=== PATIENT | female | born 1955 | race Caucasian/White ===

== ENCOUNTER → 2017-10-31 13:18 | Outpatient (CLI) | payer BC, SELFPAY ==
[2017-10-31 13:43] LABS: Basophils # 0.1 K/mm3 (0-0.2); Basophils % 0.8 % (0.1-2.0); Eosinophils # 0.3 K/mm3 (0.0-0.4); Eosinophils % 3.6 % (0.1-12.0); Hematocrit 42.8 % (37.0-47.0); Hemoglobin 13.3 g/dL (12.2-16.2); Lymphocytes # 2.3 K/mm3 (0.7-4.5); Lymphocytes % 26.3 K/mm3 (10-50); Mean Corpuscular HGB Conc 31.1 g/dL (31.8-35.4); Mean Corpuscular Hemoglobin 26.1 pg (27.0-31.2); Mean Corpuscular Volume 83.8 fl (81-99); Mean Platelet Volume 7.7 fl (7.4-10.4); Monocytes # 0.5 K/mm3 (0.1-1.0); Monocytes % 6.2 % (1.7-9.3); Neutrophils # 5.4 K/mm3 (1.8-7.8); Neutrophils % 63.1 % (37.0-80.0); Red Blood Count 5.11 M/mm3 (4.20-5.40); Red Cell Distribution Width 13.7 % (11.5-17.5); White Blood Count 8.6 K/mm3 (4.8-10.8)
[2017-10-31 13:55] LABS: Platelet Count 737 K/mm3 (142-424)
[2017-10-31 14:13] LABS: Alanine Aminotransferase 20 U/L (12-78); Albumin Level 4.1 gm/dL (3.4-5.0); Albumin/Globulin Ratio 1.3 (1.1-1.8); Alkaline Phosphatase 88 U/L (46-116); Anion Gap 12.6 mEq/L (5-15); Aspartate Amino Transferase 17 U/L (15-37); Bilirubin,Total 0.5 mg/dL (0.2-1.0); Blood Urea Nitrogen 12 mg/dL (7-18); Calcium 9.8 mg/dL (8.5-10.1); Carbon Dioxide 30 mmol/L (21.0-32.0); Chloride 108 mmol/L (98-107); Chol/HDL Ratio 3.6 (1-3.5); Cholesterol 222 mg/dL (140-200); Creatinine,Serum 0.89 mg/dL (0.55-1.02); Estimated Glomerular Filt Rate 64 ml/min (>60); GFR (African American) 77 ML/MIN (>60); Globulin 3.1 gm/dl (1.3-3.2); Glucose 93 mg/dL (74-106); HDL Cholesterol 62 mg/dL (29-89); LDL Cholesterol 140 mg/dL (0-130); Potassium 4.6 mmoL/L (3.5-5.1); Sodium 146 mmol/L (136-145); Total Protein,Serum 7.2 gm/dL (6.4-8.2); Triglycerides 101 mg/dL (30-200); VLDL Cholesterol 20 mg/dL (0-40)
[2017-11-01 10:13] LABS: Vitamin D 25 Hydroxy 57.5 ng/mL (30.0-100.0)
== END ==
PROVIDERS: Visit Provider Internal Medicine Adolescent Medicine
DX: E78.5 Hyperlipidemia, unspecified (principal); E55.9 Vitamin D deficiency, unspecified; K22.710 Barrett's esophagus with low grade dysplasia
CPT/HCPCS: 36415; 80053; 80061; 82652; 85025

== ENCOUNTER → 2017-11-05 10:00 | Outpatient (CLI) | payer BC, SELFPAY ==
--- NOTE | 2017-11-05 10:15 | XR_ITS ---
XR chest 2V HISTORY: Shortness of breath ITS.REASON: ASTHMA ORDERING PHYSICIAN: Kemar Shore MD PATIENT AGE: 62 years COMPARISON: PA and lateral chest 11/29/2016 FINDINGS: The lung armstrong are fairly well-expanded and appear clear of infiltrate. There Is a focal opacity left base medial basilar segment which was seen on the previous chest film and also on previous CT scan the chest 11/29/2016 but is slightly more prominent on today's study but likely represents postinflammatory scarring. There is mild generalized cardiomegaly however the vascularity is normal and is no pleural fluid. There is mild dextroscoliotic curvature of the upper lumbar spine. IMPRESSION: Probable post inflammatory scarring left base however since the opacity is slightly more prominent than previous studies consider follow-up CT scan chest for better evaluation.
== END ==
PROVIDERS: PCP Internal Medicine Adolescent Medicine; Visit Provider Internal Medicine Adolescent Medicine
DX: J45.909 Unspecified asthma, uncomplicated (principal)
CPT/HCPCS: 71046

== ENCOUNTER → 2018-05-29 10:02 | Outpatient (CLI) | payer MEDICARE, SELFPAY ==
[2018-05-29 10:33] LABS: Basophils # 0.1 K/mm3 (0-0.2); Basophils % 0.9 % (0.1-2.0); Eosinophils # 0.3 K/mm3 (0.0-0.4); Eosinophils % 3.7 % (0.1-12.0); Hematocrit 43.2 % (37.0-47.0); Hemoglobin 13.4 g/dL (12.2-16.2); Lymphocytes # 2.2 K/mm3 (0.7-4.5); Lymphocytes % 27.3 % (10-50); Mean Corpuscular HGB Conc 31.1 g/dL (31.8-35.4); Mean Corpuscular Volume 80.3 fl (81-99); Mean Platelet Volume 6.8 fl (7.4-10.4); Monocytes # 0.5 K/mm3 (0.1-1.0); Monocytes % 6.1 % (1.7-9.3); Neutrophils # 4.9 K/mm3 (1.8-7.8); Neutrophils % 61.9 % (37.0-80.0); Platelet Count 844 K/mm3 (142-424); Red Blood Count 5.37 M/mm3 (4.20-5.40); Red Cell Distribution Width 14.6 % (11.5-17.5); White Blood Count 7.9 K/mm3 (4.8-10.8)
[2018-05-29 11:18] LABS: Alanine Aminotransferase 24 U/L (12-78); Albumin Level 4.1 gm/dL (3.4-5.0); Albumin/Globulin Ratio 1.2 (1.1-1.8); Alkaline Phosphatase 90 U/L (46-116); Anion Gap 14.2 mEq/L (5-15); Aspartate Amino Transferase 19 U/L (15-37); Bilirubin,Total 0.5 mg/dL (0.2-1.0); Blood Urea Nitrogen 10 mg/dL (7-18); Calcium 9.4 mg/dL (8.5-10.1); Carbon Dioxide 27 mmol/L (21.0-32.0); Chloride 106 mmol/L (98-107); Chol/HDL Ratio 3.3 (1-3.5); Cholesterol 196 mg/dL (140-200); Creatinine,Serum 0.86 mg/dL (0.55-1.02); Estimated Glomerular Filt Rate 66 ml/min (>60); Ferritin 13 ng/mL (8-388); GFR (African American) 80 ML/MIN (>60); Globulin 3.3 gm/dl (1.3-3.2); Glucose 96 mg/dL (74-106); HDL Cholesterol 60 mg/dL (29-89); LDL Cholesterol 120 mg/dL (0-130); Potassium 4.2 mmoL/L (3.5-5.1); Sodium 143 mmol/L (136-145); Total Protein,Serum 7.4 gm/dL (6.4-8.2); Triglycerides 81 mg/dL (30-200); VLDL Cholesterol 16 mg/dL (0-40)
[2018-05-30 09:23] LABS: Vitamin D 25 Hydroxy 50.2 ng/mL (30.0-100.0)
== END ==
PROVIDERS: Visit Provider Internal Medicine Adolescent Medicine
DX: E55.9 Vitamin D deficiency, unspecified (principal); D50.9 Iron deficiency anemia, unspecified; E78.5 Hyperlipidemia, unspecified
CPT/HCPCS: 36415; 80053; 80061; 82652; 82728; 85025

== ENCOUNTER → 2018-06-03 09:11 | Outpatient (CLI) | payer MEDICARE, SELFPAY ==
--- NOTE | 2018-06-03 09:18 | XR_ITS ---
XR foot wt bearing LT 3V, XR foot wt bearing RT 3V Ordering Physician: Ro Charles DPM Patient Age: 63 years: Female HISTORY: ITS.REASON: pain left foot pain at Arch of left foot Right foot pain at Heel. TECHNIQUE: Left foot 3 view weightbearing Right foot 3 view weightbearing COMPARISON :No studies prior to today LEFT FOOT there is mild narrowing degenerative changes at MTP joint. Bones well mineralized. Metatarsals intact no stress fracture. Adequate plantar arch bilateral... Note very slight medial position of the proximal phalanx third toe relative to the head of the third metatarsal. Here at the left foot compared to the right... ====== RIGHT FOOT Regarding pain at the heel there is a 5 mm plantar calcaneal spur. No additional findings at the calcaneus. 11 mm heel pad thickness . Certainly no heel pad thickening. Adequate plantar arch The forefoot demonstrates a mild hallux valgus deformity and mild degenerative changes at first MTP joint. IMPRESSION: Left foot . No prominent findings. mild degenerative changes first MTP joint are noted Right foot. Mild hallux deformity more evident on right. 5 mm plantar calcaneal spur noted.
== END ==
PROVIDERS: PCP Internal Medicine Adolescent Medicine; Visit Provider Podiatrist
DX: M79.673 Pain in unspecified foot (principal)
CPT/HCPCS: 73630; 87102; 87206; 87220

== ENCOUNTER → 2018-06-03 16:28 | Outpatient (CLI) | payer MEDICARE, SELFPAY | PROVIDERS: Visit Provider Podiatrist | DX: M79.672 Pain in left foot (principal); M79.671 Pain in right foot; B35.1 Tinea unguium | CPT/HCPCS: 73630; 87102; 87206; 87220 ==

== ENCOUNTER → 2018-06-04 12:58 | Outpatient (POV) | payer MEDICARE, SELFPAY | PROVIDERS: Visit Provider Dermatology | DX: Z00.00 Encounter for general adult medical examination without abnormal findings (principal) ==

== ENCOUNTER → 2018-11-30 09:47 | Outpatient (CLI) | payer MEDICARE, SELFPAY ==
[2018-11-30 10:09] LABS: Basophils # 0.1 K/mm3 (0-0.2); Basophils % 0.9 % (0.1-2.0); Eosinophils # 0.4 K/mm3 (0.0-0.4); Eosinophils % 4.3 % (0.1-12.0); Hematocrit 40.5 % (37.0-47.0); Hemoglobin 12.3 g/dL (12.2-16.2); Lymphocytes # 2.1 K/mm3 (0.7-4.5); Lymphocytes % 23.3 % (10-50); Mean Corpuscular HGB Conc 30.3 g/dL (31.8-35.4); Mean Corpuscular Hemoglobin 22.8 pg (27.0-31.2); Mean Corpuscular Volume 75.2 fl (81-99); Mean Platelet Volume 7.5 fl (7.4-10.4); Monocytes # 0.5 K/mm3 (0.1-1.0); Monocytes % 5.9 % (1.7-9.3); Neutrophils # 5.9 K/mm3 (1.8-7.8); Neutrophils % 65.7 % (37.0-80.0); Red Blood Count 5.39 M/mm3 (4.20-5.40); Red Cell Distribution Width 15.3 % (11.5-17.5)
[2018-11-30 10:41] LABS: Alanine Aminotransferase 18 U/L (12-78); Albumin Level 3.9 gm/dL (3.4-5.0); Albumin/Globulin Ratio 1.4 (1.1-1.8); Alkaline Phosphatase 70 U/L (46-116); Anion Gap 13.2 mEq/L (5-15); Aspartate Amino Transferase 16 U/L (15-37); Bilirubin,Total 0.5 mg/dL (0.2-1.0); Blood Urea Nitrogen 10 mg/dL (7-18); Calcium 9.1 mg/dL (8.5-10.1); Carbon Dioxide 28 mmol/L (21.0-32.0); Chloride 107 mmol/L (98-107); Chol/HDL Ratio 3.1 (1-3.5); Cholesterol 177 mg/dL (140-200); Creatinine,Serum 0.84 mg/dL (0.55-1.02); Estimated Glomerular Filt Rate 68 ml/min (>60); GFR (African American) 82 ML/MIN (>60); Globulin 2.8 gm/dl (1.3-3.2); Glucose 100 mg/dL (74-106); HDL Cholesterol 57 mg/dL (29-89); LDL Cholesterol 107 mg/dL (0-130); Potassium 4.2 mmoL/L (3.5-5.1); Sodium 144 mmol/L (136-145); Total Protein,Serum 6.7 gm/dL (6.4-8.2); Triglycerides 65 mg/dL (30-200); VLDL Cholesterol 13 mg/dL (0-40)
[2018-11-30 11:26] LABS: Platelet Count 1087 K/mm3 (142-424)
== END ==
PROVIDERS: Visit Provider Internal Medicine Adolescent Medicine
DX: E78.5 Hyperlipidemia, unspecified (principal); D50.9 Iron deficiency anemia, unspecified
CPT/HCPCS: 36415; 80053; 80061; 85025

== ENCOUNTER → 2018-12-19 11:41 | Outpatient (CLI) | payer MEDICARE, SELFPAY ==
[2018-12-19 12:26] LABS: Basophils # 0.1 K/mm3 (0-0.2); Basophils % 0.9 % (0.1-2.0); Eosinophils # 0.3 K/mm3 (0.0-0.4); Eosinophils % 3.7 % (0.1-12.0); Hematocrit 40.2 % (37.0-47.0); Hemoglobin 12.2 g/dL (12.2-16.2); Lymphocytes # 2.1 K/mm3 (0.7-4.5); Lymphocytes % 24.3 % (10-50); Mean Corpuscular HGB Conc 30.4 g/dL (31.8-35.4); Mean Corpuscular Hemoglobin 23.2 pg (27.0-31.2); Mean Corpuscular Volume 76.2 fl (81-99); Monocytes # 0.5 K/mm3 (0.1-1.0); Monocytes % 5.7 % (1.7-9.3); Neutrophils # 5.6 K/mm3 (1.8-7.8); Neutrophils % 65.4 % (37.0-80.0); Red Blood Count 5.27 M/mm3 (4.20-5.40); Red Cell Distribution Width 14.9 % (11.5-17.5); White Blood Count 8.5 K/mm3 (4.8-10.8)
[2018-12-19 12:31] LABS: Platelet Count 1065 K/mm3 (142-424)
[2018-12-19 15:28] LABS: Alanine Aminotransferase 12 U/L (12-78); Albumin/Globulin Ratio 1.4 (1.1-1.8); Alkaline Phosphatase 70 U/L (46-116); Anion Gap 14.5 mEq/L (5-15); Aspartate Amino Transferase 14 U/L (15-37); Bilirubin,Total 0.6 mg/dL (0.2-1.0); Blood Urea Nitrogen 11 mg/dL (7-18); Calcium 9.6 mg/dL (8.5-10.1); Carbon Dioxide 27 mmol/L (21.0-32.0); Chloride 107 mmol/L (98-107); Creatinine,Serum 0.79 mg/dL (0.55-1.02); Estimated Glomerular Filt Rate 73 ml/min (>60); Ferritin 11 ng/mL (8-388); GFR (African American) 88 ML/MIN (>60); Globulin 2.9 gm/dl (1.3-3.2); Glucose 94 mg/dL (74-106); Potassium 4.5 mmoL/L (3.5-5.1); Sodium 144 mmol/L (136-145); Total Protein,Serum 6.9 gm/dL (6.4-8.2)
[2018-12-20 09:15] LABS: Iron 33 ug/dL (27-139); UIBC 359 ug/dL (118-369)
[2018-12-20 16:15] LABS: Hemoglobin (Hgb) Solubility Negative (Negative)
[2018-12-20 17:12] LABS: Iron Saturation 8 % (15-55)
== END ==
PROVIDERS: Visit Provider Internal Medicine Medical Oncology
DX: D69.6 Thrombocytopenia, unspecified (principal)
CPT/HCPCS: 36415; 80053; 81270; 82728; 83021; 83540; 83550; 85025; 85660

== ENCOUNTER → 2018-12-27 07:45 | Outpatient (CLI) | payer MEDICARE, SELFPAY ==
--- NOTE | 2018-12-27 07:51 | US_ITS ---
PROCEDURE: US ABDOMEN LIMITED CLINICAL INDICATION: THROMBOCYSTOSIS COMPARISON: ABDPELW/O CT ABD PELVIS W/O CONTRAST from 05/07/2013 FINDINGS: The study was limited to evaluation of the left upper quadrant. The spleen is upper limits normal in size and shows homogeneous echogenicity. It measures 11.6-12.1 cm in length. There has been slight overall increase in size of the spleen since previous CT scan abdomen pelvis 05/07/2013 the left kidney measures 11.0 x 4.9 by 5.1 cm and there is a cortical thickness of 1.04 cm. There is no hydronephrosis or other abnormality. IMPRESSION: Borderline splenic enlargement, grossly normal appearing left kidney Dictated by: Dr. Dwayne Galvan MD 12/27/2018 08:[address] Dwayne Galvan MD in [place] 12/27/2018 08:53
== END ==
PROVIDERS: PCP Internal Medicine Adolescent Medicine; Visit Provider Internal Medicine Medical Oncology
DX: D69.6 Thrombocytopenia, unspecified (principal)
CPT/HCPCS: 76705

== ENCOUNTER → 2019-01-22 13:29 | Outpatient (CLI) | payer MEDICARE, SELFPAY ==
[2019-01-22 14:29] LABS: Basophils # 0.1 K/mm3 (0-0.2); Basophils % 1.3 % (0.1-2.0); Eosinophils # 0.3 K/mm3 (0.0-0.4); Hematocrit 42.4 % (42.0-52.0); Hemoglobin 12.7 g/dL (14.1-18.0); Lymphocytes # 1.8 K/mm3 (0.7-4.5); Mean Corpuscular Hemoglobin 23.6 pg (27.0-31.2); Mean Corpuscular Volume 78.6 fl (81-94); Mean Platelet Volume 7.7 fl (7.4-10.4); Monocytes # 0.4 K/mm3 (0.1-1.0); Monocytes % 5.6 % (1.7-9.3); Neutrophils # 5.2 K/mm3 (1.8-7.8); Neutrophils % 66.1 % (37.0-80.0); Platelet Count 567 K/mm3 (142-424); Red Cell Distribution Width 15.8 % (11.5-17.5); White Blood Count 7.8 K/mm3 (4.8-10.8)
[2019-01-22 14:42] LABS: Alanine Aminotransferase 17 U/L (12-78); Albumin/Globulin Ratio 1.4 (1.1-1.8); Alkaline Phosphatase 79 U/L (46-116); Anion Gap 14.2 mEq/L (5-15); Aspartate Amino Transferase 14 U/L (15-37); Bilirubin,Total 0.6 mg/dL (0.2-1.0); Blood Urea Nitrogen 11 mg/dL (7-18); Calcium 9.2 mg/dL (8.5-10.1); Carbon Dioxide 27 mmol/L (21.0-32.0); Chloride 106 mmol/L (98-107); Creatinine,Serum 0.79 mg/dL (0.70-1.30); Estimated Glomerular Filt Rate 98 ml/min (>60); GFR (African American) 119 ML/MIN (>60); Globulin 2.9 gm/dl (1.3-3.2); Glucose 68 mg/dL (74-106); Potassium 4.2 mmoL/L (3.5-5.1); Sodium 143 mmol/L (136-145); Total Protein,Serum 6.9 gm/dL (6.4-8.2)
== END ==
PROVIDERS: Visit Provider Internal Medicine Medical Oncology
DX: D69.6 Thrombocytopenia, unspecified (principal)
CPT/HCPCS: 36415; 80053; 85025

== ENCOUNTER → 2019-02-06 10:58 | Outpatient (CLI) | payer MEDICARE, SELFPAY ==
[2019-02-06 11:46] LABS: Basophils # 0.1 K/mm3 (0-0.2); Basophils % 1.4 % (0.1-2.0); Eosinophils # 0.3 K/mm3 (0.0-0.4); Eosinophils % 3.4 % (0.1-12.0); Hematocrit 40.6 % (42.0-52.0); Hemoglobin 12.2 g/dL (14.1-18.0); Lymphocytes # 2.2 K/mm3 (0.7-4.5); Lymphocytes % 23.9 % (10-50); Mean Corpuscular HGB Conc 30.1 g/dL (31.8-35.4); Mean Corpuscular Hemoglobin 23.9 pg (27.0-31.2); Mean Corpuscular Volume 79.4 fl (81-94); Mean Platelet Volume 8.7 fl (7.4-10.4); Monocytes # 0.5 K/mm3 (0.1-1.0); Monocytes % 5.8 % (1.7-9.3); Neutrophils # 6.1 K/mm3 (1.8-7.8); Neutrophils % 65.5 % (37.0-80.0); Platelet Count 618 K/mm3 (142-424); Red Blood Count 5.11 M/mm3 (4.60-6.20); Red Cell Distribution Width 17.5 % (11.5-17.5); White Blood Count 9.3 K/mm3 (4.8-10.8)
== END ==
PROVIDERS: Visit Provider Internal Medicine Hematology & Oncology
DX: D69.6 Thrombocytopenia, unspecified (principal)
CPT/HCPCS: 36415; 85025

== ENCOUNTER → 2019-03-06 13:23 | Outpatient (CLI) | payer MEDICARE, SELFPAY ==
[2019-03-06 13:36] LABS: Basophils # 0.1 K/mm3 (0-0.2); Basophils % 1.2 % (0.1-2.0); Eosinophils # 0.3 K/mm3 (0.0-0.4); Hematocrit 40.3 % (42.0-52.0); Hemoglobin 12.6 g/dL (14.1-18.0); Lymphocytes # 1.6 K/mm3 (0.7-4.5); Lymphocytes % 21.7 % (10-50); Mean Corpuscular HGB Conc 31.2 g/dL (31.8-35.4); Mean Corpuscular Hemoglobin 24.8 pg (27.0-31.2); Mean Corpuscular Volume 79.4 fl (81-94); Mean Platelet Volume 8.6 fl (7.4-10.4); Monocytes # 0.3 K/mm3 (0.1-1.0); Monocytes % 4.4 % (1.7-9.3); Neutrophils % 68.7 % (37.0-80.0); Platelet Count 529 K/mm3 (142-424); Red Blood Count 5.07 M/mm3 (4.60-6.20); Red Cell Distribution Width 17.8 % (11.5-17.5); White Blood Count 7.2 K/mm3 (4.8-10.8)
== END ==
PROVIDERS: Visit Provider Internal Medicine Hematology & Oncology
DX: D64.9 Anemia, unspecified (principal)
CPT/HCPCS: 36415; 85025

== ENCOUNTER → 2019-04-09 10:43 | Outpatient (CLI) | payer MEDICARE, SELFPAY ==
[2019-04-09 11:12] LABS: Basophils # 0.1 K/mm3 (0-0.2); Basophils % 1.4 % (0.1-2.0); Eosinophils # 0.2 K/mm3 (0.0-0.4); Eosinophils % 2.9 % (0.1-12.0); Hematocrit 41.1 % (42.0-52.0); Hemoglobin 12.8 g/dL (14.1-18.0); Lymphocytes # 1.4 K/mm3 (0.7-4.5); Lymphocytes % 24.7 % (10-50); Mean Corpuscular Hemoglobin 25.4 pg (27.0-31.2); Mean Corpuscular Volume 81.9 fl (81-94); Mean Platelet Volume 8.3 fl (7.4-10.4); Monocytes # 0.3 K/mm3 (0.1-1.0); Neutrophils # 3.9 K/mm3 (1.8-7.8); Neutrophils % 66.1 % (37.0-80.0); Platelet Count 392 K/mm3 (142-424); Red Blood Count 5.02 M/mm3 (4.60-6.20); Red Cell Distribution Width 17.6 % (11.5-17.5); White Blood Count 5.9 K/mm3 (4.8-10.8)
[2019-04-09 12:18] LABS: Alanine Aminotransferase 11 U/L (12-78); Albumin Level 3.8 gm/dL (3.4-5.0); Albumin/Globulin Ratio 1.5 (1.1-1.8); Alkaline Phosphatase 69 U/L (46-116); Anion Gap 14.5 mEq/L (5-15); Aspartate Amino Transferase 16 U/L (15-37); Bilirubin,Total 0.7 mg/dL (0.2-1.0); Blood Urea Nitrogen 10 mg/dL (7-18); Calcium 8.7 mg/dL (8.5-10.1); Carbon Dioxide 28 mmol/L (21.0-32.0); Chloride 110 mmol/L (98-107); Creatinine,Serum 0.98 mg/dL (0.70-1.30); Estimated Glomerular Filt Rate 77 ml/min (>60); GFR (African American) 93 ML/MIN (>60); Globulin 2.5 gm/dl (1.3-3.2); Glucose 101 mg/dL (74-106); Potassium 4.5 mmoL/L (3.5-5.1); Sodium 148 mmol/L (136-145); Total Protein,Serum 6.3 gm/dL (6.4-8.2)
== END ==
PROVIDERS: Visit Provider Internal Medicine Adolescent Medicine
DX: D64.9 Anemia, unspecified (principal)
CPT/HCPCS: 36415; 80053; 85025

== ENCOUNTER → 2019-04-16 08:13 | Outpatient (CLI) | payer MEDICARE, SELFPAY ==
--- NOTE | 2019-04-16 08:17 | CT_ITS ---
PROCEDURE: CT ABDOMEN PELVIS W CON CLINICAL INDICATION: HEMATURIA Microscopic hematuria, history of flank pain COMPARISON: ABDPELW CT ABD PELVIS W/ CONTRAST from 04/26/2013 ABDPELW/O CT ABD PELVIS W/O CONTRAST from 05/07/2013 TECHNIQUE: IV Contrast: 75ML OPTIRAY 350 Oral Contrast none Axial images obtained with sagittal and coronal reformats. All CT scans at the facility use one or more dose reduction, viz: automated exposure control, ma/kV adjustment per patient size (including targeted exams where dose is matched to indication, i.e. head), or iterative reconstruction technique. FINDINGS: LOWER THORAX: There is a moderate-sized hiatal hernia with thickening of the distal esophagus and fluid in the distal esophagus. There is minimal thickening of the pericardium posteriorly. ABDOMEN & PELVIS: Prior cholecystectomy. The liver, spleen, and adrenal glands have an unremarkable appearance. There is diffuse fatty infiltration of the pancreas. There is a retro aortic left renal vein. No renal or ureteral calculi are evident. There is minimal ectasia of the right ureter which is nonspecific. No definite obstructing calculi are evident. No intestinal obstruction or free air. There is a mild amount of retained colonic feces. No evidence of appendicitis or diverticulitis. There are scattered diverticula noted with no evidence of diverticulitis. There are post hysterectomy changes. There is mild thoracolumbar curvature convex right with degenerative changes in the thoracic and lumbar spine. IMPRESSION: 1. Moderate-sized hiatal hernia with distension and fluid of the distal esophagus with mild esophageal wall thickening distally. This is incompletely imaged. Upper endoscopy or barium swallow may provide further evaluation. 2. No renal or ureteral calculi. There is some minimal ectasia of the right ureter which is of questionable significance. No definite ureteral calculus apparent 3. Other nonacute findings as described above Dictated by: Bert Andre MD 04/17/2019 06:18 Electronically signed by Bert Andre MD in [facility] 04/17/2019 06:18
== END ==
PROVIDERS: PCP Internal Medicine Adolescent Medicine; Visit Provider Internal Medicine Adolescent Medicine
DX: R31.29 Other microscopic hematuria (principal)
CPT/HCPCS: 74177; Q9967

== ENCOUNTER 2019-05-09 10:00 | Outpatient (RCR) | payer MEDICARE, SELFPAY ==
--- NOTE | 2019-04-21 11:38 | HMH.PTOPEV ---
PT Outpatient Evaluation Rehab PT Outpatient Evaluation Start: 04/21/19 11:18 Freq: Status: Active Protocol: Document 04/21/19 11:19 KE (Rec: 04/21/19 11:38 KE [id number]) Electronically Signed By Christiano Almanzar, PT 04/21/19 11:19 Outpatient Therapy Subjective History Subjective History Pt reports h/o chronic B foot/ heel pain for ~1 yr, however, pt reports R > L sided pain currently, and marked improvement in both since using new PF splint. Pt reports localized R mid foot/ arch pain with prolonged standing/walking on concrete. Chief Complaint Pain,Stiff Symptom Type Ache,Throb,Sharp,Dull Symptoms Relieved By Nothing,Ice,Brace/Support Symptoms Aggravated By Standing,Walking Prior Functional Limitations Standing,Walking Current Functional Limitations Sitting,Walking Symptom Description Constant but Variable Level of pain today (0-10) 2 Pain scale - at its best (0-10) 2 Pain scale - at its worst (0-10) 6 Ankle/Foot Eval Gait Observation General Gait Pattern Observation Antalgic Gait Palpation Tenderness right Ankle/Foot Palpation Findings Tenderness Ankle/Foot Palpation Overall Comment 3/4 plantar fascia left Ankle/Foot Palpation Findings Tenderness Ankle/Foot Palpation Overall Comment 0-1/4 plantar fascia ROM right Ankle/Foot Dorsiflexion w/Knee Extended 0-5 Active Range Motion (degrees) Ankle/Foot Plantar Flexion Active Range 0-40 of Motion (degrees) Ankle/Foot Eversion Active Range of 0-20 Motion (degrees) Ankle/Foot Inversion Active Range of 0-35 Motion (degrees) left Ankle/Foot Dorsiflexion w/Knee Extended 0-5 Active Range Motion (degrees) Ankle/Foot Plantar Flexion Active Range 0-40 of Motion (degrees) Ankle/Foot Eversion Active Range of 0-20 Motion (degrees) Ankle/Foot Inversion Active Range of 0-35 Motion (degrees) MMT bilateral Ankle Dorsiflexion Strength Grade 4 Good Ankle Plantarflexion Strength Grade 4 Good Foot Eversion Strength Grade 4- Good- Foot Inversion Strength Grade 4- Good- Outpatient Therapy Assessment Impairments Problems/Impairmments Palpation Tenderness,Impaired Range of Motion,Impaired Strength,Impaired Gait Pattern ,Impaired Walking,Impaired Standing,Subjective C/O Pain, Impaired Self Care/Self Management Prognosis Rehab
== END 2019-05-09 11:00 | disposition home or self-care (01) ==
LOC: PT 10:00
PROVIDERS: Visit Provider Podiatrist
DX: M72.2 Plantar fascial fibromatosis (principal); M76.821 Posterior tibial tendinitis, right leg; M76.822 Posterior tibial tendinitis, left leg
CPT/HCPCS: 97035; 97110; 97163

== ENCOUNTER → 2019-05-15 14:59 | Outpatient (CLI) | payer MEDICARE, SELFPAY | PROVIDERS: Visit Provider Urology | DX: R31.0 Gross hematuria (principal) | CPT/HCPCS: 87086 ==

== ENCOUNTER → 2019-06-04 11:40 | Outpatient (CLI) | payer MEDICARE, SELFPAY ==
[2019-06-04 12:13] LABS: Basophils # 0.1 K/mm3 (0-0.2); Basophils % 1.4 % (0.1-2.0); Eosinophils # 0.2 K/mm3 (0.0-0.4); Eosinophils % 3.6 % (0.1-12.0); Hematocrit 42.3 % (37.0-47.0); Hemoglobin 13.8 g/dL (12.2-16.2); Lymphocytes # 1.6 K/mm3 (0.7-4.5); Lymphocytes % 23.6 % (10-50); Mean Corpuscular HGB Conc 32.5 g/dL (31.8-35.4); Mean Corpuscular Hemoglobin 27.8 pg (27.0-31.2); Mean Corpuscular Volume 85.4 fl (81-99); Mean Platelet Volume 8.3 fl (7.4-10.4); Monocytes # 0.4 K/mm3 (0.1-1.0); Monocytes % 6.1 % (1.7-9.3); Neutrophils # 4.4 K/mm3 (1.8-7.8); Neutrophils % 65.3 % (37.0-80.0); Platelet Count 382 K/mm3 (142-424); Red Blood Count 4.95 M/mm3 (4.20-5.40); Red Cell Distribution Width 15.9 % (11.5-17.5); White Blood Count 6.7 K/mm3 (4.8-10.8)
[2019-06-04 15:18] LABS: Chloride 103 mmol/L (98-107); Potassium 4.7 mmoL/L (3.5-5.1); Sodium 141 mmol/L (136-145)
[2019-06-04 15:21] LABS: Alanine Aminotransferase 14 U/L (12-78); Albumin Level 4.3 g/dl (3.5-5.0); Albumin/Globulin Ratio 1.7 (1.1-1.8); Alkaline Phosphatase 64 U/L (38-126); Anion Gap 12.7 mEq/L (5-15); Aspartate Amino Transferase 29 U/L (14-36); Bilirubin,Total 0.5 mg/dl (0.2-1.3); Blood Urea Nitrogen 13 mg/dl (7-17); Carbon Dioxide 30 mmol/L (22.0-30.0); Estimated Glomerular Filt Rate 72 ml/min (>60); GFR (African American) 87 ML/MIN (>60); Globulin 2.6 g/dL (1.3-3.2); Total Protein,Serum 6.9 g/dl (6.3-8.2)
[2019-06-04 15:22] LABS: Calcium 9.8 mg/dl (8.4-10.2); Glucose 81 mg/dl (74-100)
== END ==
PROVIDERS: Visit Provider Internal Medicine Medical Oncology
DX: D69.3 Immune thrombocytopenic purpura (principal); D50.9 Iron deficiency anemia, unspecified
CPT/HCPCS: 36415; 80053; 85025

== ENCOUNTER → 2019-08-27 09:44 | Outpatient (CLI) | payer MEDICARE, SELFPAY ==
[2019-08-27 10:06] LABS: Basophils # 0.1 K/mm3 (0-0.2); Basophils % 1.6 % (0.1-2.0); Eosinophils # 0.3 K/mm3 (0.0-0.4); Eosinophils % 4.8 % (0.1-12.0); Hematocrit 38.2 % (37.0-47.0); Hemoglobin 12.2 g/dL (12.2-16.2); Lymphocytes # 1.6 K/mm3 (0.7-4.5); Lymphocytes % 27.4 % (10-50); Mean Corpuscular HGB Conc 31.8 g/dL (31.8-35.4); Mean Corpuscular Hemoglobin 26.8 pg (27.0-31.2); Mean Corpuscular Volume 84.1 fl (81-99); Monocytes # 0.3 K/mm3 (0.1-1.0); Monocytes % 5.2 % (1.7-9.3); Neutrophils # 3.6 K/mm3 (1.8-7.8); Platelet Count 359 K/mm3 (142-424); Red Blood Count 4.54 M/mm3 (4.20-5.40); Red Cell Distribution Width 14.4 % (11.5-17.5); White Blood Count 5.9 K/mm3 (4.8-10.8)
[2019-08-27 10:47] LABS: Alanine Aminotransferase 18 U/L (12-78); Albumin Level 4.1 g/dl (3.5-5.0); Albumin/Globulin Ratio 1.6 (1.1-1.8); Alkaline Phosphatase 59 U/L (38-126); Anion Gap 12.2 mEq/L (5-15); Aspartate Amino Transferase 27 U/L (14-36); Bilirubin,Total 0.4 mg/dl (0.2-1.3); Blood Urea Nitrogen 9 mg/dl (7-17); Calcium 9.7 mg/dl (8.4-10.2); Carbon Dioxide 29 mmol/L (22.0-30.0); Chloride 103 mmol/L (98-107); Estimated Glomerular Filt Rate 72 ml/min (>60); GFR (African American) 87 ML/MIN (>60); Globulin 2.6 g/dL (1.3-3.2); Glucose 133 mg/dl (74-100); Potassium 4.2 mmoL/L (3.5-5.1); Sodium 140 mmol/L (136-145); Total Protein,Serum 6.7 g/dl (6.3-8.2)
== END ==
PROVIDERS: Visit Provider Internal Medicine Medical Oncology
DX: D64.9 Anemia, unspecified (principal)
CPT/HCPCS: 36415; 80053; 85025

== ENCOUNTER → 2020-01-15 09:52 | Outpatient (CLI) | payer MEDICARE, SELFPAY ==
[2020-01-15 10:31] LABS: Basophils # 0.1 K/mm3 (0-0.2); Basophils % 1.8 % (0.1-2.0); Eosinophils # 0.3 K/mm3 (0.0-0.4); Eosinophils % 3.8 % (0.1-12.0); Hematocrit 41.4 % (37.0-47.0); Hemoglobin 13.3 g/dL (12.2-16.2); Lymphocytes % 28.9 % (10-50); Mean Corpuscular Hemoglobin 25.5 pg (27.0-31.2); Mean Corpuscular Volume 79.7 fl (81-99); Mean Platelet Volume 7.9 fl (7.4-10.4); Monocytes # 0.4 K/mm3 (0.1-1.0); Neutrophils # 4.1 K/mm3 (1.8-7.8); Neutrophils % 59.5 % (37.0-80.0); Platelet Count 542 K/mm3 (142-424); Red Blood Count 5.19 M/mm3 (4.20-5.40); Red Cell Distribution Width 14.4 % (11.5-17.5); White Blood Count 6.8 K/mm3 (4.8-10.8)
[2020-01-15 11:18] LABS: Chloride 106 mmol/L (98-107)
[2020-01-15 11:19] LABS: Potassium 4.1 mmoL/L (3.5-5.1); Sodium 141 mmol/L (136-145)
[2020-01-15 11:21] LABS: Alanine Aminotransferase 14 U/L (12-78); Alkaline Phosphatase 68 U/L (38-126); Aspartate Amino Transferase 28 U/L (14-36); Bilirubin,Total 0.7 mg/dl (0.2-1.3); Blood Urea Nitrogen 12 mg/dl (7-17); Estimated Glomerular Filt Rate 72 ml/min (>60); GFR (African American) 87 ML/MIN (>60)
[2020-01-15 11:22] LABS: Albumin Level 4.3 g/dl (3.5-5.0); Albumin/Globulin Ratio 1.6 (1.1-1.8); Anion Gap 13.1 mEq/L (5-15); Calcium 9.7 mg/dl (8.4-10.2); Carbon Dioxide 26 mmol/L (22.0-30.0); Globulin 2.7 g/dL (1.3-3.2); Glucose 84 mg/dl (74-100)
== END ==
PROVIDERS: Visit Provider Internal Medicine Medical Oncology
DX: D64.9 Anemia, unspecified (principal)
CPT/HCPCS: 36415; 80053; 85025

== ENCOUNTER → 2020-06-15 10:58 | Outpatient (CLI) | payer MEDICARE, SELFPAY ==
[2020-06-15 11:34] LABS: Basophils # 0.2 K/mm3 (0-0.2); Basophils % 2.1 % (0.1-2.0); Eosinophils # 0.4 K/mm3 (0.0-0.4); Eosinophils % 5.1 % (0.1-12.0); Hematocrit 40.9 % (37.0-47.0); Hemoglobin 12.5 g/dL (12.2-16.2); Lymphocytes # 2.1 K/mm3 (0.7-4.5); Lymphocytes % 27.8 % (10-50); Mean Corpuscular HGB Conc 30.4 g/dL (31.8-35.4); Mean Corpuscular Volume 78.8 fl (81-99); Mean Platelet Volume 8.1 fl (7.4-10.4); Monocytes # 0.4 K/mm3 (0.1-1.0); Monocytes % 5.2 % (1.7-9.3); Neutrophils # 4.6 K/mm3 (1.8-7.8); Neutrophils % 59.8 % (37.0-80.0); Platelet Count 537 K/mm3 (142-424); Red Blood Count 5.19 M/mm3 (4.20-5.40); Red Cell Distribution Width 15.9 % (11.5-17.5); White Blood Count 7.6 K/mm3 (4.8-10.8)
[2020-06-15 11:46] LABS: Chloride 109 mmol/L (98-107); Sodium 143 mmol/L (136-145)
[2020-06-15 11:47] LABS: Potassium 4.3 mmoL/L (3.5-5.1)
[2020-06-15 11:49] LABS: Alanine Aminotransferase 13 U/L (12-78); Alkaline Phosphatase 83 U/L (38-126); Anion Gap 13.3 mEq/L (5-15); Aspartate Amino Transferase 25 U/L (14-36); Bilirubin,Total 0.5 mg/dl (0.2-1.3); Blood Urea Nitrogen 11 mg/dl (7-17); Carbon Dioxide 25 mmol/L (22.0-30.0); Estimated Glomerular Filt Rate 83 ml/min (>60); GFR (African American) 101 ML/MIN (>60)
[2020-06-15 11:50] LABS: Albumin Level 4.3 g/dl (3.5-5.0); Albumin/Globulin Ratio 1.9 (1.1-1.8); Calcium 9.3 mg/dl (8.4-10.2); Globulin 2.3 g/dL (1.3-3.2); Glucose 91 mg/dl (74-100); Total Protein,Serum 6.6 g/dl (6.3-8.2)
== END ==
PROVIDERS: Visit Provider Internal Medicine Medical Oncology
DX: D47.3 Essential (hemorrhagic) thrombocythemia (principal)
CPT/HCPCS: 36415; 80053; 85025

== ENCOUNTER 2020-06-29 22:43 | Emergency (ER) | payer MEDICARE, SELFPAY ==
[2020-06-29 23:19] VITALS: BP 174/117; PULSE 95; RESP 22; TEMP 36.7; O2SAT 98; BMI 26.1
--- NOTE | 2020-06-29 23:29 | ECG_ITS ---
APPROVED REPORT Exam: Resting ECG HR:87 bpm ECG Measurements Heart Rate 87 AXES MA 190 P 41 QRSd 76 QRS -13 QT 344 T 26 QTc 413 Conclusion Normal sinus rhythm Isolated Q-wave in III. Poor R wave progression, previously noted Abnormal ECG Electronically signed by : Kemar Shore, 07/01/2020 13:57:12
--- NOTE | 2020-06-29 23:29 | XR_ITS ---
PROCEDURE: XR CHEST 2V CLINICAL HISTORY: MIDSTERNAL CP COMPARISON: CR CXR2 CHEST-AP VIEW ONLY from 05/08/2013 CR CXR CHEST(2 VIEWS-NOT PORTABLE) from 11/29/2016 CT CTAC CTA-CHEST from 11/29/2016 CR CXR2V XR chest 2V from 11/05/2017 FINDINGS: The cardiomediastinal silhouette and pulmonary vascularity are within normal limits. The lungs are clear without infiltrates, suspicious nodules, or pleural effusions. There are degenerative changes in the thoracic spine with mild thoracolumbar scoliosis convex right IMPRESSION: No acute findings. Dictated by: Bert Andre MD 06/30/2020 05:45 Bert Andre MD in [facility] 06/30/2020 05:45
--- NOTE | 2020-06-29 23:37 | HMH.EDGENADL ---
ED Disposition Clinical Impression: Esophagitis GERD (gastroesophageal reflux disease) Qualifiers: Esophagitis presence: with esophagitis Esophagitis bleeding: without hemorrhage Qualified Code(s): K21.00 - Gastro-esophageal reflux disease with esophagitis, without bleeding Disposition: Home, Self-Care Condition on Discharge: Good Instructions: DI for Atypical Chest Pain Additional Instructions: Continue Protonix. Contact your sports journalist in the morning for further treatment. Referrals: Kemar Shore MD [Primary Care Provider] - - Critical Care Critical Care Time: No Attestation: On 06/29/20, the high probability of a clinically significant, sudden or life threatening deterioration of the following system(s) required my full and direct attention, intervention and personal management. The time I documented below is in addition to time spent performing reported procedures but includes the following listed in this critical care notation. Medical Decision Making - Morales Inquiry Pt receiving controlled substance: No Vital Signs: 06/29/20 23:19 Temperature 98.1 F Temperature Source Oral Pulse Rate [Right Brachial] 95 H Respiratory Rate 22 Blood Pressure [Right Arm] 174/117 H Blood Pressure Mean [Right Arm] 136 Blood Pressure Source [Right Arm] Automatic Cuff Blood Pressure Position [Right Arm] Sitting 02 Sat by Pulse Oximetry 98 Oxygen Delivery Method Room Air - Lab Data Lab Results 06/29/20 23:10: WBC 7.7, RBC 5.43 H, Hgb 12.9, Hct 41.5, MCV 76.5 L, MCH 23.9 L, MCHC 31.2 L, RDW 15.8, Plt Count 541 H, MPV 8.3, Neut % (Auto) 55.7, Lymph % (Auto) 32.1, [place] % (Auto) 6.7, Eos % (Auto) 3.9, Baso % (Auto) 1.7, Neut # (Auto) 4.3, Lymph # (Auto) 2.5, [place] # (Auto) 0.5, Eos # (Auto) 0.3, Baso # (Auto) 0.1 06/29/20 23:10: Sodium 141, Potassium 4.0, Chloride 105, Carbon Dioxide 26, Anion Gap 14.0, BUN 14, Creatinine 0.70, Estimated Creat Clear 63, Estimated GFR 83, Est GFR ( Amer) 101, Glucose 123 H, Calcium 10.8 H, Troponin I < 0.01, Amylase 61, Lipase 15 L 06/30/20 01:20: Troponin I < 0.01 Result diagrams: 06/29/20 23:10 06/29/20 23:10 Orders (Tests/Meds): ED MEDICATIONS Generic Name Dose Route Start Last Admin Trade Name Freq PRN Reason Stop Dose Admin Sodium Chloride 8 ml 06/29/20 23:31 06/29/20 23:38 Sodium Chloride 0.9% 10ml Vial IV 07/29/20 23:30 8 ml NEEDED PRN Administration dilute pepcid Discontinued Medications Generic Name Dose Route Start Last Admin Trade Name Freq PRN Reason Stop Dose Admin Famotidine 20 mg 06/29/20 23:31 06/29/20 23:38 Famotidine 20mg/2ml Vial IV 06/29/20 23:32 20 mg ONCE ONE Administration Metoclopramide HCl 10 mg 06/29/20 23:31 06/29/20 23:38 Metoclopramide Hcl 10mg/2ml Vial IVP 06/29/20 23:32 10 mg ONCE ONE Administration ORDERS Category Date Time Status CT abdomen pelvis w con Stat Cat Scan 06/30/20 00:01 Ordered XR chest 2V Stat Exams 06/29/20 23:29 Taken Troponin I Q3H Lab 06/30/20 05:30 Ordered - Radiology Data #1 Image(s): Chest Image Reviewed: Yes I reviewed the patient's radiology image Preliminary Findings: Normal/NAD - CT Data CT Scan: Abdomen, Pelvis Time Received: 01:15 ([facility] fax) ED CT Reviewed: Yes: I have viewed the radiologist's interpretation Findings Narrative: Moderate hiatal hernia. Circumferential wall thickening of the visualized distal esophagus with intraluminal fluid and air-fluid level, which may be related to delayed clearance versus gastroesophageal reflux. Prominent gastric mucosa which may be related to incomplete distention and/or gastritis. Mild to moderate constipation. - ECG Data Tracing #1 EKG interpreted by Cristofer Conner MD: Rhythm: sinus Rate: 87 [place]: normal Ectopy: none Conduction: normal ST Segment Changes: none T Wave Changes: none Q Waves: none Poor R wave progression Baseline wander present, but I consider the E
[2020-06-29 23:43] LABS: Chloride 105 mmol/L (98-107); Sodium 141 mmol/L (136-145)
[2020-06-29 23:46] LABS: Amylase 61 U/L (30-110); Blood Urea Nitrogen 14 mg/dl (7-17); Calcium 10.8 mg/dl (8.4-10.2); Carbon Dioxide 26 mmol/L (22.0-30.0); Creatinine Clearance Estimated 63 mL/min (50-200); Estimated Glomerular Filt Rate 83 ml/min (>60); GFR (African American) 101 ML/MIN (>60); Glucose 123 mg/dl (74-100); Lipase 15 U/L (23-300)
[2020-06-29 23:48] LABS: Basophils # 0.1 K/mm3 (0-0.2); Basophils % 1.7 % (0.1-2.0); Eosinophils # 0.3 K/mm3 (0.0-0.4); Eosinophils % 3.9 % (0.1-12.0); Hematocrit 41.5 % (37.0-47.0); Hemoglobin 12.9 g/dL (12.2-16.2); Lymphocytes # 2.5 K/mm3 (0.7-4.5); Lymphocytes % 32.1 % (10-50); Mean Corpuscular HGB Conc 31.2 g/dL (31.8-35.4); Mean Corpuscular Hemoglobin 23.9 pg (27.0-31.2); Mean Corpuscular Volume 76.5 fl (81-99); Mean Platelet Volume 8.3 fl (7.4-10.4); Monocytes # 0.5 K/mm3 (0.1-1.0); Monocytes % 6.7 % (1.7-9.3); Neutrophils # 4.3 K/mm3 (1.8-7.8); Neutrophils % 55.7 % (37.0-80.0); Platelet Count 541 K/mm3 (142-424); Red Blood Count 5.43 M/mm3 (4.20-5.40); Red Cell Distribution Width 15.8 % (11.5-17.5); White Blood Count 7.7 K/mm3 (4.8-10.8)
[2020-06-30] VITALS: BP 156/89; PULSE 72; RESP 18; O2SAT 99
--- NOTE | 2020-06-30 00:01 | CT_ITS ---
PROCEDURE: CT ABDOMEN PELVIS W CON CLINICAL INDICATION: MIDEPIGASTRIC PAIN Mid epigastric pain COMPARISON: CT CT ABDOMEN PELVIS W CON from 04/16/2019 TECHNIQUE: IV Contrast: 75ML Isovue 370 Oral Contrast None Axial images obtained with sagittal and coronal reformats. All CT scans at the facility use one or more dose reduction, viz: automated exposure control, ma/kV adjustment per patient size (including targeted exams where dose is matched to indication, i.e. head), or iterative reconstruction technique. FINDINGS: LOWER THORAX: Medium hiatal hernia with thickening of the esophagus at the GE junction nonspecific. Small amount fluid is present in the distal esophagus. Mild cardiomegaly. Minimal thickening of the pericardium posteriorly ABDOMEN & PELVIS: Prior cholecystectomy. Liver, spleen, and adrenal glands have an unremarkable appearance. There is diffuse fatty infiltration the pancreas. Unremarkable appearing kidneys. There is given history of prior appendectomy. Moderate amount of retained colonic feces. Nonspecific small bowel gas pattern with a few scattered air-fluid levels within nondistended small bowel. There are few colonic diverticula but no evidence of diverticulitis. No intestinal obstruction or free air. Thoracolumbar scoliosis convex right with mild lumbar scoliosis convex left. Degenerative changes are present in the hips and spine. Mild pectus excavatum. IMPRESSION: 1. Medium-sized hiatal hernia with thickening of the distal esophagus with fluid in the distal esophagus which may be related to reflux or delayed clearance. 2. Constipation. 3. Colonic diverticulosis. No evidence of diverticulitis Dictated by: Bert Andre MD 06/30/2020 07:29 Bert Andre MD in [place] 06/30/2020 07:29
[2020-06-30 00:20] LABS: Troponin I < 0.01 ng/ml (0.00-0.034)
[2020-06-30 01:00] VITALS: BP 149/85; PULSE 73; RESP 18; O2SAT 98
--- NOTE | 2020-06-30 01:06 | PC.NURSE ---
CT RECEIVED VFROM [facility]
[2020-06-30 01:51] LABS: Troponin I < 0.01 ng/ml (0.00-0.034)
[2020-06-30 02:23] VITALS: BP 141/74; PULSE 68; RESP 16; TEMP 36.6; O2SAT 98
== END 2020-06-30 02:26 | disposition home or self-care (01) ==
PROVIDERS: Emergency Provider Emergency Medicine; PCP Internal Medicine Adolescent Medicine
DX: K21.00 Gastro-esophageal reflux disease with esophagitis, without bleeding (principal); K59.00 Constipation, unspecified; I10 Essential (primary) hypertension; E78.5 Hyperlipidemia, unspecified; Z79.899 Other long term (current) drug therapy
CPT/HCPCS: 71046; 74177; 80048; 82150; 83690; 84484; 85025; 93005; 96374; 96375; 99282; Q9967

== ENCOUNTER → 2020-12-23 11:01 | Outpatient (CLI) | payer MEDICARE, SELFPAY ==
[2020-12-23 11:16] LABS: Basophils # 0.1 K/mm3 (0-0.2); Eosinophils # 0.4 K/mm3 (0.0-0.4); Eosinophils % 6.1 % (0.1-12.0); Hematocrit 42.9 % (37.0-47.0); Hemoglobin 12.8 g/dL (12.2-16.2); Lymphocytes # 1.9 K/mm3 (0.7-4.5); Lymphocytes % 27.2 % (10-50); Mean Corpuscular HGB Conc 29.9 g/dL (31.8-35.4); Mean Corpuscular Hemoglobin 25.2 pg (27.0-31.2); Mean Corpuscular Volume 84.1 fl (81-99); Mean Platelet Volume 9.2 fl (7.4-10.4); Monocytes # 0.3 K/mm3 (0.1-1.0); Monocytes % 4.4 % (1.7-9.3); Neutrophils # 4.2 K/mm3 (1.8-7.8); Neutrophils % 60.3 % (37.0-80.0); Platelet Count 495 K/mm3 (142-424); Red Cell Distribution Width 18.5 % (11.5-17.5); White Blood Count 6.9 K/mm3 (4.8-10.8)
[2020-12-23 11:45] LABS: Chloride 108 mmol/L (98-107); Potassium 4.1 mmoL/L (3.5-5.1); Sodium 143 mmol/L (136-145)
[2020-12-23 11:47] LABS: Alanine Aminotransferase 11 U/L (12-78); Aspartate Amino Transferase 25 U/L (14-36); Blood Urea Nitrogen 9 mg/dl (7-17); Estimated Glomerular Filt Rate 83 ml/min (>60); GFR (African American) 101 ML/MIN (>60)
[2020-12-23 11:48] LABS: Albumin Level 3.8 g/dl (3.5-5.0); Albumin/Globulin Ratio 1.4 (1.1-1.8); Alkaline Phosphatase 84 U/L (38-126); Anion Gap 12.1 mEq/L (5-15); Bilirubin,Total 0.5 mg/dl (0.2-1.3); Calcium 9.3 mg/dl (8.4-10.2); Carbon Dioxide 27 mmol/L (22.0-30.0); Globulin 2.7 g/dL (1.3-3.2); Glucose 96 mg/dl (74-100); Total Protein,Serum 6.5 g/dl (6.3-8.2)
== END ==
PROVIDERS: Visit Provider Internal Medicine Medical Oncology
DX: D75.839 Thrombocytosis, unspecified (principal); I10 Essential (primary) hypertension; E78.5 Hyperlipidemia, unspecified
CPT/HCPCS: 36415; 80053; 85025

== ENCOUNTER → 2021-04-05 11:52 | Outpatient (CLI) | payer MEDICARE, SELFPAY | PROVIDERS: PCP Internal Medicine Adolescent Medicine; Visit Provider Surgery | DX: Z01.812 Encounter for preprocedural laboratory examination (principal); Z11.52 Encounter for screening for COVID-19; Z13.810 Encounter for screening for upper gastrointestinal disorder; Z87.19 Personal history of other diseases of the digestive system | CPT/HCPCS: C9803; U0003; U0005 ==

== ENCOUNTER → 2021-06-29 12:22 | Outpatient (CLI) | payer MEDICARE, SELFPAY ==
[2021-06-29 14:00] LABS: Basophils # 0.2 K/mm3 (0-0.2); Basophils % 2.4 % (0.1-2.0); Eosinophils # 0.3 K/mm3 (0.0-0.4); Hematocrit 40.3 % (37.0-47.0); Hemoglobin 12.6 g/dL (12.2-16.2); Lymphocytes # 1.6 K/mm3 (0.7-4.5); Lymphocytes % 23.3 % (10-50); Mean Corpuscular HGB Conc 31.2 g/dL (31.8-35.4); Mean Corpuscular Hemoglobin 24.9 pg (27.0-31.2); Mean Corpuscular Volume 79.7 fl (81-99); Mean Platelet Volume 8.7 fl (7.4-10.4); Monocytes # 0.4 K/mm3 (0.1-1.0); Neutrophils # 4.6 K/mm3 (1.8-7.8); Neutrophils % 65.4 % (37.0-80.0); Platelet Count 386 K/mm3 (142-424); Red Blood Count 5.06 M/mm3 (4.20-5.40); Red Cell Distribution Width 15.9 % (11.5-17.5)
[2021-06-29 14:24] LABS: Alanine Aminotransferase 13 U/L (12-78); Albumin Level 4.4 g/dl (3.5-5.0); Albumin/Globulin Ratio 1.8 (1.1-1.8); Alkaline Phosphatase 63 U/L (38-126); Anion Gap 12.5 mEq/L (5-15); Aspartate Amino Transferase 26 U/L (14-36); Bilirubin,Total 0.6 mg/dl (0.2-1.3); Blood Urea Nitrogen 14 mg/dl (7-17); Calcium 9.1 mg/dl (8.4-10.2); Carbon Dioxide 25 mmol/L (22.0-30.0); Chloride 109 mmol/L (98-107); Estimated Glomerular Filt Rate 71 ml/min (>60); GFR (African American) 86 ML/MIN (>60); Globulin 2.4 g/dL (1.3-3.2); Glucose 89 mg/dl (74-100); Potassium 4.5 mmoL/L (3.5-5.1); Sodium 142 mmol/L (136-145); Total Protein,Serum 6.8 g/dl (6.3-8.2)
== END ==
PROVIDERS: Visit Provider Internal Medicine Medical Oncology
DX: D75.839 Thrombocytosis, unspecified (principal)
CPT/HCPCS: 36415; 80053; 85025

== ENCOUNTER → 2022-01-02 14:28 | Outpatient (CLI) | payer MEDICARE, SELFPAY ==
[2022-01-02 15:17] LABS: Basophils # 0.2 K/mm3 (0-0.2); Basophils % 2.8 % (0.1-2.0); Eosinophils # 0.4 K/mm3 (0.0-0.4); Eosinophils % 5.1 % (0.1-12.0); Hematocrit 40.1 % (37.0-47.0); Hemoglobin 12.5 g/dL (12.2-16.2); Lymphocytes # 1.9 K/mm3 (0.7-4.5); Lymphocytes % 21.7 % (10-50); Mean Corpuscular HGB Conc 31.2 g/dL (31.8-35.4); Mean Corpuscular Hemoglobin 22.9 pg (27.0-31.2); Mean Corpuscular Volume 73.5 fl (81-99); Mean Platelet Volume 8.3 fl (7.4-10.4); Monocytes # 0.4 K/mm3 (0.1-1.0); Monocytes % 5.2 % (1.7-9.3); Neutrophils # 5.6 K/mm3 (1.8-7.8); Neutrophils % 65.1 % (37.0-80.0); Platelet Count 556 K/mm3 (142-424); Red Blood Count 5.45 M/mm3 (4.20-5.40); Red Cell Distribution Width 16.9 % (11.5-17.5); White Blood Count 8.6 K/mm3 (4.8-10.8)
[2022-01-02 15:42] LABS: Chloride 105 mmol/L (98-107); Potassium 4.7 mmoL/L (3.5-5.1); Sodium 144 mmol/L (136-145)
[2022-01-02 15:45] LABS: Alanine Aminotransferase 12 U/L (12-78); Albumin Level 4.6 g/dl (3.5-5.0); Albumin/Globulin Ratio 1.8 (1.1-1.8); Alkaline Phosphatase 80 U/L (38-126); Anion Gap 14.7 mEq/L (5-15); Aspartate Amino Transferase 31 U/L (14-36); Bilirubin,Total 0.7 mg/dl (0.2-1.3); Blood Urea Nitrogen 12 mg/dl (7-17); Carbon Dioxide 29 mmol/L (22.0-30.0); Estimated Glomerular Filt Rate 71 ml/min (>60); GFR (African American) 86 ML/MIN (>60); Globulin 2.5 g/dL (1.3-3.2); Total Protein,Serum 7.1 g/dl (6.3-8.2)
[2022-01-02 15:46] LABS: Calcium 9.4 mg/dl (8.4-10.2); Glucose 104 mg/dl (74-100)
== END ==
PROVIDERS: PCP Internal Medicine Adolescent Medicine; Visit Provider Internal Medicine Medical Oncology
DX: D50.8 Other iron deficiency anemias (principal); D69.6 Thrombocytopenia, unspecified
CPT/HCPCS: 36415; 80053; 85025

== ENCOUNTER → 2022-06-29 12:35 | Outpatient (CLI) | payer MEDICARE, SELFPAY ==
[2022-06-29 12:57] LABS: Basophils # 0.2 K/mm3 (0-0.2); Basophils % 1.7 % (0.1-2.0); Eosinophils # 0.8 K/mm3 (0.0-0.4); Eosinophils % 8.2 % (0.1-12.0); Hematocrit 40.1 % (37.0-47.0); Hemoglobin 12.4 g/dL (12.2-16.2); Lymphocytes # 2.2 K/mm3 (0.7-4.5); Mean Corpuscular Hemoglobin 22.1 pg (27.0-31.2); Mean Corpuscular Volume 71.6 fl (81-99); Mean Platelet Volume 8.3 fl (7.4-10.4); Monocytes # 0.5 K/mm3 (0.1-1.0); Monocytes % 4.9 % (1.7-9.3); Neutrophils # 6.3 K/mm3 (1.8-7.8); Neutrophils % 63.3 % (37.0-80.0); Platelet Count 547 K/mm3 (142-424); Red Cell Distribution Width 17.6 % (11.5-17.5); White Blood Count 9.9 K/mm3 (4.8-10.8)
[2022-06-29 14:37] LABS: Alanine Aminotransferase 13 U/L (12-78); Albumin Level 4.4 g/dl (3.5-5.0); Albumin/Globulin Ratio 1.7 (1.1-1.8); Alkaline Phosphatase 73 U/L (38-126); Anion Gap 8.6 mEq/L (5-15); Aspartate Amino Transferase 28 U/L (14-36); Bilirubin,Total 0.6 mg/dl (0.2-1.3); Blood Urea Nitrogen 13 mg/dl (7-17); Calcium 8.8 mg/dl (8.4-10.2); Carbon Dioxide 27 mmol/L (22.0-30.0); Chloride 106 mmol/L (98-107); Estimated Glomerular Filt Rate 71 ml/min (>60); GFR (African American) 86 ML/MIN (>60); Globulin 2.6 g/dL (1.3-3.2); Glucose 85 mg/dl (74-100); Potassium 4.6 mmoL/L (3.5-5.1); Sodium 137 mmol/L (136-145)
[2022-06-29 16:14] LABS: Iron 28 ug/dL (37-170)
[2022-06-29 16:23] LABS: Total Iron Binding Capacity 420 ug/dL (265-497)
[2022-06-29 16:50] LABS: Ferritin 6.25 ng/ml (11.1-264)
== END ==
PROVIDERS: PCP Internal Medicine Adolescent Medicine; Visit Provider Internal Medicine Medical Oncology
DX: D75.838 Other thrombocytosis (principal); D50.9 Iron deficiency anemia, unspecified
CPT/HCPCS: 36415; 80053; 82728; 83540; 83550; 85025

== ENCOUNTER → 2022-07-17 11:32 | Outpatient (CLI) | payer MEDICARE, SELFPAY ==
--- NOTE | 2022-07-17 11:37 | XR_ITS ---
FINAL REPORT CLINICAL HISTORY: RIGHT HIP PAIN, no injury FINDINGS: 2 views of the right hip were obtained. There is no acute fracture or dislocation. There are mild hypertrophic changes at the acetabular margin. There is mild narrowing of the right hip joint space. There are no soft tissue abnormalities. IMPRESSION: Mild osteoarthritis. Reviewed, Interpreted and Dictated by Donn Murguia MD Transcribed by Andrews Morley Authenticated and [facility]
== END ==
LOC: RAD 11:33
PROVIDERS: PCP Internal Medicine Adolescent Medicine; Visit Provider Internal Medicine Adolescent Medicine
DX: M25.551 Pain in right hip (principal)
CPT/HCPCS: 73502

== ENCOUNTER 2022-07-18 11:30 | Outpatient (CLI) | payer MEDICARE, SELFPAY ==
[2022-07-18 11:57] VITALS: BP 158/85; PULSE 84; RESP 18; O2SAT 97
[2022-07-18 12:42] VITALS: BP 152/87; PULSE 74; RESP 18; O2SAT 97
== END 2022-07-18 12:43 | disposition home or self-care (01) ==
LOC: INF 11:32
PROVIDERS: PCP Internal Medicine Adolescent Medicine; Visit Provider Internal Medicine Medical Oncology
DX: D47.3 Essential (hemorrhagic) thrombocythemia; D50.8 Other iron deficiency anemias
CPT/HCPCS: 96365; J1756

== ENCOUNTER 2022-07-25 09:46 | Outpatient (CLI) | payer MEDICARE, SELFPAY ==
[2022-07-25 10:02] VITALS: BP 155/92; PULSE 69; RESP 18; O2SAT 99
[2022-07-25 10:48] VITALS: BP 187/87; PULSE 69; RESP 18
== END 2022-07-25 10:48 | disposition home or self-care (01) ==
LOC: INF 09:47
PROVIDERS: PCP Internal Medicine Adolescent Medicine; Visit Provider Internal Medicine Medical Oncology
DX: D50.8 Other iron deficiency anemias; D47.3 Essential (hemorrhagic) thrombocythemia; D47.1 Chronic myeloproliferative disease
CPT/HCPCS: 96365; J1756

== ENCOUNTER 2022-07-31 13:56 | Outpatient (CLI) | payer MEDICARE, SELFPAY ==
[2022-07-31 14:16] VITALS: BP 155/84; PULSE 75; RESP 18; TEMP 36.7; O2SAT 98
[2022-07-31 14:55] VITALS: BP 148/79; PULSE 76; RESP 18; O2SAT 98
== END 2022-07-31 14:55 | disposition home or self-care (01) ==
LOC: INF 13:57
PROVIDERS: PCP Internal Medicine Adolescent Medicine; Visit Provider Internal Medicine Medical Oncology
DX: D47.3 Essential (hemorrhagic) thrombocythemia (principal)
CPT/HCPCS: 96365; J1756

== ENCOUNTER 2022-08-08 11:12 | Outpatient (CLI) | payer MEDICARE, SELFPAY ==
[2022-08-08 12:07] VITALS: BP 156/71; PULSE 48; RESP 18; TEMP 36.4; O2SAT 98
[2022-08-08 12:45] VITALS: BP 148/69; PULSE 51; RESP 18; O2SAT 98
== END 2022-08-08 12:52 | disposition home or self-care (01) ==
LOC: INF 11:13
PROVIDERS: PCP Internal Medicine Adolescent Medicine; Visit Provider Internal Medicine Medical Oncology
DX: D47.3 Essential (hemorrhagic) thrombocythemia (principal); D50.9 Iron deficiency anemia, unspecified
CPT/HCPCS: 96365; J1756

== ENCOUNTER 2022-08-16 10:33 | Outpatient (CLI) | payer MEDICARE, SELFPAY ==
[2022-08-16 11:00] VITALS: BP 137/85; PULSE 72; RESP 18; O2SAT 99
[2022-08-16 11:50] VITALS: BP 141/78; PULSE 74; RESP 18; O2SAT 99
== END 2022-08-16 11:50 | disposition home or self-care (01) ==
LOC: INF 10:34
PROVIDERS: PCP Internal Medicine Adolescent Medicine; Visit Provider Internal Medicine Medical Oncology
DX: D47.3 Essential (hemorrhagic) thrombocythemia (principal); D50.9 Iron deficiency anemia, unspecified
CPT/HCPCS: 96365; J1756

== ENCOUNTER 2022-09-20 11:00 | Outpatient (RCR) | payer MEDICARE, SELFPAY ==
--- NOTE | 2022-07-26 11:55 | HMH.PTOPEV ---
PT Outpatient Evaluation Rehab PT Outpatient Evaluation Start: 07/26/22 11:39 Freq: Status: Active Protocol: Document 07/26/22 11:39 SARIKA (Rec: 07/26/22 11:55 SARIKA [id number]) E-signed By El Dow, PT Outpatient Therapy Subjective History Subjective History Patient is a 67 year old female presenting to outpatient PT with reports of chronic R hip pain. Patient reports onset of pain started after a misstep on uneven ground. Most recent imaging indicates mild OA. Pain specific to lateral thigh that radiates to R anterior thigh. Comorbidities include hx of asthma, acid reflux, aggie, appy, hysterectomy and scoliosis. Chief Complaint Pain Symptom Type Sharp,Shooting Symptoms Relieved By Rest/Positioning Symptoms Aggravated By Standing,Physical Activity, Walking Prior Functional Limitations None Current Functional Limitations Housework,Standing,Walking Symptom Description Intermittent Level of pain today (0-10) 1 Pain scale - at its best (0-10) 0 Pain scale - at its worst (0-10) 8 Hip/Knee Eval Gait Observation General Gait Pattern Observation Antalgic Gait,Decrease Weight Bear (R) Assistive Device Assistive Devices None / NA Palpation Tenderness right Knee Palpation Overall Comment Piriformis, greater trochanter , TFL 3/4 Hip Palpation Findings Tenderness MMT Hip Flexion Strength Grade 4- Good- Hip Abduction Strength Grade 4 Good Hip Adduction Strength Grade 4 Good Hip Extension Strength Grade 4- Good- Hip External Rotation Strength Grade 4- Good- Hip Internal Rotation Strength Grade 4 Good Knee Extension Strength Grade 5 Normal Knee Flexion Strength Grade 5 Normal ROM Hip Flexion w/Knee Flexed Passive Range WNL of Motion (degrees) Hip Flexion w/Knee Extended Passive 46 Range of Motion (degrees) Hip Abduction Passive Range of Motion ( 38 degrees) Hip Extension Passive Range of Motion ( 6 degrees) Hip External Rotation Passive Range of WNL Motion (degrees) Hip Internal Rotation Passive Range of 7 Motion (degrees) Hip ROM Limitations Soft Tissue Tightness Knee ROM Reason Not Measured Within Functional Limits Special Tests
== END 2022-09-20 11:05 | disposition home or self-care (01) ==
LOC: PT 11:00
PROVIDERS: PCP Internal Medicine Adolescent Medicine; Visit Provider Nurse Practitioner Family
DX: M25.551 Pain in right hip (principal)
CPT/HCPCS: 97010; 97014; 97110; 97112; 97140; 97163; 97164; 97530; G0283

== ENCOUNTER → 2022-11-22 11:07 | Outpatient (CLI) | payer MEDICARE, SELFPAY ==
[2022-11-22 12:01] LABS: Basophils # 0.1 K/mm3 (0-0.2); Basophils % 1.2 % (0.1-2.0); Eosinophils # 0.5 K/mm3 (0.0-0.4); Eosinophils % 6.8 % (0.1-12.0); Hematocrit 41.5 % (37.0-47.0); Hemoglobin 13.4 g/dL (12.2-16.2); Lymphocytes # 1.5 K/mm3 (0.7-4.5); Mean Corpuscular HGB Conc 32.3 g/dL (31.8-35.4); Mean Corpuscular Hemoglobin 29.3 pg (27.0-31.2); Mean Corpuscular Volume 90.5 fl (81-99); Mean Platelet Volume 8.2 fl (7.4-10.4); Monocytes # 0.4 K/mm3 (0.1-1.0); Monocytes % 5.8 % (1.7-9.3); Neutrophils # 4.7 K/mm3 (1.8-7.8); Neutrophils % 65.1 % (37.0-80.0); Platelet Count 634 K/mm3 (142-424); Red Blood Count 4.59 M/mm3 (4.20-5.40); Red Cell Distribution Width 17.8 % (11.5-17.5); White Blood Count 7.3 K/mm3 (4.8-10.8)
[2022-11-22 12:44] LABS: Chloride 109 mmol/L (98-107); Sodium 143 mmol/L (136-145)
[2022-11-22 12:45] LABS: Potassium 4.3 mmoL/L (3.5-5.1)
[2022-11-22 12:47] LABS: Alanine Aminotransferase 13 U/L (12-78); Alkaline Phosphatase 76 U/L (38-126); Anion Gap 12.3 mEq/L (5-15); Aspartate Amino Transferase 27 U/L (14-36); Bilirubin,Total 0.6 mg/dl (0.2-1.3); Blood Urea Nitrogen 9 mg/dl (7-17); Calcium 9.3 mg/dl (8.4-10.2); Carbon Dioxide 26 mmol/L (22.0-30.0); Estimated Glomerular Filt Rate 83 ml/min (>60); GFR (African American) 100 ML/MIN (>60); Glucose 81 mg/dl (74-100); Iron 71 ug/dL (37-170)
[2022-11-22 12:48] LABS: Albumin Level 3.8 g/dl (3.5-5.0); Albumin/Globulin Ratio 1.5 (1.1-1.8); Globulin 2.6 g/dL (1.3-3.2); Total Protein,Serum 6.4 g/dl (6.3-8.2)
[2022-11-22 12:57] LABS: Total Iron Binding Capacity 286 ug/dL (265-497)
[2022-11-22 13:22] LABS: Ferritin 55.8 ng/ml (11.1-264)
== END ==
PROVIDERS: PCP Internal Medicine Adolescent Medicine; Visit Provider Internal Medicine Medical Oncology
DX: D50.9 Iron deficiency anemia, unspecified (principal); D75.838 Other thrombocytosis; D47.3 Essential (hemorrhagic) thrombocythemia
CPT/HCPCS: 36415; 80053; 82728; 83540; 83550; 85025

== ENCOUNTER → 2022-12-19 09:05 | Outpatient (CLI) | payer MEDICARE, SELFPAY ==
--- NOTE | 2022-12-19 09:10 | XR_ITS ---
FINAL REPORT CLINICAL HISTORY: Osteoporosis screening COMPARISON: none FINDINGS: Using L1-4, the bone mineral density of the spine is 1.106 g/cm2, corresponding to T-score of 0.5, within normal limits. Using the left hip, the bone mineral density of the femoral neck is 0.828 g/cm2, corresponding to a T-score of -0.9, within normal limits. Using the right hip, the bone mineral density of the femoral neck is 0.900 g/cm2, corresponding to a T-score of -0.3, within normal limits. FRAX not reported because all T-scores at or above -1.0. NOTE: T-score: Standard deviation compared with peak bone mass of young adult mean. *Following the recommendations of the International Society of Bone densitometry, classification of hip BMD is based on the lower of two T-scores; total hip or femoral neck. IMPRESSION: Normal bone mineral density of the lumbar spine and hips. Reviewed, Interpreted and Dictated by John Weinberg III, MD Transcribed by Sara Major Authenticated and . [facility]
== END ==
PROVIDERS: PCP Internal Medicine Adolescent Medicine; Visit Provider Obstetrics & Gynecology Gynecology
DX: Z13.820 Encounter for screening for osteoporosis (principal); M81.0 Age-related osteoporosis without current pathological fracture
CPT/HCPCS: 77080

== ENCOUNTER 2023-02-14 21:29 | Emergency (ER) | payer MEDICARE, SELFPAY ==
[2023-02-14 21:31] VITALS: BP 160/82; PULSE 97; RESP 18; TEMP 36.8; O2SAT 100; BMI 23.1
[2023-02-14 22:00] VITALS: BP 150/89; PULSE 102; O2SAT 97
[2023-02-14 22:19] LABS: Basophils # 0.1 K/mm3 (0-0.2); Basophils % 0.6 % (0.1-2.0); Eosinophils # 0.3 K/mm3 (0.0-0.4); Eosinophils % 3.4 % (0.1-12.0); Hematocrit 38.5 % (37.0-47.0); Hemoglobin 13.2 g/dL (12.2-16.2); Lymphocytes # 0.8 K/mm3 (0.7-4.5); Lymphocytes % 8.4 % (10-50); Mean Corpuscular HGB Conc 34.2 g/dL (31.8-35.4); Mean Corpuscular Hemoglobin 32.2 pg (27.0-31.2); Mean Corpuscular Volume 94.1 fl (81-99); Mean Platelet Volume 8.4 fl (7.4-10.4); Monocytes # 0.5 K/mm3 (0.1-1.0); Monocytes % 5.5 % (1.7-9.3); Platelet Count 823 K/mm3 (142-424); Red Cell Distribution Width 17.7 % (11.5-17.5); White Blood Count 9.7 K/mm3 (4.8-10.8)
[2023-02-14 22:21] LABS: Chloride 99 mmol/L (98-107); Potassium 3.9 mmoL/L (3.5-5.1); Sodium 131 mmol/L (136-145)
[2023-02-14 22:23] LABS: Blood Urea Nitrogen 10 mg/dl (7-17)
[2023-02-14 22:24] LABS: Alanine Aminotransferase 17 U/L (12-78); Albumin Level 4.3 g/dl (3.5-5.0); Albumin/Globulin Ratio 1.5 (1.1-1.8); Alkaline Phosphatase 118 U/L (38-126); Anion Gap 8.9 mEq/L (5-15); Aspartate Amino Transferase 46 U/L (14-36); Bilirubin,Total 0.7 mg/dl (0.2-1.3); Calcium 8.9 mg/dl (8.4-10.2); Carbon Dioxide 27 mmol/L (22.0-30.0); Creatinine Clearance Estimated 54 mL/min (50-200); Estimated Glomerular Filt Rate 83 ml/min (>60); GFR (African American) 100 ML/MIN (>60); Globulin 2.9 g/dL (1.3-3.2); Glucose 123 mg/dl (74-100); Lipase 13 U/L (23-300); Total Protein,Serum 7.2 g/dl (6.3-8.2)
[2023-02-14 22:30] VITALS: BP 160/83; PULSE 106; O2SAT 95
[2023-02-14 22:39] LABS: Influenza A, PCR Not Detected (NotDetected); Influenza B, PCR Not Detected (NotDetected)
--- NOTE | 2023-02-14 22:42 | HMH.EDGENADL ---
Discharge Plan Disposition Patient Disposition: Home, Self-Care Condition: Good Prescriptions Prescriptions: New ondansetron 4 mg tablet,disintegrating 4 mg PO Q8H PRN (Reason: nausea and vomiting) 4 Days Qty: 12 0RF No Action ProAir HFA 90 mcg/actuation HFA aerosol inhaler 2 puff INHALATION Q4-6H PRN (Reason: allergies) fluticasone propion-salmeterol 250-50 mcg/dose blister with device 1 inh inhalation BID pantoprazole 40 mg tablet,delayed release (DR/EC) 40 mg PO DAILY 90 Days montelukast 10 mg tablet 10 mg PO DAILY 90 Days hydroxyurea 500 mg capsule 500 mg PO DIRECTED Patient Comments: TAKE ONE CAPSULE BY MOUTH EVERY DAY fluticasone propionate [Flonase Allergy Relief] 50 mcg/actuation spray,suspension 1 spray INTRANASAL BID Rx Instructions: administer into each nostril albuterol 90 mcg/actuation aerosol inhaler 90 mcg/actuation aerosol 90 mcg INHALATION NEEDED PRN (Reason: Breathing Problems) levocetirizine 5 mg tablet 5 mg PO DAILY Referrals Follow up/Referrals: Kemar Shore MD [Primary Care Provider] - See instructions Activity Restrictions/Add. Instructions Additional Instructions/Restrictions: You were evaluated in the emergency department today. You tested positive for COVID-19. Please grain picker your prescription for Zofran and take as needed for nausea and vomiting. Hydrate at home. Take Tylenol and ibuprofen at home as needed for pain and fever. Follow-up with your primary care provider over the next week for reassessment. Return to the emergency department for new or worsening symptoms. Clinical Impressions Clinical Impression: COVID-19, Nausea & vomiting Instructions Patient Instructions: DI for Nausea -- Adult, DI for COVID-19 (Suspected or Confirmed ) Discharge ED Provider: Nolan Rust General Adult HPI <Nolan Rust MD - Last Filed: 02/14/23 23:03> General Chief complaint: Abdominal Pain Stated complaint: vomiting Time Seen by Provider: 02/14/23 21:34 Mode of Arrival: Wheelchair Source of Information: Patient Limitations: No Limitations Description of Symptoms (Recalled from ER Triage Doc. by RN): Pt presents with abdominal cramping and vomiting over the past month, since her right hip replacement which was on Jan 15. States she has no appetite, and everything she does eat comes right back up. Pt denies any fever or diarrhea. States she has lost a significant amount of weight since her surgery. Hip is warm to touch, no redness noted. History of Present Illness HPI narrative: Patient is a 67-year-old female with past medical history of right hip replacement who presents emergency department for evaluation of vomiting. Patient states that since her hip replacement she has had persistent vomiting, limited ability to tolerate p.o. Patient also has history of previous hysterectomy and has significant hot flashes. No sick contacts. Still stooling. Related Data Home Medications Medication Instructions Recorded Confirmed montelukast 10 mg tablet 10 mg PO DAILY allergies 90 days 06/03/18 11/23/22 pantoprazole 40 mg tablet,delayed 40 mg PO DAILY GERD 90 days 06/03/18 11/23/22 release albuterol sulfate 90 mcg/actuation 2 puff inhalation Q4-6H PRN 11/05/18 11/23/22 aerosol inhaler (ProAir HFA) allergies hydroxyurea 500 mg capsule 500 mg PO DIRECTED anemia 04/15/19 11/23/22 albuterol 90 mcg/actuation aerosol 90 mcg inhalation NEEDED PRN 04/17/19 11/23/22 inhaler Breathing Problems fluticasone propionate 50 1 spray intranasal BID allergies 04/17/19 11/23/22 mcg/actuation nasal spray,suspension (Flonase Allergy Relief) levocetirizine 5 mg tablet 5 mg PO DAILY allergies 07/07/21 11/23/22 fluticasone 250 mcg-salmeterol 50 1 inh inhalation BID Breathing 01/05/22 11/23/22 mcg/dose blistr powdr for problems inhalation Previous Rx's Medication Instructions Recorded ondansetron 4 mg dis
[2023-02-14 23:03] LABS: Coronavirus 19, PCR Detected (NotDetected)
[2023-02-14 23:09] VITALS: BP 160/81; PULSE 56; O2SAT 95
[2023-02-14 23:27] VITALS: BP 169/90; PULSE 99; RESP 18; O2SAT 97
[2023-02-14 23:30] VITALS: BP 161/89; PULSE 101; RESP 16; O2SAT 98
--- NOTE | 2023-02-14 23:34 | PC.NURSE ---
Pt able to ambulate, but not able to tolerate PO intake. MD notified.
--- NOTE | 2023-02-14 23:45 | PC.NURSE ---
Pt able to tolerate PO intake at this time. aware.
[2023-02-15 00:07] VITALS: BP 169/72; PULSE 85; RESP 16; TEMP 37.3; O2SAT 98
== END 2023-02-15 00:09 | disposition home or self-care (01) ==
PROVIDERS: Emergency Provider Emergency Medicine; PCP Internal Medicine Adolescent Medicine
DX: U07.1 COVID-19 (principal); E87.1 Hypo-osmolality and hyponatremia; R11.2 Nausea with vomiting, unspecified; R10.819 Abdominal tenderness, unspecified site; K21.9 Gastro-esophageal reflux disease without esophagitis; I10 Essential (primary) hypertension; E78.5 Hyperlipidemia, unspecified; J45.909 Unspecified asthma, uncomplicated; Z96.641 Presence of right artificial hip joint
CPT/HCPCS: 80053; 83690; 85025; 87636; 96361; 96374; 96375; 99284; J2405

== ENCOUNTER 2023-04-03 12:55 | Outpatient (CLI) | payer MEDICARE, SELFPAY ==
[2023-04-05 14:29] LABS: Alpha-1-Globulin, U 4.3 % (.); Alpha-2-Globulin, U 13.2 % (.); Beta Globulin, U 21.6 % (.); Gamma Globulin, U 14.9 % (.); M-Spike, % Not Observed % (Not Observed); Protein,Total,Urine 4.8 mg/dL (Not Estab.)
[2023-04-09 09:27] LABS: PDF: SCANNED IMAGE
== END 2023-04-03 23:59 ==
LOC: LAB 12:56
PROVIDERS: PCP Internal Medicine Adolescent Medicine; Visit Provider Orthopaedic Surgery
DX: D50.9 Iron deficiency anemia, unspecified (principal); D69.6 Thrombocytopenia, unspecified
CPT/HCPCS: 84156; 84166; 86335

== ENCOUNTER 2023-04-24 11:40 | Outpatient (CLI) | payer MEDICARE, SELFPAY ==
[2023-04-24 12:18] LABS: Basophils # 0.2 K/mm3 (0-0.2); Eosinophils # 0.6 K/mm3 (0.0-0.4); Eosinophils % 6.2 % (0.1-12.0); Hematocrit 44.9 % (37.0-47.0); Hemoglobin 14.2 g/dL (12.2-16.2); Lymphocytes % 22.4 % (10-50); Mean Corpuscular HGB Conc 31.5 g/dL (31.8-35.4); Mean Corpuscular Hemoglobin 27.1 pg (27.0-31.2); Mean Corpuscular Volume 85.8 fl (81-99); Mean Platelet Volume 8.4 fl (7.4-10.4); Monocytes # 0.5 K/mm3 (0.1-1.0); Monocytes % 5.2 % (1.7-9.3); Neutrophils # 5.8 K/mm3 (1.8-7.8); Neutrophils % 64.2 % (37.0-80.0); Platelet Count 549 K/mm3 (142-424); Red Blood Count 5.23 M/mm3 (4.20-5.40); Red Cell Distribution Width 17.2 % (11.5-17.5); White Blood Count 9.1 K/mm3 (4.8-10.8)
[2023-04-24 13:00] LABS: Chloride 108 mmol/L (98-107)
[2023-04-24 13:01] LABS: Potassium 4.6 mmoL/L (3.5-5.1); Sodium 140 mmol/L (136-145)
[2023-04-24 13:03] LABS: Alanine Aminotransferase 14 U/L (12-78); Alkaline Phosphatase 76 U/L (38-126); Aspartate Amino Transferase 29 U/L (14-36); Bilirubin,Total 0.6 mg/dl (0.2-1.3); Blood Urea Nitrogen 13 mg/dl (7-17); Estimated Glomerular Filt Rate 71 ml/min (>60); GFR (African American) 86 ML/MIN (>60)
[2023-04-24 13:04] LABS: Albumin Level 4.1 g/dl (3.5-5.0); Albumin/Globulin Ratio 1.6 (1.1-1.8); Anion Gap 8.6 mEq/L (5-15); Calcium 9.2 mg/dl (8.4-10.2); Carbon Dioxide 28 mmol/L (22.0-30.0); Globulin 2.5 g/dL (1.3-3.2); Glucose 83 mg/dl (74-100); Iron 34 ug/dL (37-170); Total Protein,Serum 6.6 g/dl (6.3-8.2)
[2023-04-24 13:15] LABS: Total Iron Binding Capacity 382 ug/dL (265-497)
[2023-04-24 13:40] LABS: Ferritin 9.57 ng/ml (11.1-264)
== END 2023-04-24 23:59 ==
LOC: LAB 11:42
PROVIDERS: PCP Internal Medicine Adolescent Medicine; Visit Provider Internal Medicine Medical Oncology
DX: D75.838 Other thrombocytosis; D50.8 Other iron deficiency anemias
CPT/HCPCS: 36415; 80053; 82728; 83540; 83550; 85025

== ENCOUNTER 2023-04-30 09:58 | Outpatient (CLI) | payer MEDICARE, SELFPAY ==
[2023-04-30 10:15] VITALS: BP 143/84; PULSE 71; RESP 17; TEMP 36.9; O2SAT 98
[2023-04-30] MEDS: SODIUM CHLORIDE 0.9% 10ML FLUSH SYRINGE 10 ML IV (10:18)
[2023-04-30] MEDS: IRON SUCROSE COMPLEX 200 MG in 0.9 % SODIUM CHLORIDE 100 ML 220 MG IV (10:20)
[2023-04-30] MEDS: SODIUM CHLORIDE 0.9% 50ML BAG 50 ML IV (10:20)
== END 2023-04-30 11:00 | disposition home or self-care (01) ==
LOC: INF 10:00
PROVIDERS: PCP Internal Medicine Adolescent Medicine; Visit Provider Internal Medicine Medical Oncology
DX: D75.838 Other thrombocytosis (principal)
CPT/HCPCS: 96365; J1756

== ENCOUNTER 2023-05-07 10:17 | Outpatient (CLI) | payer MEDICARE, SELFPAY ==
[2023-05-07 10:40] VITALS: BP 121/70; PULSE 60; RESP 18; O2SAT 96
[2023-05-07] MEDS: 0.9 % SODIUM CHLORIDE 50 ML 100 ML IV (10:40)
[2023-05-07] MEDS: IRON SUCROSE COMPLEX 200 MG in 0.9 % SODIUM CHLORIDE 100 ML 220 MG IV (10:40)
[2023-05-07 11:10] VITALS: BP 142/76; PULSE 63; RESP 18; O2SAT 96
== END 2023-05-07 11:15 | disposition home or self-care (01) ==
LOC: INF 10:18
PROVIDERS: PCP Internal Medicine Adolescent Medicine; Visit Provider Internal Medicine Medical Oncology
DX: D50.8 Other iron deficiency anemias (principal); D69.6 Thrombocytopenia, unspecified
CPT/HCPCS: 96365; J1756

== ENCOUNTER 2023-05-14 10:19 | Outpatient (CLI) | payer MEDICARE, SELFPAY ==
[2023-05-14] MEDS: SODIUM CHLORIDE 0.9% 10ML FLUSH SYRINGE 10 ML IV (10:31)
[2023-05-14] MEDS: SODIUM CHLORIDE 0.9% 50ML BAG 50 ML IV (10:31)
[2023-05-14] MEDS: IRON SUCROSE COMPLEX 200 MG in 0.9 % SODIUM CHLORIDE 100 ML 220 MG IV (10:31)
[2023-05-14 10:46] VITALS: BP 154/72; PULSE 71; RESP 18; TEMP 36.8; O2SAT 96
[2023-05-14 11:20] VITALS: BP 158/82; PULSE 58; RESP 18
== END 2023-05-14 11:34 | disposition home or self-care (01) ==
LOC: INF 10:20
PROVIDERS: PCP Internal Medicine Adolescent Medicine; Visit Provider Internal Medicine Medical Oncology
DX: D47.3 Essential (hemorrhagic) thrombocythemia (principal)
CPT/HCPCS: 96365; J1756

== ENCOUNTER 2023-07-20 11:40 | Outpatient (CLI) | payer MEDICARE, SELFPAY ==
[2023-07-20 12:06] LABS: Basophils # 0.2 K/mm3 (0-0.2); Basophils % 2.1 % (0.1-2.0); Eosinophils # 0.5 K/mm3 (0.0-0.4); Eosinophils % 6.7 % (0.1-12.0); Hematocrit 45.6 % (37.0-47.0); Hemoglobin 14.4 g/dL (12.2-16.2); Lymphocytes # 1.5 K/mm3 (0.7-4.5); Lymphocytes % 19.1 % (10-50); Mean Corpuscular HGB Conc 31.6 g/dL (31.8-35.4); Mean Corpuscular Volume 88.7 fl (81-99); Mean Platelet Volume 8.4 fl (7.4-10.4); Monocytes # 0.3 K/mm3 (0.1-1.0); Monocytes % 4.2 % (1.7-9.3); Neutrophils # 5.3 K/mm3 (1.8-7.8); Neutrophils % 67.9 % (37.0-80.0); Platelet Count 601 K/mm3 (142-424); Red Blood Count 5.15 M/mm3 (4.20-5.40); Red Cell Distribution Width 20.1 % (11.5-17.5); White Blood Count 7.9 K/mm3 (4.8-10.8)
[2023-07-20 12:52] LABS: Alanine Aminotransferase 13 U/L (12-78); Albumin Level 4.2 g/dl (3.5-5.0); Albumin/Globulin Ratio 1.8 (1.1-1.8); Alkaline Phosphatase 77 U/L (38-126); Anion Gap 9.7 mEq/L (5-15); Aspartate Amino Transferase 29 U/L (14-36); Bilirubin,Total 0.7 mg/dl (0.2-1.3); Blood Urea Nitrogen 15 mg/dl (7-17); Calcium 9.2 mg/dl (8.4-10.2); Carbon Dioxide 28 mmol/L (22.0-30.0); Chloride 109 mmol/L (98-107); Estimated Glomerular Filt Rate 71 ml/min (>60); GFR (African American) 86 ML/MIN (>60); Globulin 2.4 g/dL (1.3-3.2); Glucose 95 mg/dl (74-100); Potassium 4.7 mmoL/L (3.5-5.1); Sodium 142 mmol/L (136-145); Total Protein,Serum 6.6 g/dl (6.3-8.2)
[2023-07-20 13:19] LABS: Iron 81 ug/dL (37-170)
[2023-07-20 13:28] LABS: Total Iron Binding Capacity 305 ug/dL (265-497)
[2023-07-20 13:56] LABS: Ferritin 34.9 ng/ml (11.1-264)
== END 2023-07-20 23:59 | disposition home or self-care (01) ==
LOC: LAB 11:41
PROVIDERS: PCP Internal Medicine Adolescent Medicine; Visit Provider Internal Medicine Medical Oncology
DX: D50.8 Other iron deficiency anemias; D75.839 Thrombocytosis, unspecified; Z79.899 Other long term (current) drug therapy
CPT/HCPCS: 36415; 80053; 82728; 83540; 83550; 85025

== ENCOUNTER 2023-08-21 14:20 | Outpatient (CLI) | payer MEDICARE, SELFPAY ==
[2023-08-21 14:49] LABS: Basophils # 0.1 K/mm3 (0-0.2); Basophils % 1.2 % (0.1-2.0); Eosinophils # 0.5 K/mm3 (0.0-0.4); Eosinophils % 4.5 % (0.1-12.0); Hemoglobin 14.8 g/dL (12.2-16.2); Lymphocytes # 1.2 K/mm3 (0.7-4.5); Lymphocytes % 11.8 % (10-50); Mean Corpuscular HGB Conc 31.6 g/dL (31.8-35.4); Mean Corpuscular Volume 91.8 fl (81-99); Mean Platelet Volume 8.7 fl (7.4-10.4); Monocytes # 0.5 K/mm3 (0.1-1.0); Monocytes % 4.6 % (1.7-9.3); Neutrophils # 7.8 K/mm3 (1.8-7.8); Neutrophils % 77.8 % (37.0-80.0); Platelet Count 599 K/mm3 (142-424); Red Blood Count 5.12 M/mm3 (4.20-5.40); Red Cell Distribution Width 18.5 % (11.5-17.5)
[2023-08-21 15:13] LABS: Alanine Aminotransferase 15 U/L (12-78); Albumin Level 4.4 g/dl (3.5-5.0); Albumin/Globulin Ratio 1.6 (1.1-1.8); Alkaline Phosphatase 61 U/L (38-126); Aspartate Amino Transferase 29 U/L (14-36); Bilirubin,Total 0.6 mg/dl (0.2-1.3); Blood Urea Nitrogen 13 mg/dl (7-17); Calcium 9.7 mg/dl (8.4-10.2); Carbon Dioxide 26 mmol/L (22.0-30.0); Chloride 106 mmol/L (98-107); Estimated Glomerular Filt Rate 71 ml/min (>60); GFR (African American) 86 ML/MIN (>60); Globulin 2.7 g/dL (1.3-3.2); Glucose 83 mg/dl (74-100); Sodium 142 mmol/L (136-145); Total Protein,Serum 7.1 g/dl (6.3-8.2)
== END 2023-08-21 23:59 | disposition home or self-care (01) ==
LOC: LAB 14:22
PROVIDERS: PCP Internal Medicine Adolescent Medicine; Visit Provider Internal Medicine Medical Oncology
DX: D47.3 Essential (hemorrhagic) thrombocythemia (principal)
CPT/HCPCS: 36415; 80053; 85025

== ENCOUNTER 2023-09-14 10:00 | Outpatient (RCR) | payer MEDICARE, SELFPAY | END 2023-09-14 11:20 | disposition home or self-care (01) | LOC: OT 10:00 | PROVIDERS: Visit Provider Internal Medicine Adolescent Medicine | DX: M25.511 Pain in right shoulder (principal) | CPT/HCPCS: 97010; 97014; 97035; 97140; 97165; 97530; G0283 ==

== ENCOUNTER 2023-10-14 20:29 | Emergency (ER) | payer MEDICARE, SELFPAY ==
[2023-10-14 21:14] VITALS: BP 200/105; BP 204/91; PULSE 65; PULSE 72; RESP 16; TEMP 36.8; O2SAT 100; O2SAT 97; BMI 25.2
--- NOTE | 2023-10-14 21:15 | HMH.EDGENADL ---
Discharge Plan Disposition Patient Disposition: Home, Self-Care Condition: Good Prescriptions Prescriptions: New methocarbamol 500 mg tablet 1,000 mg PO Q6H PRN (Reason: pain) Qty: 30 0RF lidocaine 5 % adhesive patch,medicated 1 patch topical DAILY PRN (Reason: pain) Qty: 30 0RF Rx Instructions: leave on most painful area for up to 12 hrs No Action ProAir HFA 90 mcg/actuation HFA aerosol inhaler 2 puff INHALATION Q4-6H PRN (Reason: allergies) fluticasone propion-salmeterol 250-50 mcg/dose blister with device 1 inh inhalation BID pantoprazole 40 mg tablet,delayed release (DR/EC) 40 mg PO DAILY 90 Days montelukast 10 mg tablet 10 mg PO DAILY 90 Days hydroxyurea 500 mg capsule 500 mg PO DIRECTED Patient Comments: TAKE ONE CAPSULE BY MOUTH EVERY DAY fluticasone propionate [Flonase Allergy Relief] 50 mcg/actuation spray,suspension 1 spray INTRANASAL BID Rx Instructions: administer into each nostril albuterol 90 mcg/actuation aerosol 90 mcg INHALATION NEEDED PRN (Reason: Breathing Problems) Referrals Follow up/Referrals: Kemar Shore MD [Primary Care Provider] - See instructions Activity Restrictions/Add. Instructions Additional Instructions/Restrictions: Please follow-up with your primary care provider. Please return to the emergency department if you develop any new or worsening symptoms or become concerned for your health. Please take Tylenol as needed for pain. Please use lidocaine patches and Robaxin as needed. Clinical Impressions Clinical Impression: Fall Acute hip pain Qualifiers: Laterality: right Qualified Code(s): M25.551 - Pain in right hip Print Language Print Language: [place] Island[place] Discharge ED Provider: Loki Hill [facility] Adult HPI <PEGGY Abarca - Last Filed: 10/14/23 23:02> General Chief complaint: Fall Stated complaint: AO 10-14-23 fell and hurt right back area Time Seen by Provider: 10/14/23 21:15 History of Present Illness HPI narrative: Patient presents for evaluation of a fall. Patient had an accidental fall on her deck landing on her right side. She was unable to get up under her own power. Patient recently had a hip replacement surgery. Patient states that she also hurts in her back but denies loss of consciousness striking her head etc. She reports that intermittently that her leg is going numb but does not have loss of motor. She has no saddle anesthesia. There is no tingling noted. Related Data Home Medications ?Medication ?Instructions ?Recorded ?Confirmed montelukast 10 mg tablet 10 mg PO DAILY allergies 90 days 06/03/18 07/24/23 pantoprazole 40 mg tablet,delayed 40 mg PO DAILY GERD 90 days 06/03/18 07/24/23 release albuterol sulfate 90 mcg/actuation 2 puff inhalation Q4-6H PRN 11/05/18 07/24/23 aerosol inhaler (ProAir HFA) allergies hydroxyurea 500 mg capsule 500 mg PO DIRECTED anemia 04/15/19 07/24/23 albuterol 90 mcg/actuation aerosol 90 mcg inhalation NEEDED PRN 04/17/19 07/24/23 inhaler Breathing Problems fluticasone propionate 50 1 spray intranasal BID allergies 04/17/19 07/24/23 mcg/actuation nasal spray,suspension (Flonase Allergy Relief) fluticasone 250 mcg-salmeterol 50 1 inh inhalation BID Breathing 01/05/22 07/24/23 mcg/dose blistr powdr for problems inhalation Previous Rx's ?Medication ?Instructions ?Recorded lidocaine 5 % topical patch 1 patch topical DAILY PRN pain #30 10/14/23 ea methocarbamol 500 mg tablet 1,000 mg (2 x 500 mg) PO Q6H PRN 10/14/23 pain #30 tabs Allergies Allergy/AdvReac Type Severity Reaction Status Date / Time No Known Allergies Allergy Verified 07/24/23 10:36 [facility] <PEGGY Abarca - Last Filed: 10/14/23 23:02> [facility] Disclaimer: The information contained in this section may have been updated after the patient was seen, as this information can be updated by other users. Medical History Lung disease HTN (hypertension), benign Asthma Thrombocytopenia Hyperlipidemia GERD (gastroesophageal reflux disease) Surgical History History of right hip replacement December 2022 Hx of tonsillectomy Family History Other Diabetes Heart attack Social History Smoking Status: Unknown if ever smoked alcohol intake: never substance use type: denies use current occupational status: retired Travel in the last 8 weeks: None household members: spouse housing: house caffeine: No <PEGGY Abarca - Last Filed: 10/14/23 23:02> ROS Obtained: Yes Systems reviewed as appropriate & no additional complaints except as documented Physical Exam <PEGGY Abarca - Last Filed: 10/14/23 23:02> General General appearance: alert and in no apparent distress Head Head exam: atraumatic and normal inspection Eye Eye exam: Present normal appearance, PERRL and EOMI ENT ENT exam: Present normal exam and normal oropharynx Neck Neck exam: Present normal inspection, full ROM and trachea midline; Absent tenderness or lymphadenopathy Chest Chest inspection: Present normal inspection and symmetric chest wall rise; Absent tenderness Respiratory Respiratory exam: Present normal lung sounds bilaterally Cardiovascular Cardiovascular exam: Present regular rate and normal rhythm Abdominal Exam Abdominal exam: Present soft and normal bowel sounds; Absent tenderness, guarding or rebound Extremities Exam Extremities exam: Present normal inspection; Absent full ROM (Patient has diminished range of motion of the right lower extremity due to pain at the hip and the remainder extremities are intact also to exam with full range of motion) or tenderness Back Exam Back exam: Present normal inspection and tenderness (Patient has midline tenderness at the lower end of the thoracic spine but no palpable bony deformities no abrasions contusions or Asians ecchymosis noted); Absent full ROM Neurological Exam Neurological exam: Present alert, oriented X3 and CN II-XII intact Psychiatric Psychiatric exam: Present normal affect and normal mood Skin Skin exam: Present warm, dry and normal color Medical Decision Making <PEGGY Abarca - Last Filed: 10/14/23 23:02> Medical Records Medical records reviewed: Yes I reviewed the patient's medical records. [place] Inquiry Pt receiving controlled substance: No Vital Signs: 10/14/23 21:14 10/14/23 21:14 10/14/23 21:30 Temperature 98.2 F Temperature Source Oral Pulse Rate 65 62 Pulse Rate [Right Brachial] 72 Respiratory Rate 16 Blood Pressure 204/91 H 167/86 H Blood Pressure [Right Arm] 200/105 H Blood Pressure Mean [Right Arm] 136 Blood Pressure Source [Right Arm] Automatic Cuff Blood Pressure Position [Right Arm] Sitting 02 Sat by Pulse Oximetry 97 100 96 Oxygen Delivery Method Room Air Lab Data Lab results reviewed: Yes I reviewed the patient's lab results. Orders (Tests/Meds): ED MEDICATIONS Discontinued Medications Generic Name Dose Route Start Last Admin Trade Name Roselyn PRN Reason Stop Dose Admin Acetaminophen 1,000 mg 10/14/23 21:27 10/14/23 21:34 Acetaminophen 1,000mg/100ml Vial IV 10/14/23 21:28 1,000 mg ONCE ONE Administration Ketorolac Tromethamine 15 mg 10/14/23 21:27 10/14/23 21:34 Ketorolac 30mg/Ml Vial IV 10/14/23 21:28 15 mg ONCE ONE Administration Oxycodone HCl 5 mg 10/14/23 21:24 10/14/23 21:35 Oxycodone 5mg Immediate Release Tablet PO 10/14/23 21:25 5 mg ONCE ONE Administration ORDERS Category Date Time Status CT bony pelvis Stat Cat Scan 10/14/23 21:[address] lumbar spine wo con Stat Cat Scan 10/14/23 21:[address] thoracic spine wo con Stat Cat Scan 10/14/23 21:26 Completed Hip XR right minimum 2 views [XR hip RT 2-3V w/pelvis] Exams 10/14/23 21:18 Completed Stat Medical Decision Narrative: In summary patient is a 68-year-old female who presents to the emergency department for evaluation of interest from a fall. Patient has a KEISHA on the same affected side patient is hemodynamically stable upon arrival, afebrile. Physical exam is remarkable for tenderness about the right hip and in the thoracic spine without any palpable bony deformity contusion abrasions or ecchymosis noted. Patient is neurovascular intact distally in all 4 extremities.. Differential diagnosis includes contusion versus muscle strain versus fracture etc. Initial workup will be conducted with plain film and CT scan. Initial interventions include Tylenol Toradol oxycodone. Initial workup pending at the time of handoff to Dr. Hill at 2300 hrs. <Loki Hill MD - Last Filed: 10/14/23 23:47> Vital Signs: 10/14/23 21:14 10/14/23 21:14 10/14/23 21:30 Temperature 98.2 F Temperature Source Oral Pulse Rate 65 62 Pulse Rate [Right Brachial] 72 Respiratory Rate 16 Blood Pressure 204/91 H 167/86 H Blood Pressure [Right Arm] 200/105 H Blood Pressure Mean [Right Arm] 136 Blood Pressure Source [Right Arm] Automatic Cuff Blood Pressure Position [Right Arm] Sitting 02 Sat by Pulse Oximetry 97 100 96 Oxygen Delivery Method Room Air Orders (Tests/Meds): ED MEDICATIONS Discontinued Medications Generic Name Dose Route Start Last Admin Trade Name Roselyn PRN Reason Stop Dose Admin Acetaminophen 1,000 mg 10/14/23 21:27 10/14/23 21:34 Acetaminophen 1,000mg/100ml Vial IV 10/14/23 21:28 1,000 mg ONCE ONE Administration Ketorolac Tromethamine 15 mg 10/14/23 21:27 10/14/23 21:34 Ketorolac 30mg/Ml Vial IV 10/14/23 21:28 15 mg ONCE ONE Administration Oxycodone HCl 5 mg 10/14/23 21:24 10/14/23 21:35 Oxycodone 5mg Immediate Release Tablet PO 10/14/23 21:25 5 mg ONCE ONE Administration ORDERS Category Date Time Status CT bony pelvis Stat Cat Scan 10/14/23 21:[address] lumbar spine wo con Stat Cat Scan 10/14/23 21:[address] thoracic spine wo con Stat Cat Scan 10/14/23 21:26 Completed Hip XR right minimum 2 views [XR hip RT 2-3V w/pelvis] Exams 10/14/23 21:18 Completed Stat Medical Decision Narrative: In summary patient is a 68-year-old female who presents to the emergency department for evaluation of interest from a fall. Patient has a KEISHA on the same affected side patient is hemodynamically stable upon arrival, afebrile. Physical exam is remarkable for tenderness about the right hip and in the thoracic spine without any palpable bony deformity contusion abrasions or ecchymosis noted. Patient is neurovascular intact distally in all 4 extremities.. Differential diagnosis includes contusion versus muscle strain versus fracture etc. Initial workup will be conducted with plain film and CT scan. Initial interventions include Tylenol Toradol oxycodone. Initial workup pending at the time of handoff to Dr. Hill at 2300 hrs. Liz ALEXANDER: I assumed care of the patient at the time of handoff from the prior provider. On reassessment patient reports some improvement in her pain. CT imaging independently reviewed by me and shows no evidence of acute fracture of the thoracic or lumbar spine, no evidence of acute pelvic fracture. Hardware appears stable on radiographs as well. These findings were communicated with patient. I also talked with her about her hypertension and instructed her to follow-up with her PCP. Patient discharged stable condition with instructions regarding symptomatic care and prescription for Robaxin and lidocaine patches. I was consulted by the SHAYLA, and we discussed the complexity of the problems being addressed. I approved the treatment and management plan for this patient?s care in the Emergency Department, thus performing a substantive portion of the medical decision making. Loki Hill MD Critical Care <PEGGY Abarca - Last Filed: 10/14/23 23:02> Critical Care Time Critical Care Time: No
--- NOTE | 2023-10-14 21:18 | XR_ITS ---
PROCEDURE INFORMATION: Exam: XR Right Hip Exam date and time: 10/14/2023 9:45 PM Age: 68 years old Clinical indication: Injury or trauma; Other: Fall hip pain; Prior surgery; Surgery date: 1-6 months; Surgery type: Right jessica TECHNIQUE: Imaging protocol: Radiologic exam of the right hip. Views: 2 or 3 views hip with pelvis when performed. COMPARISON: 1. CR XR HIP RT 2-3V W/PELVIS 07/17/2022 11:[address] BONY PELVIS 10/14/2023 9:47 PM FINDINGS: Bones/joints: No fracture or dislocation. Status post right total hip arthroplasty. No evidence of hardware loosening. Hardware appears to be in good position. Soft tissues: Unremarkable. IMPRESSION: No acute findings.
--- NOTE | 2023-10-14 21:26 | CT_ITS ---
PROCEDURE INFORMATION: Exam: CT Pelvis Without Contrast; Skeletal Exam date and time: 10/14/2023 9:47 PM Age: 68 years old Clinical indication: Injury or trauma; Fall; Prior surgery; Surgery date: 6+ months; Surgery type: Right jessica; Additional info: Trauma, critical injury suspected TECHNIQUE: Imaging protocol: Computed tomography of the pelvis without contrast. Exam focused on the skeleton. Radiation optimization: All CT scans at this facility use at least one of these dose optimization techniques: automated exposure control; mA and/or kV adjustment per patient size (includes targeted exams where dose is matched to clinical indication); or iterative reconstruction. COMPARISON: CT ABDOMEN PELVIS W CON 06/30/2020 12:07 AM FINDINGS: Intestine: Distal colonic diverticulosis. Visualized bowel loops are not dilated. Vasculature: Mild iliac artery atherosclerotic disease. Reproductive: Status post hysterectomy. Bones/joints: No fracture or dislocation. Status post right total hip arthroplasty. Hardware is in good position without features of loosening. Mild degenerative change of the left hip and bilateral sacroiliac joints. Moderate/severe L4-L5 and L5-S1 degenerative change. Small bone islands in the right iliac wing are unchanged. Soft tissues: Unremarkable. IMPRESSION: No fracture or dislocation.
--- NOTE | 2023-10-14 21:26 | CT_ITS ---
PROCEDURE INFORMATION: Exam: CT Lumbar Spine Without Contrast Exam date and time: 10/14/2023 9:44 PM Age: 68 years old Clinical indication: Injury or trauma; Fall; Additional info: Trauma, critical injury suspected TECHNIQUE: Imaging protocol: Computed tomography of the lumbar spine without contrast. Radiation optimization: All CT scans at this facility use at least one of these dose optimization techniques: automated exposure control; mA and/or kV adjustment per patient size (includes targeted exams where dose is matched to clinical indication); or iterative reconstruction. COMPARISON: CT THORACIC SPINE WO CON 10/14/2023 9:34 PM FINDINGS: Bones/joints: No lumbar spine fracture or acute listhesis. Lumbar spine levoscoliosis. Moderate L4-L5 and L5-S1 degenerative disc disease and moderate/severe bilateral facet arthropathy. Mild degenerative disc disease from T12-L1 through L3-L4. Moderate/severe bilateral facet arthropathy at L2-L3 and L3-L4. Slight retrolisthesis of L4 over L5. Soft tissues: Unremarkable. IMPRESSION: No lumbar spine fracture or acute listhesis.
--- NOTE | 2023-10-14 21:26 | CT_ITS ---
PROCEDURE INFORMATION: Exam: CT Thoracic Spine Without Contrast Exam date and time: 10/14/2023 9:34 PM Age: 68 years old Clinical indication: Injury or trauma; Fall; Additional info: Trauma, critical injury suspected TECHNIQUE: Imaging protocol: Computed tomography of the thoracic spine without contrast. Radiation optimization: All CT scans at this facility use at least one of these dose optimization techniques: automated exposure control; mA and/or kV adjustment per patient size (includes targeted exams where dose is matched to clinical indication); or iterative reconstruction. COMPARISON: CT ABDOMEN PELVIS W CON 06/30/2020 12:07 AM FINDINGS: Bones/joints: No thoracic spine fracture or listhesis. Impression exaggerated kyphosis. Mild dextroscoliosis. Mild multilevel degenerative disc disease. Soft tissues: Unremarkable. Lungs: Calcified granuloma in the right lower lobe. Bilateral lower lobe and lingular atelectasis. Heart: Trace pericardial effusion. Coronary arteries: Mild coronary artery calcification. Gallbladder and biliary ducts: Status post cholecystectomy. Other findings: Moderate-sized hiatal hernia. IMPRESSION: No thoracic spine fracture or listhesis.
[2023-10-14 21:30] VITALS: BP 167/86; PULSE 62; O2SAT 96
[2023-10-14] MEDS: ACETAMINOPHEN 1,000MG/100ML VIAL 1000 MG IV (21:34)
[2023-10-14] MEDS: KETOROLAC 30MG/ML VIAL 15 MG IV (21:34)
[2023-10-14] MEDS: OXYCODONE 5MG IMMEDIATE RELEASE TABLET 5 MG PO (21:35)
--- NOTE | 2023-10-14 21:40 | PC.NURSE ---
Patient to radiology.
[2023-10-14 23:52] VITALS: BP 155/88; PULSE 72; RESP 18; TEMP 36.8; O2SAT 99
== END 2023-10-14 23:53 | disposition home or self-care (01) ==
PROVIDERS: Emergency Provider Emergency Medicine; PCP Internal Medicine Adolescent Medicine
DX: M25.551 Pain in right hip (principal); M54.6 Pain in thoracic spine; I10 Essential (primary) hypertension; Z96.641 Presence of right artificial hip joint; W19.XXXA Unspecified fall, initial encounter
CPT/HCPCS: 72128; 72131; 72192; 73502; 96374; 96375; 99285; J0131; J1885

== ENCOUNTER 2023-10-22 12:00 | Outpatient (CLI) | payer MEDICARE, SELFPAY ==
[2023-10-22 12:34] LABS: Basophils # 0.2 K/mm3 (0-0.2); Basophils % 2.3 % (0.1-2.0); Eosinophils # 0.5 K/mm3 (0.0-0.4); Eosinophils % 5.2 % (0.1-12.0); Hematocrit 52.2 % (37.0-47.0); Hemoglobin 16.1 g/dL (12.2-16.2); Lymphocytes # 1.3 K/mm3 (0.7-4.5); Lymphocytes % 14.5 % (10-50); Mean Corpuscular HGB Conc 30.8 g/dL (31.8-35.4); Mean Corpuscular Hemoglobin 28.9 pg (27.0-31.2); Mean Corpuscular Volume 93.6 fl (81-99); Mean Platelet Volume 8.8 fl (7.4-10.4); Monocytes # 0.4 K/mm3 (0.1-1.0); Monocytes % 4.1 % (1.7-9.3); Neutrophils # 6.5 K/mm3 (1.8-7.8); Neutrophils % 73.9 % (37.0-80.0); Platelet Count 421 K/mm3 (142-424); Red Blood Count 5.58 M/mm3 (4.20-5.40); Red Cell Distribution Width 16.6 % (11.5-17.5); White Blood Count 8.8 K/mm3 (4.8-10.8)
[2023-10-22 13:00] LABS: Alanine Aminotransferase 16 U/L (12-78); Albumin Level 4.3 g/dl (3.5-5.0); Albumin/Globulin Ratio 1.5 (1.1-1.8); Alkaline Phosphatase 68 U/L (38-126); Anion Gap 12.3 mEq/L (5-15); Aspartate Amino Transferase 30 U/L (14-36); Bilirubin,Total 0.7 mg/dl (0.2-1.3); Blood Urea Nitrogen 15 mg/dl (7-17); Calcium 9.6 mg/dl (8.4-10.2); Carbon Dioxide 28 mmol/L (22.0-30.0); Chloride 106 mmol/L (98-107); Chol/HDL Ratio 3.9 (1-3.5); Cholesterol 218 mg/dl (140-200); Estimated Glomerular Filt Rate 62 ml/min (>60); GFR (African American) 75 ML/MIN (>60); Globulin 2.8 g/dL (1.3-3.2); Glucose 97 mg/dl (74-100); HDL Cholesterol 56 mg/dl (40-60); Potassium 4.3 mmoL/L (3.5-5.1); Sodium 142 mmol/L (136-145); Total Protein,Serum 7.1 g/dl (6.3-8.2); Triglycerides 109 mg/dl (30-150); VLDL Cholesterol 22 mg/dL (0-40)
[2023-10-22 13:11] LABS: Direct LDL Cholesterol 122.95 mg/dL (100-129)
[2023-10-22 13:16] LABS: 25-OH Vitamin D, Total 55.8 ng/mL (30-100)
[2023-10-22 15:48] LABS: Hemoglobin A1C 5.3 % (4.0-6.0)
== END 2023-10-22 23:59 | disposition home or self-care (01) ==
LOC: LAB 12:04
PROVIDERS: Internal Medicine Medical Oncology; PCP Internal Medicine Adolescent Medicine; Visit Provider Internal Medicine Adolescent Medicine
DX: Z79.899 Other long term (current) drug therapy (principal); E78.5 Hyperlipidemia, unspecified; E55.9 Vitamin D deficiency, unspecified; Z00.00 Encounter for general adult medical examination without abnormal findings; D47.3 Essential (hemorrhagic) thrombocythemia; D50.9 Iron deficiency anemia, unspecified
CPT/HCPCS: 36415; 80053; 80061; 82306; 83036; 85025

== ENCOUNTER 2024-04-21 14:03 | Outpatient (CLI) | payer MEDICARE, SELFPAY ==
[2024-04-21 14:37] LABS: Basophils # 0.2 K/mm3 (0-0.2); Basophils % 1.9 % (0.1-2.0); Eosinophils # 0.7 K/mm3 (0.0-0.4); Eosinophils % 6.7 % (0.1-12.0); Hematocrit 48.3 % (37.0-47.0); Hemoglobin 14.7 g/dL (12.2-16.2); Lymphocytes # 1.3 K/mm3 (0.7-4.5); Lymphocytes % 12.3 % (10-50); Mean Corpuscular HGB Conc 30.4 g/dL (31.8-35.4); Mean Corpuscular Hemoglobin 24.4 pg (27.0-31.2); Mean Corpuscular Volume 80.1 fl (81-99); Mean Platelet Volume 10.4 fl (7.4-10.4); Monocytes # 0.4 K/mm3 (0.1-1.0); Monocytes % 4.2 % (1.7-9.3); Neutrophils # 7.7 K/mm3 (1.8-7.8); Neutrophils % 74.5 % (37.0-80.0); Platelet Count 427 K/mm3 (142-424); Red Blood Count 6.03 M/mm3 (4.20-5.40); Red Cell Distribution Width 17.6 % (11.5-17.5); White Blood Count 10.4 K/mm3 (4.8-10.8)
[2024-04-21 14:58] LABS: Alanine Aminotransferase 17 U/L (12-78); Albumin Level 4.3 g/dl (3.5-5.0); Alkaline Phosphatase 72 U/L (38-126); Anion Gap 15.6 mEq/L (5-15); Aspartate Amino Transferase 31 U/L (14-36); Bilirubin,Total 0.7 mg/dl (0.2-1.3); Blood Urea Nitrogen 15 mg/dl (7-17); Calcium 9.2 mg/dl (8.4-10.2); Carbon Dioxide 24 mmol/L (22.0-30.0); Chloride 109 mmol/L (98-107); Estimated Glomerular Filt Rate 55 ml/min (>60); GFR (African American) 66 ML/MIN (>60); Globulin 2.1 g/dL (1.3-3.2); Glucose 106 mg/dl (74-100); Potassium 4.6 mmoL/L (3.5-5.1); Sodium 144 mmol/L (136-145); Total Protein,Serum 6.4 g/dl (6.3-8.2)
== END 2024-04-21 23:59 | disposition home or self-care (01) ==
LOC: LAB 14:06
PROVIDERS: PCP Internal Medicine Adolescent Medicine; Visit Provider Internal Medicine Medical Oncology
DX: D47.3 Essential (hemorrhagic) thrombocythemia (principal)
CPT/HCPCS: 36415; 80053; 85025

== ENCOUNTER 2024-07-10 11:00 | Outpatient (CLI) | payer MEDICARE, SELFPAY ==
[2024-07-10 11:26] LABS: Basophils # 0.3 K/mm3 (0-0.2); Basophils % 2.4 % (0.1-2.0); Eosinophils # 0.8 Kmm3 (0.0-0.4); Eosinophils % 6.8 % (0.1-12.0); Hemoglobin 14.9 g/dL (12.2-16.2); Lymphocytes # 1.3 K/mm3 (0.7-4.5); Lymphocytes % 11.4 % (10-50); Mean Corpuscular HGB Conc 29.8 g/dL (31.8-35.4); Mean Corpuscular Hemoglobin 24.2 pg (27.0-31.2); Mean Corpuscular Volume 81.3 fl (81-99); Mean Platelet Volume 9.7 fl (7.4-10.4); Monocytes # 0.4 K/mm3 (0.1-1.0); Monocytes % 3.5 % (1.7-9.3); Neutrophils # 8.7 K/mm3 (1.8-7.8); Neutrophils % 75.4 % (37.0-80.0); Nucleated Red Blood Cells # 0 10^3/uL; Nucleated Red Blood Cells % 0 %; Platelet Count 344 K/mm3 (142-424); Red Blood Count 6.15 M/mm3 (4.20-5.40); Red Cell Distribution Width 17.5 % (11.5-17.5); Red Cell Distribution Width-SD 48.5 fL; White Blood Count 11.5 K/mm3 (4.8-10.8)
[2024-07-10 11:47] LABS: Alanine Aminotransferase 13 U/L (12-78); Albumin Level 4.2 g/dl (3.5-5.0); Albumin/Globulin Ratio 1.7 (1.1-1.8); Alkaline Phosphatase 71 U/L (38-126); Anion Gap 11.3 mEq/L (5-15); Aspartate Amino Transferase 24 U/L (14-36); Bilirubin,Total 0.7 mg/dl (0.2-1.3); Blood Urea Nitrogen 7 mg/dl (7-17); Calcium 9.1 mg/dl (8.4-10.2); Carbon Dioxide 28 mmol/L (22.0-30.0); Chloride 108 mmol/L (98-107); Estimated Glomerular Filt Rate 82 ml/min (>60); GFR (African American) 100 ML/MIN (>60); Globulin 2.5 g/dL (1.3-3.2); Glucose 95 mg/dl (74-100); Potassium 4.3 mmoL/L (3.5-5.1); Sodium 143 mmol/L (136-145); Total Protein,Serum 6.7 g/dl (6.3-8.2)
[2024-07-10 12:19] LABS: Thyroid Stimulating Hormone 1.16 uIU/mL (0.465-4.68)
[2024-07-10 12:37] LABS: Vitamin B12 272 pg/mL (239-931)
[2024-07-10 12:59] LABS: Folate 6.23 ng/mL
[2024-07-11 14:20] LABS: Free Kappa Lt Chains 23.6 mg/L (3.3-19.4); Free Lambda Lt Chains 13.8 mg/L (5.7-26.3)
[2024-07-11 17:11] LABS: Alpha-1-Globulin 0.3 g/dL (0.0-0.4); Alpha-2-Globulin 0.6 g/dL (0.4-1.0); Protein, Total 6.9 g/dL (6.0-8.5)
[2024-07-14 17:28] LABS: Immunoglobulin A, Qn 260 mg/dL (64-422); Immunoglobulin G, Qn 910 mg/dL (586-1602); Immunoglobulin M, Qn 53 mg/dL (26-217)
[2024-07-15 11:58] LABS: PDF SCANNED IMAGE
== END 2024-07-10 23:59 | disposition home or self-care (01) ==
PROVIDERS: PCP Internal Medicine Adolescent Medicine; Visit Provider Internal Medicine Medical Oncology
DX: D50.9 Iron deficiency anemia, unspecified (principal); D69.6 Thrombocytopenia, unspecified
CPT/HCPCS: 36415; 80053; 82607; 82746; 82784; 83521; 84155; 84165; 84443; 85025; 86334

== ENCOUNTER 2024-10-23 09:05 | Outpatient (CLI) | payer MEDICARE, SELFPAY ==
--- OUTSIDE RECORDS SUMMARY | 2024-09-26 14:01 | XMS_ITS | Encounter Summary ---
Author Organization [facility] Address [address] [place] [address] Care Team Providers Care Service Officer Name Role Phone Kemar Shore MD Primary Care Provider [phone] Reason for Referral * Imaging (Routine) - Closed Specialty Diagnoses / Procedures Referred By Fadi garvin Referred To Contact Gastroenterology Diagnoses History of Valdovinos's esophagus Gastroesophageal reflux disease, unspecified whether esophagitis present Procedures EGD Mitra Golden APRN [address] [address] Phone: tel: fax: Referral ID Status Reason Start Date Expiration Date V isits Requested Visits Authorized [id number] Closed Specialty Services Required 09/02/2024 03/04/2026 1 1 Reason for Visit * Imaging (Routine) - Closed Specialty Diagnoses / Procedures Referred By Fadi garvin Referred To Contact Gastroenterology Diagnoses History of Valdovinos's esophagus Gastroesophageal reflux disease, unspecified whether esophagitis present Procedures EGD Mitra Golden APRN [address] [facility] [address] [place] [address] Phone: tel: fax: Referral ID Status Reason Start Date Expiration Date V isits Requested Visits Authorized [id number] Closed Specialty Services Required 09/02/2024 03/04/2026 1 1 Encounter Details Date Type Department Care Team (Late st Contact Info) Description 09/26/2024 2:01 PM EDT - 09/26/2024 11:59 PM EDT Hospital Encounter [facility] Endoscopy [address] [place] [address] Niraj Rivera MD [address] [facility] [address] [place] [address] Ángel Longoria, DO [address] [place] [address] Olive Schroeder, HAND WOOD SANDER [address] [place] [address] Jose Hayes RN History of Valdovinos's esophagus; Gastroesophageal reflux disease, unspecified whether esophagitis present Discharge Disposition: Home or Self Care Social History Tobacco Use Types Packs/Day Years Used Date Smoking Tobacco: Never Smokeless Tobacco: Never Alcohol Use Standard Drinks/Week Comments No 0 (1 standard drink = 0.6 oz pur e alcohol) Comments No Sex and Gender Information Value Date Recorded Sex Assigned at Not on file Legal Sex Female 8:40 PM EDT Gender Identity Not on file Sexual Orientation Not on file documented as of this encounter Last Filed Vital Signs Vital Sign Reading Time Taken Comments Blood Pressure 169/78 09/26/2024 5:15 PM EDT Pulse 64 09/26/2024 5:15 PM EDT Temperature 37.1 C (98.8 F) 09/26/2024 4:50 PM EDT Respiratory Rate 19 09/26/2024 5:15 PM EDT Oxygen Saturation 97% 09/26/2024 5:15 PM EDT Inhaled Oxygen Concentration - - Weight 73.3 kg (161 lb 9.6 oz) 09/26/2024 3:00 P M EDT Height 167.6 cm (5' 6 ) 09/26/2024 3:00 PM EDT Body Mass Index 26.08 09/26/2024 3:00 PM EDT documented in this encounter Medications at Time of Discharge albuterol 108 (90 Base) MCG/ACT inhaler 12/29/2020 Alpha Lipoic Acid 200 MG capsule Take 100 mg by mouth daily. azelastine (Astelin) 0.1 % nasal spray Administer 1 spray into each nostril 2 times a day. Use in each nostril as directed cholecalciferol (Vitamin D3) 50 MCG (2000 UT) tablet Take 1 tablet by mouth. fluticasone (Flonase) 50 MCG/ACT nasal spray 06/22/2020 fluticasone-salme terol (Advair Diskus) 100-50 MCG/DOSE diskus inhaler 07/09/2014 gabapentin (Neurontin) 300 MG capsule Take 1 capsule by mouth 3 times a day. hydroxyurea (Hydrea) 500 MG capsule Take 1 capsule (500 mg total) by mouth daily. 01/03/2021 levocetirizine (Xyzal) 5 MG tablet 02/22/2021 montelukast (Singulair) 10 MG tablet 12/29/2020 naproxen sodium (Aleve) 220 MG tablet Take 1 tablet by mouth daily. pantoprazole (Protonix) 40 MG EC tabletIndications :History of Valdovinos's esophagus,Gastroe sophageal reflux disease, unspecified whether esophagitis present TAKE 1 TABLET BY MOUTH TWICE DAILY DO NOT CRUSH, CHEW, OR SPILT 180 tablet 3 09/02/2024 Vitamin E 450 MG (1000 UT) capsule Take by mouth. documented as of this encounter Miscellaneous Notes * H&P - Mateo Wolf, - 09/26/2024 3:10 PM EDT Subjective History Of Present Illness Ann Marie Potter is a 69 y.o. female who is currently followed in our clinic for Valdovinos's Esophagus now s/p lap HHR with Toupet Fundop[place] [address] Rivera. She is due for her 3 year surveillance EGD. She denies any new complaints. Medical/Surgical/Social/Family History I have reviewed and updated the patient history. Travel History Relevant International Travel History: Travel Screening Question Response Have you been in contact with someone who was sick? No / Unsure Do you have any of the following new or worsening symptoms? None of these Have you traveled internationally or domestically in the last month? No Travel History Travel since 08/27/24 No documented travel since 08/27/24 Relevant Domestic Travel History: none Immunizations Reviewed Allergies Patient has no known allergies. Medications Current Medications[1] Objective 14 point review of systems was obtained and is negative except for as above in HPI. Physical Exam: GEN: no apparent distress, female HENT: atraumatic, normocephalic EYES: no scleral icterus, no visible conjunctival hemorrhage RESP: no respiratory distress, symmetric chest rise CV: appears well perfused, normal rate ABD: soft, non-tender, non-distended, MSK/EXT: no apparent deformities, strength/tone normal NEURO: alert and oriented, PSYCH: appropriate affect, mood congruent, interactive Last Recorded Vitals Blood pressure (!) 169/71, pulse 72, temperature 36.3 ??C (97.4 ??F), temperature source Temporal, resp. rate 13, height 1.676 m (5' 6 ), weight 73.3 kg (161 lb 9.6 oz), SpO2 100%. Results Review {Vanishing Link Review Results :[id number] I have reviewed the latest lab and imaging results. Assessment & Plan History of Valdovinos's esophagus Gastroesophageal reflux disease, unspecified whether esophagitis present 69F with history of barretts esophagus s/p laparoscopic HH and toupet fundoplication. Here for surveillance EGD. Risks, benefits, and alternatives of the procedure were discussed with the patient andthe patient was agreeable to proceed with the procedure. Consent obtained. EGD today. Mateo Wolf, General Surgery, PGY-2 Pager: [phone] [1] Current Outpatient Medications Medication Sig Dispense Refill Alpha Lipoic Acid 200 MG capsule Take 100 mg by mouth daily. azelastine (Astelin) 0.1 % nasal spray Administer 1 spray into each nostril 2 times a day. Use in each nostril as directed cholecalciferol (Vitamin D3) 50 MCG (2000 UT) tablet Take 1 tablet by mouth. fluticasone (Flonase) 50 MCG/ACT nasal spray fluticasone-salmeterol (Advair Diskus) 100-50 MCG/DOSE diskus inhaler gabapentin (Neurontin) 300 MG capsule Take 1 capsule by mouth 3 times a day. hydroxyurea (Hydrea) 500 MG capsule Take 1 capsule (500 mg total) by mouth daily. levocetirizine (Xyzal) 5 MG tablet montelukast (Singulair) 10 MG tablet naproxen sodium (Aleve) 220 MG tablet Take 1 tablet by mouth daily. pantoprazole (Protonix) 40 MG EC tablet TAKE 1 TABLET BY MOUTH TWICE DAILY DO NOT CRUSH, CHEW, OR SPILT 180 tablet 3 Vitamin E 450 MG (1000 UT) capsule Take by mouth. albuterol 108 (90 Base) MCG/ACT inhaler Current Facility-Administered Medications Medication Dose Route Frequency Provider Last Rate Last Admin lactated Ringer's infusion 75 mL/hr Intravenous Once Ángel Longoria, DO lidocaine (Xylocaine) 1 % injection 0.5 mL 0.5 mL Injection Once PRN Ángel Longoria, DO sodium chloride 0.9 % flush 10 mL 10 mL Intravenous q12h Ángel Longoria DO And sodium chloride 0.9 % flush 10 mL 10 mL Intravenous PRN Ángel Longoria, DO Cosigned by Niraj Rivera MD at 09/26/2024 4:02 PM EDT Associated attestation - Niraj Rivera MD - 09/26/2024 4:02 PM EDT I saw and evaluated the patient with the resident/fellow. I discussed the case with the resident/fellow and agree with the findings and plan as documented. * Farrah Domínguez RN - 09/26/2024 2:50 PM EDT Images from the original note were not included. [id number] Endoscopy Unit: Caring for Yourself after an Esophogastroduodenoscopy (EGD) What precautions do I need to take after my procedure? You will get a medicine that makes you sleep during treatment. It may affect you for the next 24 hours. ?? Do not drive or go home alone. Someone must be with you until you get home. ?? For 24 hours, do not make legal decisions, drive, or use dangerous equipment. ?? You may continue taking your home medicines, unless your doctor tells you otherwise. When can I eat or drink? You may eat your normal diet, unless otherwise told by your doctor. Start with a small amount of bland foods and add other foods as tolerated. Spicy or greasy foods may cause nausea. How active can I be? You should move around as you are able. Do your normal activities if you feel you can. Sexual activity is fine, unless your doctor tells you otherwise. How do I find out my biopsy results? If you had a biopsy, it may take 7-10 days for results. These will be available in the patient portal, [employer]. Or you can call the doctor who ordered your procedure. When should I call the doctor? Call 911 right away or go to the nearest emergency department if you have any of these: ?? Difficulty breathing ?? Severe pain in the throat ?? Severe pain in the chest or belly ?? Vomiting that does not go away ?? Fever of 101??F or higher ?? Redness or tenderness of the IV site that lasts longer than 48 hours ?? Any other symptoms that concern you These may be related to a complication and need medical attention. If you do not tell your doctor, the problem may get worse. Our contact information: For the Endoscopy Provider, call and ask for the Endoscopy Fellow on-call. documented in this encounter Plan of Treatment Not on file documented as of this encounter Goals Goal Patient Goal Type Associated Problems Recent Progress Patient-Stated? Author [employer] freedom Goal Care Plan Autogenerated Problem No Aurora Carlos documented as of this encounter Procedures Procedure Name Priority Date/Time Associated Diagnosis Comments EGD Routine 09/26/2024 4:44 PM EDT History of Valdovinos's esophagus Gastroesophageal reflux disease, unspecified whether esophagitis present SURGICAL PATHOLOGY EXAM Routine 09/26/2024 4:25 PM EDT History of Valdovinos's esophagus Gastroesophageal reflux disease, unspecified whether esophagitis present documented in this encounter Results * EGD (09/26/2024 4:44 PM EDT) Anatomical Region Laterality Modality Endoscopy Narrative 09/26/2024 4:51 PM EDT Table formatting from the original result was not included. Impression: Prior fundoplication with recurrent hiatal hernia Barretts esophagus Circumferential biopsies performed Multiple gastric polyps - largest polyps removed Post Procedure Diagnosis None Recommendations Await pathology results Follow up with me in clinic Indication History of Valdovinos's esophagus, Gastroesophageal reflux disease, unspecified whether esophagitis present Medications See anesthesia record for anesthesia administered medications. Staff Staff Role Mateo Wolf DO Resident - Assisting Ángel Longoria DO Anesthesiologist Jose Hayes, DAVID Endo Nurse Brock Quispe Endo Property Insurance Inspector Niraj Rivera MD Proceduralist Olive Schroeder, GENE HAND WOOD SANDER Preprocedure A history and physical has been performed, and patient medication allergies have been reviewed. The patient's tolerance of previous anesthesia has been reviewed. The risks and benefits of the procedure and the sedation options and risks were discussed with the patient. All questions were answered and informed consent obtained. Details of the Procedure The patient underwent monitored anesthesia care, which was administered by an anesthesia professional. The patient's blood pressure, heart rate, level of consciousness, oxygen saturation and respirations were monitored throughout the procedure. The scope was introduced through the mouth and advanced to the second part of the duodenum. Retroflexion was performed in the cardia. The patient experienced no blood loss. The procedure was not difficult. The patient tolerated the procedure well. There were no apparent adverse events. Attestation I was present for the entire procedure Specimens ID Type Source Tests Collected by Time A : gatric polyps bx Tissue Stomach SURGICAL PATHOLOGY EXAM Niraj Rivera MD 09/26/2024 1625 B : 30cm Tissue Esophagus SURGICAL PATHOLOGY EXAM Niraj Rivera MD 09/26/2024 1634 C : 28cm Tissue Esophagus SURGICAL PATHOLOGY EXAM Niraj Rivera MD 09/26/2024 1636 D : 26cm Tissue Esophagus SURGICAL PATHOLOGY EXAM Niraj Rivera MD 09/26/2024 1639 Findings The upper third of the esophagus and middle third of the esophagus appeared normal. Valdovinos's esophagus observed with no associated lesion without using a distal attachment cap. The diaphragmatic impression was 30 cm from the incisors, Z-line was 26 cm from the incisors and the top of gastric folds was 30 cm from the incisors. The most proximal island was 26 cm from the incisors; performed 12 four-quadrant cold forceps biopsies every 2 cm for dysplasia screening Multiple sessile polyps measuring 5-9 mm in the stomach; performed cold snare removal The duodenum appeared normal. Previous anti-reflux procedure Herniation of both GE junction and stomach (type III hiatal hernia) without Arron lesions present Surgical material in the esophagus *Due to technical difficulties, unable to attach photos to report, will be available in media tab when images transfer. Mitra Golden APRN GI PROCEDURE ORDERABLES Final Result * Surgical Pathology Exam (09/26/2024 4:25 PM EDT) Case Report Surgical Pathology Case: [id number] Authorizing Provider: Niraj Rivera MD Collected: 09/26/2024 1625 Ordering Location: [facility] S Endoscopy Received: 09/29/2024 0607 Pathologist: Waylon Lomax MD Specimens: A) - Stomach, gatric polyps bx B) - Esophagus, 30cm C) - Esophagus, 28cm D) - Esophagus, 26cm 09/30/2024 11:33 AM EDT [facility] Final Diagnosis A. STOMACH, POLYPS, BIOPSY: - MULTIPLE FRAGMENTS OF FUNDIC GLAND POLYP B. ESOPHAGUS, 30CM, BIOPSY: - SQUAMOCOLUMNAR MUCOSA WITH INTESTINAL METAPLASIA (VALDOVINOS ESOPHAGUS) - NEGATIVE FOR DYSPLASIA C. ESOPHAGUS, 28CM, BIOPSY: - COLUMNAR MUCOSA WITH MIXED INFLAMMATION - NEGATIVE FOR INTESTINAL METAPLASIA OR DYSPLASIA D. ESOPHAGUS, 26CM, BIOPSY: - PEMA ESOPHAGITIS - SQUAMOCOLUMNAR MUCOSA WITH NO EVIDENCE OF INTESTINAL METAPLASIA OR DYSPLASIA 09/30/2024 11:33 AM EDT [facility] at 1133 EDT Clinical Information Valdovinos's Esophagus now s/p lap HHR with Toupet Fundoplication [place] [address] Rivera. She is due for her 3 year surveillance EGD. She denies any new complaints. Prior fundoplication with recurrent hiatal hernia Barretts esophagus Circumferential biopsies performed Multiple gastric polyps - largest polyps removed 09/30/2024 11:33 AM EDT [facility] Gross Description A. GATRIC POLYPS BX Received in formalin labeled gastric polyps biopsy , are multiple white-mackey soft tissue fragments that range from 0.1-0.7 cm in greatest dimension. Entirely submitted in cassettes A1 to A4. Cold Time: <1m Steffi B Pettey B. 30CM Received in formalin labeled 3 0 cm, Esophagus , are 3 white-mackey soft tissue fragments that range from 0.1-0.4 cm in greatest dimension. Entirely submitted in cassette B1. Cold Time: <1m Steffi B Pettey C. 28CM Received in formalin labeled 2 8 cm, esophagus , are 4 white-mackey soft tissue fragments that range from 0.1-0.3 cm in greatest dimension. Entirely submitted in cassette C1. Cold Time: <1m Steffi B Pettey D. 26CM Received in formalin labeled 2 6 cm, esophagus , are 4 white-mackey soft tissue fragments that range from 0.2-0.3 cm in greatest dimension. Entirely submitted in cassette D1. Cold Time: <1m Steffi B Pettey 09/30/2024 11:33 AM EDT [facility] Note: A resident was involved in the service. I attest I examined the relevant preparations for the specimens and confirmed the diagnosis or interpretation. 09/30/2024 11:33 AM EDT [facility] Tissue Stomach structure / Unknown 09/26/2024 4:25 PM EDT 09/29/2024 6:07 AM EDT Tissue specimen (specimen) Esophageal structure / Unknown 09/26/2024 4:34 PM EDT 09/29/2024 6:07 AM EDT Tissue specimen (specimen) Esophageal structure / Unknown 09/26/2024 4:36 PM EDT 09/29/2024 6:07 AM EDT Tissue specimen (specimen) Esophageal structure / Unknown 09/26/2024 4:39 PM EDT 09/29/2024 6:07 AM EDT us Niraj Rivera MD LAB PATHOLOGY ORDERABLES Final R esult [facility] [address] [place] [address] documented in this encounter Visit Diagnoses Diagnosis History of Valdovinos's esophagus Gastroesophageal reflux disease, unspecified whether esophagitis present documented in this encounter Additional Health Concerns Active Problems Noted Date Diagnosed Date Autogenerated Problem 09/02/2024 documented as of this encounter Care Teams Service Officer Relationship Specialty Start Date End Date Kemar Shore MD [address] [place], [place] [address] PCP - General 07/30/20 documented as of this encounter
--- OUTSIDE RECORDS SUMMARY | 2024-09-26 16:14 | XMS_ITS | Encounter Summary ---
Author Organization Healthcare Address [address] [place] [address] Care Team Providers Care Traffic Analyst Name Role Phone Kemar Shore MD Primary Care Provider Encounter Details Date Type Department Care Team ([facility] st Contact Info) Description 09/26/2024 4:14 PM EDT Anesthesia Event [facility] [address] [place] [id number] Ángel Longoria DO [address] [place] [address] Anesthesia Record Procedure Summary Procedure Name Responsible Anesthesiologist Anesthesia Start Time Anesthesia Stop Time EGD Ángel Longoria DO 09/26/24 1614 09/26 1648 Events Date Time Event Comment 09/26/2024 1535 1614 In Room 1614 An Start The patient was reevaluated immediately before sedation and remains eligible for anesthesia plan. 1614 An Start Data 1619 An Induction The patient was reevaluated immediately before moderate or deep sedation use and before anesthesia induction. 1619 Anesthesia Ready 1620 Proc Start 1643 Proc Fin 1644 Out of Room 1645 an stop data 1648 Handoff to Receiving I compl eted my handoff to the receiving clinician during which we: 1. Identified the patient 2. Identified the responsible provider 3. Reviewed the pertinent medical history 4. Discussed the surgical course 5. Reviewed intra-op anesthesia management and issues during anesthesia 6. Set expectations for post-procedure period 7. Allowed opportunity for questions and acknowledgement of understanding. 1648 An Stop Meds Name Total lidocaine PF (Xylocaine-MPF) 2% 80 mg propofol (Diprivan) injection 10 mg/mL 6 00 mg lactated Ringer's infusion 450 mL * Agents No agents on file. * Blood No blood administrations on file. Lines, Drains, and Airways Type Details Placement Removal Peripheral IV Placement Date: 09/16 04/12; Placement Time: 1516; Catheter Size: 22 G; Orientation: Anterior, Right; Location: Forearm; Site Prep: Alcohol; Technique: Anatomical landmarks; Insertion Attempts: 1; Patient Tolerance: Tolerated well; Removal Date: 09/26/24; Removal Time: 171809/26/241516 by Farrah Vargas RN 09/26/241718 by Toney Nowak RN documented in this encounter Social History Tobacco Use Types Packs/Day Years [...] on file documented as of this encounter Miscellaneous Notes * Anesthesia Postprocedure Evaluation - Olive Schroeder CRNA - 09/26/2024 4:52 PM EDT Patient: Ann Marie Potter Anesthesia Type: general Vitals Value Taken Time BP 85/47 09/26/24 16:52 Temp 98.5 09/26/24 16:52 Pulse 78 09/26/24 16:52 Resp 20 09/26/24 16:52 SpO2 96 09/26/24 16:52 Anesthesia Post Evaluation Patient location during evaluation: PACU Patient participation: complete - patient cannot participate Level of consciousness: sedated Pain management: adequate (pain score 0-3) Airway patency: natural airway Cardiovascular status: acceptable and hemodynamically stable Respiratory status: acceptable, nonlabored ventilation, spontaneous ventilation, unassisted and nasal cannula Hydration status: acceptable Nausea/Vomiting: No No notable events documented. * Anesthesia Preprocedure Evaluation - Ángel Longoria DO - 09/26/2024 12:52 PM EDT No anesthesia staff entered. Patient: Ann Marie Potter HPI Ann Marie Potter is a 69 y.o. female who presents for EGD. 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 Pt reports prior anesthetics without complications, did report delayed emergence with one. Denies any active cardiopulmonary symptoms, nausea or indigestion. NPO to solids >8 hours, clears >2 hours. Procedure Information Date/Time: 09/26/24 1510 Scheduled providers: Niraj Rivera MD; Ángel Longoria DO; Olive Schroeder CRNA; Jose Hayes RN Procedure: EGD Location: [facility] Relevant Problems GI (+) Gastroesophageal reflux disease with esophagitis Pulmonary (+) Mild asthma Other (+) Blood dyscrasia syndrome ALLERGIES Allergies[1] NPO STATUS Past Medical History[2] AIRWAY HISTORY Airway Detailed Review Displaying the 20 most recent records Date Difficult Airway Blade Size ETT Size C-L Class Final Type Intubation Method 04/08/21 No MEDICATIONS Outpatient Current Outpatient Medications Medication Instructions albuterol 108 (90 Base) MCG/ACT inhaler No dose, route, or frequency recorded. cholecalciferol (VITAMIN D-3) 2,000 Units, Oral fluticasone (Flonase) 50 MCG/ACT nasal spray No dose, route, or frequency recorded. fluticasone-salmeterol (Advair Diskus) 100-50 MCG/DOSE diskus inhaler No dose, route, or frequency recorded. hydroxyurea (HYDREA) 500 mg, Oral, Daily levocetirizine (Xyzal) 5 MG tablet No dose, route, or frequency recorded. montelukast (Singulair) 10 MG tablet No dose, route, or frequency recorded. pantoprazole (Protonix) 40 MG EC tablet TAKE 1 TABLET BY MOUTH TWICE DAILY DO NOT CRUSH, CHEW, OR SPILT VITAMIN A PO Take by mouth. Vitamin E 450 MG (1000 UT) capsule Oral Scheduled Current Scheduled Medications[3] PRNs Current PRN Medications[4] SURGICAL HX: Surgical History[5] SOCIAL HX: Social History[6] OBJECTIVE DATA LABS No results found for: WBC , HGB , HCT , MCV , PLT No results found for: CALCIUM , BUN , CREATININE , BCR , NA , K , CL , CO2 , AG , CA Type and Screen No results found for: ABO No results found for: HGBA1C No results found for: PGLU , GLUCOSE ABG No results found for: PHART , QBX8GMS , PO2ART , SO2ART , BEART , JBI9VOU , HCTART , SODIUMART , POTASSIUMART , POCTCL , POCGLU , IONCALART , LACTATE No results found for: PH , PCO2 , PO2 , I6TTLFKH , BASEEXC , HCTSYR , KSYR , CLSYR , GLUSYR , CAION , LACTATE ECHO No echocardiogram results found for the past 12 months PFTs No results found for: KBO4OYB , DKI5SAPK , ZJC1JZF , FVCPRED BP Readings from Last 5 Encounters: 04/08/21 159/90 03/02/21 177/85 Physical Exam Airway Mallampati: III Mouth opening: normal TM distance: >3 FB Neck ROM: full Cardiovascular Rhythm: regular Rate: normal Dental - normal exam Pulmonary Breath sounds clear to auscultation Neurological Skin Musculoskeletal Extremities Anesthesia Plan ASA 2 Plan was reviewed with: CLINICAL REVIEW NURSE Anesthesia technique(s) discussed with the patient/family: general Anesthesia plan agreed upon was: general Anesthetic plan and risks discussed with patient. Use of blood products discussed with patient who consented to blood products. 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 Barretts esophagus Personal history of other diseases of the digestive system History of hiatal hernia Personal history of other diseases of the musculoskeletal system and connective tissue Personal history of arthritis Personal history of other diseases of the respiratory system Personal history of asthma [3] [4] [5] Past Surgical History: Procedure Laterality Date DILATION AND CURETTAGE OF UTERUS N/A Dilation And Curettage from [facility] ESOPHAGOGASTRODUODENOSCOPY HERNIA REPAIR N/A Hernia Repair from [facility] OTHER SURGICAL HISTORY N/A Esophagoscopy With Biopsy from [facility] OTHER SURGICAL HISTORY N/A Exploratory Laparotomy from [facility] PARAESOPHAGEAL HERNIA REPAIR N/A Repair Of Paraesophageal Hiatus Hernia from [facility] TONSILLECTOMY N/A Tonsillectomy from [facility] TOTAL ABDOMINAL HYSTERECTOMY N/A Total Abdominal Hysterectomy from [facility] [6] Social History Tobacco Use Smoking status: Never Smokeless tobacco: Never Substance Use Topics Alcohol use: No Drug use: Never Comment: Drug use: No drug use documented in this encounter Plan of Treatment Not on file documented as of this encounter Goals Goal Patient Goal Type Associated Problems Recent Progress Patient-Stated? Author Autogenera freedom Goal Care Plan Autogenerated Problem No Aurora Carlos documented as of this encounter Visit Diagnoses Not on filedocumented in this encounter Administered Medications Inactive Administered Medications - up to 3 most recent administrations Medication Order MAR Action Action Date Dose Rate Site lactated Ringer's infusion 75 mL/hr, Intravenous, Once, 1 dose, On Sun09/26/24 at 1545, Routine New Bag 09/26/2024 4:14 PM EDT lidocaine PF (Xylocaine) 2 % injection Intravenous, As needed, Starting on Sun09/26/24 at 1619, Until Sun09/26/24 at 1651, Routine, Anesthesia Intraprocedure Given 09/26/2024 4:19 PM EDT 80 mg propofol (Diprivan) injection Intravenous, As needed, Starting on Sun09/26/24 at 1619, Until Sun09/26/24 at 1651, Routine, Anesthesia Intraprocedure Given 09/26/2024 4:41 PM EDT 50 mg Given 09/26/2024 4:37 PM EDT 50 mg Given 09/26/2024 4:34 PM EDT 100 mg documented in this encounter Additional Health Concerns Active Problems Noted Date Diagnosed Date Autogenerated Problem 09/02/2024 documented as of this encounter Care Teams Traffic Analyst Relationship Specialty Start Date End Date Kemar Shore MD [address] [place] [id number] PCP - General 07/30/20 documented as of this encounter
--- OUTSIDE RECORDS SUMMARY | 2024-10-23 09:10 | XMS_ITS | Clinical Summary ---
Author Organization Healthcare Address [address] [place] [address] Care Team Providers Care Boom Man Name Role Phone Kemar Shore MD Primary Care Provider Allergies No known active allergies Medications hydroxyurea (Hydrea) 500 MG capsule Take 1 capsule (500 mg total) by mouth daily. 1 Active montelukast (Singulair) 10 MG tablet 1 Active levocetirizine (Xyzal) 5 MG tablet 1 Active fluticasone-meredith meterol (Advair Diskus) 100-50 MCG/DOSE diskus inhaler 5 Active albuterol 108 (90 Base) MCG/ACT inhaler 1 Active fluticasone (Flonase) 50 MCG/ACT nasal spray 1 Active cholecalciferol (Vitamin D3) 50 MCG (2000 UT) tablet Take 1 tablet by mouth. Active Vitamin E 450 MG (1000 UT) capsule Take by mouth. Activ e pantoprazole (Protonix) 40 MG EC tabletIndicatio ns:History of Valdovinos's esophagus,Gastr oesophageal reflux disease, unspecified whether esophagitis present TAKE 1 TABLET BY MOUTH TWICE DAILY DO NOT CRUSH, CHEW, OR SPILT 180 tablet 3 5 Active azelastine (Astelin) 0.1 % nasal spray Administer 1 spray into each nostril 2 times a day. Use in each nostril as directed Active gabapentin (Neurontin) 300 MG capsule Take 1 capsule by mouth 3 times a day. Active Alpha Lipoic Acid 200 MG capsule Take 100 mg by mouth daily. Active naproxen sodium (Aleve) 220 MG tablet Take 1 tablet by mouth daily. Active VITAMIN A PO Take by mouth. 025 Discontinu ed(Per Patient Report) Active Problems Problem Noted Date Diagnosed Date Blood dyscrasia syndrome 04/08/2021 Gastroesophageal reflux disease with esophagitis 04/08/2021 Mild asthma 04/08/2021 Encounters Date Type Department Care Team Description 09/26/2024 4:14 PM EDT Anesthesia Event [facility] [address] [place] [address] Ángel Longoria DO 09/26/2024 2:01 PM EDT - 09/26/2024 11:59 PM EDT Hospital Encounter [facility] [address] [place] [phone] Niraj Rivera MD Cauthen, Benton R, DO Sparks, Starr N, CRNA Jovero, Bonnabille, RN History of Valdovinos's esophagus; Gastroesophageal reflux disease, unspecified whether esophagitis present Discharge Disposition: Home or Self Care 09/26/2024 Travel 09/19/2024 Travel 09/18/2024 Telephone [facility] General Surgery [address] [place] [address] Nisha Hunter, DAVID 09/02/2024 Refill [facility] General Surgery [address], [address] [place] [address] Nisha Hunter, RN History of Valdovinos's esophagus; Gastroesophageal reflux disease, unspecified whether esophagitis present 08/25/2024 Refill [facility] General Surgery [address], [address] [place] [address] Mitra Golden APRN History of Valdovinos's esophagus; Gastroesophageal reflux disease, unspecified whether esophagitis present from Last 3 Months Family History Medical History Relation Name Comments Diabetes Mother Relation Name Status Comments Mother Social History Tobacco Use Types Packs/Day Years Used Date Smoking Tobacco: Never Smokeless Tobacco: Never Alcohol Use Standard Drinks/Week Comments No 0 (1 standard drink = 0.6 oz pur e alcohol) Comments No Sex and Gender Information Value Date Recorded Sex Assigned at Not on file Legal Sex Female 8:40 PM EDT Gender Identity Not on file Sexual Orientation Not on file Last Filed Vital Signs Vital Sign Reading [...] Mass Index 26.08 09/26/2024 3:00 PM EDT Plan of Treatment Health Maintenance Due Date Last Done Comments [facility]-Bone Density Scan 1955 [facility]-Depression Screening 1953 [facility]-Hepatitis C Screening 1953 [facility]-Medicare Annual Wellness (AWV) 1953 [facility]-Infant/Child/Adol SDOH Screenings 1955 [id number] Vaccine (#1) 1958 [facility]-Obesity Intervention 1959 [facility]- SDOH Screenings 1971 [facility]-Adult SDOH Screenings 1971 [facility]-Zoster Vaccines (1 of 2) 1972 [facility]-DTaP,Tdap,and Td Vaccine s (1 - Tdap) 05/28/1996 05/27/1996 CT Colonography 1998 Colonoscopy 1998 [facility]-DNA 1998 FIT 1998 FOBT 1998 Sigmoidoscopy 1998 [facility]-Colorectal Cancer Screening 1998 [facility]-Breast Cancer Screening 2003 [facility]-RSV Vaccine: 60+ Years o r (1 - Risk 60-74 years 1-dose series) 2013 [facility]-Pneumococcal Vaccine: 50 + Years (2 of 2 - PCV) 01/10/2018 01/10/2017, 04/26/2006 [facility]-Influenza Vaccine (#1) 2024 HPV Vaccines Aged Out No longer eligi ble based on patient's age to complete this topic [facility]-HIB Vaccines Aged Out No longer e ligible based on patient's age to complete this topic [facility]-Hepatitis A Vaccines Aged Out No longer eligible based on patient's age to complete this topic [facility]-IPV Vaccines Aged Out No longer e ligible based on patient's age to complete this topic [facility]-Rotavirus Vaccines Aged Out No lo nger eligible based on patient's age to complete this topic Goals Goal Patient Goal Type Associated Problems Recent Progress Patient-Stated? Author Autogenera freedom Goal Care Plan Autogenerated Problem No Aurora Carlos Procedures Procedure Name Priority Date/Time Associated Diagnosis Comments EGD Routine 09/26/2024 4:44 PM EDT History of Valdovinos's esophagus Gastroesophageal reflux disease, unspecified whether esophagitis present SURGICAL PATHOLOGY EXAM Routine 09/26/2024 4:25 PM EDT History of Valdovinos's esophagus Gastroesophageal reflux disease, unspecified whether esophagitis present from Last 3 Months Results * EGD (09/26/2024 4:44 PM EDT) [...] - Assisting Ángel Longoria DO Anesthesiologist Jose Hayes RN Endo Nurse Brock Quispe Endo Automotive Teacher Niraj Rivera MD Proceduralist Olive Schroeder, GENE ELECTRIC MOTOR REPAIRER Preprocedure A history and physical has been [...] 30cm Tissue Esophagus SURGICAL PATHOLOGY EXAM Niraj Rviera MD 09/26/2024 1634 C : 28cm Tissue [...] PM EDT) Case Report Surgical Pathology Case: [id number] Authorizing Provider: Niraj Rivera MD Collected: 09/26/2024 1625 Ordering Location: [facility] Endoscopy Received: 09/29/2024 0607 Pathologist: Waylon Lomax MD Specimens: A) - Stomach, gatric polyps bx B) - Esophagus, 30cm C) - Esophagus, 28cm D) - Esophagus, 26cm 09/30/2024 11:33 AM EDT [facility] Final Diagnosis A. STOMACH, POLYPS, BIOPSY: [...] METAPLASIA OR DYSPLASIA 09/30/2024 11:33 AM EDT [facility] at 1133 EDT Clinical Information Valdovinos's Esophagus now s/p lap HHR with Toupet Fundoplication [place] [address] Rivera. She is due for her 3 year surveillance EGD. She denies any new complaints. Prior fundoplication with recurrent hiatal hernia Barretts esophagus Circumferential biopsies performed Multiple gastric polyps - largest polyps removed 09/30/2024 11:33 AM EDT [facility] Gross Description A. GATRIC POLYPS BX [...] Steffi B Pettey 09/30/2024 11:33 AM EDT [facility] Note: A resident was involved in the service. I attest I examined the relevant preparations for the specimens and confirmed the diagnosis or interpretation. 09/30/2024 11:33 AM EDT [facility] Tissue Stomach structure / Unknown 09/26/2024 4:25 PM EDT 09/29/2024 6:07 AM EDT Tissue specimen (specimen) Esophageal structure / Unknown 09/26/2024 4:34 PM EDT 09/29/2024 6:07 AM EDT Tissue specimen (specimen) Esophageal structure / Unknown 09/26/2024 4:36 PM EDT 09/29/2024 6:07 AM EDT Tissue specimen (specimen) Esophageal structure / Unknown 09/26/2024 4:39 PM EDT 09/29/2024 6:07 AM EDT Niraj Rivera MD LAB PATHOLOGY ORDERABLES Final R esult [facility] [address] [place] [address] from Last 3 Months Additional Health Concerns Active Problems Noted Date Diagnosed Date Autogenerated Problem 09/02/[address] [place] [address] MEDICARE Care Teams Boom Man Relationship Specialty Start Date End Date Kemar Shore MD [address] [place], [place] [id number] PCP - General 07/30/20
--- OUTSIDE RECORDS SUMMARY | 2024-10-23 09:10 | XMS_ITS | Encounter Summary ---
Author Organization Healthcare Address [address] [place] [address] Care Team Providers Care Traffic Signal Mechanic Name Role Phone Kemar Shore MD Primary Care Provider Encounter Details Date Type Department Care Team (Latest Contact Info) Description 09/26/2024 Travel Social History Tobacco Use Types Packs/Day Years [...] on file documented as of this encounter Plan of Treatment Not on file documented as of this encounter Goals Goal Patient Goal Type Associated Problems Recent Progress Patient-Stated? Author Autogene freedom Goal Care Plan Autogenerated Problem No Aurora Carlos documented as of this encounter Visit Diagnoses Not on filedocumented in this encounter Additional Health Concerns Active Problems Noted Date Diagnosed Date Autogenerated Problem 09/02/2024 documented as of this encounter Care Teams Traffic Signal Mechanic Relationship Specialty Start Date End Date Kemar Shore MD [address] [place] [id number] PCP - General 07/30/20 documented as of this encounter
--- OUTSIDE RECORDS SUMMARY | 2024-10-23 09:11 | XMS_ITS | Encounter Summary ---
Author Organization Healthcare Address [address] [place] [address] Care Team Providers Care Circulation Crew Leader Name Role Phone Kemar Shore MD Primary Care Provider [phone] Encounter Details Date Type Department Care Team (Late st Contact Info) Description 09/18/2024 Telephone [facility] General Surgery [address], [address] [place] [address] Nisha Hunter, RN [facility] Social History Tobacco Use Types Packs/Day Years Used Date Smoking Tobacco: Never Smokeless Tobacco: Never Alcohol Use Standard Drinks/Week Comments No 0 (1 standard drink = 0.6 oz pur e alcohol) Comments Unknown Sex and Gender Information Value Date Recorded Sex Assigned at Not on file Legal Sex Female 8:40 PM EDT Gender Identity Not on file Sexual Orientation Not on file documented as of this encounter Miscellaneous Notes * Telephone Encounter - Nisha Hunter, RN - 09/18/2024 1:48 PM EDT Called Ann Marie Potter to remind about EGD 09/26/24 and to review instructions. 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 No further questions. documented in this encounter Plan of Treatment Not on file documented as of this encounter Goals Goal Patient Goal Type Associated Problems Recent Progress Patient-Stated? Author Lashaun loja Goal Care Plan Autogenerated Problem No Aurora Carlos documented as of this encounter Visit Diagnoses Not on filedocumented in this encounter Additional Health Concerns Active Problems Noted Date Diagnosed Date Autogenerated Problem 09/02/2024 documented as of this encounter Care Teams Circulation Crew Leader Relationship Specialty Start Date End Date Kemar Shore MD [address] [place] [id number] PCP - General 07/30/20 documented as of this encounter
--- OUTSIDE RECORDS SUMMARY | 2024-10-23 09:11 | XMS_ITS | Encounter Summary ---
Author Organization Healthcare Address [address] [place] [address] Care Team Providers Care Electric Motorman Name Role Phone Kemar Shore MD Primary Care Provider [phone] Reason for Visit * Reason Onset Date Comments Med Refill 09/02/2024 Encounter Details Date Type Department Care Team (Late st Contact Info) Description 09/02/2024 Refill [facility] General Surgery [address] [place] [address] Nisha Hunter, RN [facility] History of Reilly's esophagus; Gastroesophageal reflux disease, unspecified whether esophagitis present Social History Tobacco Use Types Packs/Day Years [...] Telephone Encounter - Nisha Hunter, RN - 09/02/2024 8:39 AM EDT Pt to be scheduled for EGD next month. Requests for refill of Protonix 40mg po BID. documented in this encounter Plan of Treatment Not on file documented as of this encounter Goals Goal Patient Goal Type Associated Problems Recent Progress Patient-Stated? Author Automiguel freedom Goal Care Plan Autogenerated Problem No Carlos, Aurora D documented as of this encounter Visit Diagnoses Diagnosis History of Reilly's esophagus Gastroesophageal reflux disease, unspecified whether esophagitis present documented in this encounter Additional Health Concerns Active Problems Noted Date Diagnosed Date Autogenerated Problem 09/02/2024 documented as of this encounter Care Teams Electric Motorman Relationship Specialty Start Date End Date Kemar Shore MD [address] [place] [id number] PCP - General 07/30/20 documented as of this encounter
--- OUTSIDE RECORDS SUMMARY | 2024-10-23 09:11 | XMS_ITS | Encounter Summary ---
Author Organization [facility] Address [address] [place] [address] Care Team Providers Care Surfacer Name Role Phone Kemar Shore MD Primary Care Provider [phone] Reason for Referral * Imaging (Routine) - Closed Specialty Diagnoses / Procedures Referred By Fadi gavrin Referred To Contact Gastroenterology Diagnoses History of Reilly's esophagus Gastroesophageal reflux disease, unspecified whether esophagitis present Procedures EGD Mitra Golden APRN [id number] [place] [address] Phone: tel: fax: Referral ID Status Reason Start Date Expiration Date V isits Requested Visits Authorized [id number] Closed Specialty Services Required 09/02/2024 03/04/2026 1 1 Reason for Visit * Reason Comments Med Refill Encounter Details Date Type Department Care Team (Late st Contact Info) Description 08/25/2024 Refill [facility] [address] [place] [address] Mitra Golden APRN [address] [facility] [address] [place] [address] History of Reilly's esophagus; Gastroesophageal reflux disease, [...] Miscellaneous Notes * Telephone Encounter - Nisha Hunter RN - 09/02/2024 8:25 AM EDT Called pt to discuss planning for upcoming EGD for Reilly's esophagus surveillance, most recent EGD was March 2021. Dr. Rivera advised to review pt medications prior to scheduling. Pt said she takesAleve and Vitamin E, which she is aware to hold for several days prior to EGD. Will arrange for herto get EGD late September and send refill for Protonix. documented in this encounter Plan of Treatment Not on file documented as of this encounter Results * EGD (09/26/2024 4:44 [...] with me in clinic Indication History of Reilly's esophagus, Gastroesophageal reflux disease, unspecified whether esophagitis present Medications See anesthesia record for anesthesia administered medications. Staff Staff Role Mateo Wolf DO Resident - Assisting Ángel Longoria DO Anesthesiologist Jose Hayes RN Endo Nurse Brock Quispe Endo Disability Insurance Claim Examiner Niraj Rivera MD Proceduralist Olive Schroeder, [employer] NURSE Preprocedure A history and physical has been [...] middle third of the esophagus appeared normal. Reilly's esophagus observed with no associated lesion without [...] Golden APRN GI PROCEDURE ORDERABLES Final Result documented in this encounter Visit Diagnoses Diagnosis History of Reilly's esophagus Gastroesophageal reflux disease, unspecified whether esophagitis present History of Reilly's esophagus Gastroesophageal reflux disease, unspecified whether esophagitis present documented in this encounter Care Teams Surfacer Relationship Specialty Start Date End Date Kemar Shore MD [address] [place] [id number] PCP - General 07/30/20 documented as of this encounter
--- OUTSIDE RECORDS SUMMARY | 2024-10-23 09:11 | XMS_ITS | Encounter Summary ---
Author Organization [facility] Address [address] [place] [address] Care Team Providers Care Machine Maintenance Technician Name Role Phone Kemar Shore MD Primary Care Provider [phone] Reason for Visit * Reason Comments Med Refill Encounter Details Date Type Department Care Team (Late st Contact Info) Description 05/01/2024 Refill [facility] [address], [address] [place] [address] Niraj Rivera MD [address] [phone] History of Reilly's esophagus; Gastroesophageal reflux disease, [...] Telephone Encounter - Nisha Hunter RN - 05/01/2024 10:24 AM EST duplicate documented in this encounter Plan of Treatment Not on file documented as of this encounter Visit Diagnoses Diagnosis History of Reilly's esophagus Gastroesophageal reflux disease, unspecified whether esophagitis present documented in this encounter Care Teams Machine Maintenance Technician Relationship Specialty Start Date End Date Kemar Shore MD [address] [place] [id number] PCP - General 07/30/20 documented as of this encounter
--- OUTSIDE RECORDS SUMMARY | 2024-10-23 09:11 | XMS_ITS | Encounter Summary ---
Author Organization [facility] Address [address] [place] [address] Care Team Providers Care Rn Travel Name Role Phone Kemar Shore MD Primary Care Provider [phone] Encounter Details Date Type Department Care Team (Latest Contact Info) Description 09/19/2024 Travel Social History Tobacco Use Types Packs/Day [...] documented as of this encounter Care Teams Rn Travel Relationship Specialty Start Date End Date Kemar Shore MD [address] [place] [id number] PCP - General 07/30/20 documented as of this encounter
[2024-10-23 09:24] LABS: Hematocrit 43.9 % (37.0-47.0); Hemoglobin 12.8 g/dL (12.2-16.2); Immature Granulocytes % 0.6 %; Mean Corpuscular HGB Conc 29.2 g/dL (31.8-35.4); Mean Corpuscular Hemoglobin 22.8 pg (27.0-31.2); Mean Corpuscular Volume 78.1 fl (81-99); Nucleated Red Blood Cells % 0.2 %; Platelet Count 323 K/mm3 (142-424); Red Blood Count 5.62 M/mm3 (4.20-5.40); Red Cell Distribution Width-SD 48.0 fL; White Blood Count 12.9 K/mm3 (4.8-10.8)
[2024-10-23 10:09] LABS: Albumin Level 4.0 g/dl (3.5-5.0); Chloride 103 mmol/L (98-107); Potassium 3.7 mmoL/L (3.5-5.1); Sodium 135 mmol/L (136-145)
[2024-10-23 10:12] LABS: Alanine Aminotransferase 15 U/L (12-78); Albumin/Globulin Ratio 1.8 (1.1-1.8); Alkaline Phosphatase 79 U/L (38-126); Anion Gap 12.7 mEq/L (5-15); Aspartate Amino Transferase 27 U/L (14-36); Bilirubin,Total 0.8 mg/dl (0.2-1.3); Blood Urea Nitrogen 12 mg/dl (7-17); Carbon Dioxide 23 mmol/L (22.0-30.0); Creatinine,Serum 0.80 mg/dl (0.52-1.04); Estimated Glomerular Filt Rate 71 ml/min (>60); GFR (African American) 86 ML/MIN (>60); Globulin 2.2 g/dL (1.3-3.2); Total Protein,Serum 6.2 g/dl (6.3-8.2)
[2024-10-23 10:13] LABS: Calcium 9.0 mg/dl (8.4-10.2); Glucose 168 mg/dl (74-100)
== END 2024-10-23 23:59 | disposition home or self-care (01) ==
LOC: LAB 09:06
PROVIDERS: PCP Internal Medicine Adolescent Medicine; Visit Provider Internal Medicine Medical Oncology
DX: D47.3 Essential (hemorrhagic) thrombocythemia (principal)
CPT/HCPCS: 36415; 80053; 85025

== ENCOUNTER 2025-01-02 08:14 | Day surgery (SDC) | payer MEDICARE, SELFPAY ==
[2025-01-01 12:02] VITALS: BMI 25.8
[2025-01-02 08:31] VITALS: BP 153/84; PULSE 73; RESP 18; TEMP 36.6; O2SAT 100
--- NOTE | 2025-01-02 08:42 | P.HP_ITS ---
HPI HPI HPI: Patient presents for screening colonoscopy. She had a colonoscopy without Schulstad on 03/09/2005 which was normal. Colonoscopy with Dr. Benny Delgadillo on 03/20/2012 normal. She has had numerous upper endoscopies. Her insurance company ordered a fit test which was positive. Therefore scheduled for colonoscopy. [facility] Disclaimer: The information contained in this section may have been updated after the patient was seen, as this information can be updated by other users. Medical History Lung disease HTN (hypertension), benign Asthma Thrombocytopenia Hyperlipidemia GERD (gastroesophageal reflux disease) Surgical History History of right hip replacement December 2022 Hx of tonsillectomy Family History Other Diabetes Heart attack Social History Smoking Status: Unknown if ever smoked alcohol intake: never substance use type: denies use current occupational status: retired Travel in the last 8 weeks?: None household members: spouse housing: house caffeine: Yes Have you lived/traveled outside US in past 30 days?: No Contact w/someone who lives/traveled outside US past 30 days?: No Exposure to someone with infectious disease in past 14 days?: No Do you have a fever (greater than 100.4 F or 38 C)?: No Have you tested positive for COVID-19?: No Exposed to someone with COVID-19 in past 14 days?: No Do you have a sore throat?: No Do you have a cough?: No Do you have any weakness?: No Do you have any diarrhea?: No Are you experiencing any unusual bleeding?: No Do you have any muscle aches/pain?: No Do you have any abdominal pain?: No Are you experiencing loss of taste or smell?: No Other Medical History Have you received the Flu Vaccine for this season: Yes Have you received the Pneumonia Vaccine: Yes Meds Home Medications and Allergies Home Medications ?Medication ?Instructions ?Recorded ?Confirmed ?Type montelukast 10 mg tablet 10 mg PO DAILY allergies 90 days 06/03/18 01/02/25 History pantoprazole 40 mg tablet,delayed 40 mg PO DAILY GERD 90 days 06/03/18 01/02/25 History release albuterol sulfate 90 mcg/actuation 2 puff inhalation Q 4-6H PRN 11/05/18 01/02/25 History aerosol inhaler (ProAir HFA) allergies albuterol 90 mcg/actuation aerosol 90 mcg inhalation A S NEEDED PRN 04/17/19 01/01/25 History inhaler Breathing Problems fluticasone propionate 50 1 spray intranasal BID aller gies 04/17/19 01/02/25 History mcg/actuation nasal spray,suspension (Flonase Allergy Relief) hydroxyurea 500 mg capsule See Rx Instructions .Route 04/24/24 01/02/25 Rx .COMPLEX #90 caps levocetirizine 5 mg tablet 5 mg PO DAILY 10/23/2412/17 History sodium,potassium,mag sulfates 17.5 See Rx Instructions PO .COMPLEX 12/17/24 01/02/25 Rx gram-3.13 gram-1.6 gram oral soln #354 mL (Suprep Bowel Prep Kit) New Prescriptions to Start Prescriptions: Allergies Allergy/AdvReac Type Severity Reaction Status Date / Time No Known Allergies Allergy Verified 01/01/25 12:03 Exam Data for Last 24 hours Vital signs and Labs for Last 24 Hours: Temp Pulse Resp BP Pulse Ox O2 Del Method 97.9 F 73 18 153/84 H 100 Room Air 01/02/25 08:31 01/02/25 08:31 01/02/25 08:31 01/02/25 08:31 01/02/25 08:31 01/02/25 08:31 I & O for Last 24 hours: Intake & Output 12/30/24 12/31/24 01/01/25 01/02/25 11:59 11:59 11:59 11:59 Weight 160 lb Constitutional Constitutional: no acute distress *Routine HEENT Exam Head: Present normocephalic Eye: Present EOMI and PERRL ENT: Present mucous membranes moist *Routine Neck Exam Neck: Present supple; Absent lymphadenopathy *Routine Respiratory Exam Respiratory: Present CTA bilaterally *Routine Cardiovascular Exam Cardiovascular: Present RRR *Routine Abdominal Exam Abdominal: Present soft and normoactive bowel sounds; Absent tenderness *Routine Rectal Exam Rectal:: deferred *Routine Genitalia Exam Genitalia:: deferred *Routine Extremities Exam Extremities: Absent cyanosis, clubbing or edema *Routine Skin Exam Skin: Present warm; Absent rash *Routine Neurological Exam Neurological: Present alert and oriented X3 Assessment and Plan *Assessment and plan (1) Positive FIT (fecal immunochemical test): Status: Acute Category: Medical Code(s): R19.5 - Other fecal abnormalities Plan Colonoscopy.
[2025-01-02 09:31] VITALS: BP 86/49; PULSE 73; RESP 14; TEMP 36.1; O2SAT 95
--- NOTE | 2025-01-02 09:31 | P.PCN_ITS ---
Procedure: Date: 01/02/25 Patient Date of :: 1955 Procedure Performed:: Total colonoscopy to ileocecal valve with polypectomy using biopsy forceps and colon biopsy Indications:: Patient presents for screening colonoscopy. She had a colonoscopy without Schulstad on 03/09/2005 which was normal. Colonoscopy with Dr. Benny Delgadillo on 03/20/2012 normal. She has had numerous upper endoscopies. Her insurance company ordered a fit test which was positive. Therefore scheduled for colonoscopy . Performing Provider:: John Sandoval MD . Referring Provider:: Kemar Shore MD . Sedation:: MAC sedation . Procedure:: Patient history was obtained and appropriate physical examination was performed. Patient's medications and allergies were reviewed. Informed consent was obtained after explaining the benefits, alternatives, and risks of the procedure including, but not limited to, bleeding, perforation, missed lesions, and adverse reaction to anesthesia medications. Patient was transported to endoscopy procedure room. Patient was connected to monitoring devices. Throughout the procedure the patient's blood pressure, pulse, and oxygen saturations were monitored continuously. Patient identifi cation and planned procedure were verified by the staff. Patient was positioned in lateral decubitus position. Digital anorectal exam was performed. Variable stiffness Olympus colonoscope was inserted and advanced under direct visualization to the cecum. Adequacy of the colonic preparation was noted. The colonoscope was then slowly withdrawn while carefully examining the color, texture, anatomy, and integrity of the mucosoa circumferentially. Within the rectum retroflexion was performed. Colonoscope was then withdrawn. Impression: Within the cecum there was a tiny polyp possible minuscule adenomatous polyp removed with cold biopsy forceps. In the ascending colon near the hepatic flexure there were several patchy areas of erythema with some focal mucosal necrosis possibly consistent with resolving colitis. Several biopsies were obtained. The sigmoid colon there was some sigmoid diverticulosis. . Findings:: Minuscule cecal polyp Patchy focal colitis near hepatic flexure Sigmoid diverticulosis . Recommendations:: Repeat colonoscopy pending pathology . Complications:: None immediately apparent Estimated blood obtained (mL): 2 Colonoscopy Component Colonoscopy Component Was a colonoscopy performed during today's procedure?: Yes Recommended follow up colonoscopy of at least 10 years?: No If no, follow up colonoscopy recommended in ___ years?: See above Reason for not recommending >/= 10 yr follow-up interval?: See above
[2025-01-02 09:41] VITALS: BP 86/52; PULSE 66; RESP 14; O2SAT 98
[2025-01-02 09:51] VITALS: BP 104/59; PULSE 65; RESP 16; O2SAT 97
[2025-01-02 10:01] VITALS: BP 126/67; PULSE 65; RESP 16; O2SAT 96
== END 2025-01-02 10:02 | disposition home or self-care (01) ==
PROVIDERS: PCP Internal Medicine Adolescent Medicine; Visit Provider Surgery
PROC: 0DJD8ZZ Inspection of Lower Intestinal Tract, Via Natural or Artificial Opening Endoscopic (ICD-10-PCS; principal; 2025-01-02 09:30)
DX: Z12.11 Encounter for screening for malignant neoplasm of colon (principal); D12.0 Benign neoplasm of cecum; K57.30 Diverticulosis of large intestine without perforation or abscess without bleeding; K52.9 Noninfective gastroenteritis and colitis, unspecified; R19.5 Other fecal abnormalities; J45.909 Unspecified asthma, uncomplicated; K21.9 Gastro-esophageal reflux disease without esophagitis; Z79.51 Long term (current) use of inhaled steroids; Z79.899 Other long term (current) drug therapy
CPT/HCPCS: 45380; 88305; J2003; J2704

== ENCOUNTER 2025-02-06 17:28 | Emergency (ER) | payer MEDICARE, SELFPAY ==
[2025-02-06 17:35] VITALS: BP 187/90; PULSE 83; PULSE 86; RESP 16; TEMP 36.9; O2SAT 97; BMI 25.8
--- OUTSIDE RECORDS SUMMARY | 2025-02-06 17:35 | XMS_ITS | Continuity of Care Document ---
Author Organization [facility] Address [address] [place] [address] Care Team Providers Care Field Director Name Role Phone ELIAS NEELY Referring Provider MARLENY RASCON Primary Care Provider Assessment Encounter Date Assessment Date Assessment LastModified by Organization Details LastModified Time 01/22/2025 01/22/2025 Follow up yearly for a FSE or sooner if any new or changing lesion [email or web address] Not available 01/22/2025 11:33:26 Plan of Treatment Reminders Order Date Submit Date Provider Last Modified By Organization Details Last Modified Time Details Appointments None record ed. Lab None record ed. Referral None record ed. Procedures None record ed. Surgeries None record ed. Imaging None record ed. Medication Orders None record ed. Patient TargetsNo targets recorded. Patient Instructions Encounter Date Encounter Id Patient Instructions Last Modified By Organization Details Last Modified Time 01/22/2025 [id number] Education: We discussed the potential diagnostic options, options for further evaluation and treatments, and the risks and benefits of each. [email or web address] Not available 01/22/2025 11:34:41 Reason for Referral None Reported. Problems Name Problem SNOMED Code Status Onset Date Resolution Date Notes Provider Name and Address Organization Details Recorded Time Neuropathy [id number] Active 025 ALEAH POOL MD [address] [place], [address], [facility] 10:07:55 Problem Notes None recorded. Procedures Surgical History Date Name Laterality Status Provider Name and Address Organization Details Recorded Time 01/23/20 25 Destruction BN Lesions completed KAROLINA MORENO, DARIA [address] [place], [address], [facility] 01/22/2025 13:27:29 hysterectomy completed Stephanie Maher [facility] 03/28/2024 13:28:41 Cholecystectomy completed Stephanie Maher [facility] 03/28/2024 13:33:39 Imaging Results None recorded. Procedure Notes None recorded. Medical Equipment None Reported. Allergies No known drug allergies Medications Name Sig Start Date Stop Date Status Note LastModified by Organization Details LastModified Time amoxicill in 500 mg capsule TAKE 1 CAPSULE BY MOUTH TWICE DAILY FOR 10 DAYS 01/22 completed Not Available Not Available Not Available methocarb dannie 500 mg tablet TAKE 2 TABLETS BY MOUTH EVERY 6 HOURS NEEDED FOR PAIN 01/22 completed Not Available Not Available Not Available hydroxyur ea 500 mg capsule TAKE ONE CAPSULE BY MOUTH EVERY DAY active Not Available Not Available No t Available fluticaso ne 250 mcg-salme terol 50 mcg/dose blistr powdr for inhalatio n INHALE 1 DOSE BY MOUTH TWICE DAILY active Not Available Not Available No t Available Prevacid 30 mg capsule,d elayed release Daily active Frequenc y: daily;Me dication Descript ion: lansopra zole; Dosage:1 ; Route:or al; refills: 5; Quantity :30 enteric coated capsule Not Available Not Available Not Available pantopraz ole 40 mg tablet,de layed release TAKE 1 TABLET BY MOUTH TWICE DAILY . DO NOT CRUSH OR CHEW OR SPLIT active Not Available Not Available No t Available lidocaine 5 % topical patch APPLY ONE PATCH TOPICALL Y TO CLEAN, DRY SKIN. LEAVE ON FOR UP TO 12 HOURS ON MOST PAINFUL AREA THEN REMOVE. MUST WAIT AT LEAST 12 HOURS BEFORE APPLYING PATCH(ES ) AGAIN. 01/22 completed Not Available Not Available Not Available gabapenti n 300 mg capsule TAKE 1 CAPSULE BY MOUTH THREE TIMES DAILY 01/22 completed Not Available Not Available Not Available monteluka st 10 mg tablet TAKE 1 TABLET BY MOUTH ONCE DAILY AT NIGHT FOR ALLERGIE S AND FOR ASTHMA active Not Available Not Available No t Available gabapenti n 100 mg capsule TAKE 1 CAPSULE BY MOUTH EVERY DAY AT BEDTIME 01/22 completed Not Available Not Available Not Available azelastin e 137 mcg (0.1 %) nasal spray USE 1 TO 2 SPRAY(S) IN EACH NOSTRIL TWICE DAILY NEEDED active Not Available Not Available No t Available albuterol sulfate HFA 90 mcg/actua tion aerosol inhaler INHALE 2 PUFFS BY MOUTH EVERY 4 HOURS NEEDED FOR COUGH OR SHORTNES S OF BREATH OR WHEEZING active Not Available Not Available No t Available fluticaso ne propionat e 50 mcg/actua tion nasal spray,jesús pension USE 1 SPRAY(S) IN EACH NOSTRIL TWICE DAILY active Not Available Not Available No t Available amoxicill in 875 mg-potass ium clavulana te 125 mg tablet TAKE 1 TABLET BY MOUTH EVERY 12 HOURS FOR 10 DAYS 01/22 completed Not Available Not Available Not Available Multivita mins Daily active Frequenc y: daily;Me dication Descript ion: multivit gupta; Dosage:1 ; Route:or al; refills: 3 Not Available Not Available Not Available Advair HFA 115 mcg-21 mcg/actua tion aerosol inhaler active Medicati on Descript ion: fluticas one-salm eterol; Route:in halation ; refills: 0 Not Available Not Available Not Available levocetir izine 5 mg tablet TAKE 1 TABLET BY MOUTH ONCE DAILY IN THE EVENING active Not Available Not Available No t Available Xiaflex 0.9 mg solution for injection 01/22 completed Not Available Not Available Not Available sodium,po tassium,m ag sulfates 17.5 gram-3.13 gram-1.6 gram oral soln DILUTE, DRINK FULL AMOUNT EARLY EVENING BEFORE AND NEXT MORNING AT LEAST 2 HRS BEFORE PROCEDUR E. FOLLOW WITH 960ML OF WATER BY MOUTH active Not Available Not Available No t Available Vitals None Recorded Social History None recorded. Functional Status None recorded. Mental Status None recorded. Family History Relationship Description Onset Age of this Age Resolved Age Notes LastModified by Organization Details LastModified Time Unspecified Relation Diabetes mellitus [email or web address] Not available 03/28 13:27:42 Unspecified Relation Epilepsy [email or web address] Not available 03/28 13:28:16 Medical History Condition Response Asthma Y Gynecological HistoryNo gynecological history recorded. Obstetrics History GPAL:G 0 P 0 0 0 0 Immunizations Vaccine Type Date Status Note Provider Nam e and Address Organization Details Recorded Time Td (adult), 2 Lf tetanus toxoid, preservative free, adsorbed 7 completed Not Available [facility] 01/22/2025 10:43:41 pneumococcal polysaccharide PPV23 7 completed Not Available [facility] 01/22/2025 10:43:41 pneumococcal polysaccharide PPV23 7 completed Not Available [facility] 01/22/2025 10:43:41 Past Encounters Encounter ID Performer Location Encounter Start Date Encounter Closed Date Diagnosis/Indication Diagnosis SNOMED-CT Code Diagnosis ICD10 Code Diagnosis IMO Codes Diagnosis Note [id number] KAROLINAJUAN MORENO APRN [facility] [address] [place] [address] 01/22/2025 10:42:19 01/22/2025 12:32:38 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 Sun protective clothing and daily UV protection with over the counter broad-spec trum SPF 30+ on exposed areas recommende d, as well as, regular self-skin exams. Patient was encouraged to return to the clinic with any new, changing, or symptomati c lesions. 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 sent lifelong - no changes per patientmea surement in chart for monitoring Follow up annual for FSE Dermatofibroma 429107873 D23.9 [id number] Benign appearance ; reassuranc e and education provided Health Concerns Section Related Observation LastModified by Organization Detai ls LastModified Time None Recorded Concern Status LastModified by Organization Details LastModified Time None Recorded Payers Encounter Date Sequence Insurance Name Policy Number Policy Jean Covered Member ID Jean Member ID Guarantor Name 01/22/2025 1 [employer] (MEDICARE REPLACEMENT/A DVANTAGE - PPO) Ann Marie Mercedez Potter [id number] Ann Marie Potter Notes Date Note Type Note Provider Name and Address Organization Details Recorded Time 01/22/2025 text/html ROS as noted in the HPI New patient Patient presents today for a couple of lesions Patient states she has a couple of lesions on her L shoulder that has been present years it does itch. Patient has a lesion on her R lower abdomen it has been present for several years no symptoms. Patient has a lesion on her L lateral thigh it has been present for several years it does itch. Denies any other new, changing, or bleeding lesions, or other rashes, feels well, and has no family history of melanoma. KAROLINA MORENO, CARE PROVIDER [address] [place], [address], [facility] 01/22/2025 13:32:22 OBGyn Episode No OBEpisode recorded.
--- OUTSIDE RECORDS SUMMARY | 2025-02-06 17:35 | XMS_ITS | Clinical Summary ---
Author Organization [facility] , [facility] Address [address] [place] [address] Phone Care Team Providers Care Estimating Engineer Name Role Phone ABIODUN ALEXANDER, MARLENY Unavailable [phone] Aicha ALEXANDER, Toney Deluca Unavailable [phone] Reason for Visit and Chief Complaint The Chief Complaint is: R THUMB PAIN Problems Includes: Problems addressed during this encounter and other active Problems All Visits Onset Date Resolved Date Provider Condition S tatus Soft Tissue Pain Foot Bilateral 02/06/2024 Tony Frey DPM Active Last Documented On 4 1:26PM ; [facility] Soft Tissue Pain Hand Base o f Thumb Bilateral 08/20/2023 Toney Holcomb MD Active Last Documented On 4 10:17AM ; [facility] Joint Pain Hip Right 07/26/2022 Curry Yeung Active Last Documented On 3 3:05PM ; [facility] Soft Tissue Pain Hand Unilaterally Right 01/17/2017 Toney Holcomb MD Active Last Documented On 7 1:20PM ; [facility] Plan of Treatment Patient screened for future fall risk: documentation of any fall with injury in past year. - Last Documented On 07/30/2024 4:28PM ; [facility] Fall Risk Assessment: This patient has been identified as a fall risk. Balance/gait along with postural blood pressure, vision and home fall hazards have been assessed. Medications have been reviewed, and recommendations made with regard to contributing factors for future falls. Plan of care: Consideration of vitamin D supplementation along with balance and strength training with consideration for formal physical therapy has been discussed with the patient. - Last Documented On 07/30/2024 4:28PM ; [facility], [facility] Follow up as needed - Last Documented On 07/30/2024 4:28PM ; [facility], [facility] Instructions to patient Lose weight Last Documented On 5 10:22AM ; [facility], [facility] Assessments Includes: Assessments from this encounter Findings - Overweight - Last Documented On 07/30/2024 4:28PM ; [facility], [facility] Instructions Includes: Instructions from this encounter Instructions to patient Lose weight Last Documented On 5 10:22AM ; [facility], [facility] Medical Equipment - Implanted Devices Includes: Current Devices No Medical Equipment Recorded Medications Includes: Medications discussed during this encounter and other current Medications Current Medications (continue as prescribed) Gabapentin 100 MG Oral Capsule 02/12/2024 Provider: Tony Frey DPNisha Diagnosis: 1 every bedtime Last Documented On 4 2:43PM By Dr. Frey ; [facility], [facility] Aleve 220 MG Oral Capsule 02/06/2024 Provider: Diagnosis: Last Documented On 4 1:27PM By Gabbie Brandon ; [facility], [facility] Advair Diskus 250-50 MCG/ACT Inhalation Aerosol Powder Breath Activated 02/06/2024 Provider: Diagnosis: Last Documented On 4 1:28PM By Gabbie Brandon ; [facility], [facility] Protonix 20 MG Oral Tablet Delayed Release 02/06/2024 Provider: Diagnosis: Last Documented On 4 1:32PM By Gabbie Brandon ; [facility], [facility] Xyzal Allergy 24HR 5 MG Oral Tablet 02/06/2024 Provi degn: Diagnosis: Last Documented On 4 1:32PM By Gabbie Brandon ; [facility], [facility] Methocarbamol 500 MG Oral Tablet 08/29/2023 Provider : MARLENY RASCON MD Diagnosis: Last Documented On 4 10:15AM By Lele Cardoza ; [facility], [facility] Xiaflex 0.9 MG Injection Solution Reconstituted 2023 Provider: Diagnosis: Last Documented On 4 10:15AM By Lele Cardoza ; [facility], [facility] Pantoprazole Sodium 40 MG Oral Tablet Delayed Release 05/18/2023 Provider: Diagnosis: Last Documented On 4 10:09AM By Concha Pretty ; [facility], [facility] Past Medications on file HYDROcodone-Acetaminophen 7. 5-325 MG Oral Tablet 05/20/2024 - 05/25/2024 Provider: Toney Holcomb MD Diagnosis: 1 q 6 hours prn pain Last Documented On 5 9:19AM By Dr. Holcomb ; [facility] Montelukast Sodium 10 MG Oral Tablet 02/06/2024 - 04/19 Provider: Diagnosis: Last Documented On 4 1:27PM By Gabbie Brandon ; [facility] Hydroxyurea 500 MG Oral Capsule 02/06/2024 - Provider: Diagnosis: Last Documented On 4 1:27PM By Gabbie Brandon ; [facility] Fluticasone Propionate 50 MC G/ACT Nasal Suspension 02/06/2024 - 05/06/2024 Provider: Diagnosis: Last Documented On 4 1:27PM By Gabbie Brandon ; [facility] Aspirin Adult Low Strength 8 1 MG Oral Tablet Delayed Release 01/12/2023 - 02/26/2023 Provider: Kvng Deras MD Diagnosis: twice a day Last Documented On 3 10:58AM By Kvng Deras ; [facility] Medications Administered Includes: Administered Medications from this encounter No Administered Medications Recorded Vital Signs Includes: Vital Signs from this encounter Vital Name 07/30/2024 10:22A Height (in) 66 Weight (lb) 160 Body Mass Index 25.8 Body Surface Area 1.8 Note: bh Last Documented: On 07/30/2024 10:22A M ; [facility] Results Includes: Results discussed during this encounter No Results Recorded For Specified Dates History of Present Illness Includes: History of Present Illness from this encounter ZANE Millan is a 69 year old female. - Allergy list reviewed - Problem list reviewed - Medication list reviewed - Review of medications documented Social History Description Last Updated Tobacco non-user 01/30/2023 Last Documented On 5 10:22AM ; [facility], [facility] No recent change in diet 01/30/2023 Last Documented On 5 10:22AM ; [facility], [facility] Not a current smoker. 01/30/2023 Last Documented On 5 10:22AM ; [facility], [facility] No tobacco use 01/17/2017 Last Documented On 5 10:22AM ; [facility], [facility] Smoking status : Never smoker 01/17/2017 Last Documented On 5 10:22AM ; [facility] Caffeine use 01/17/2017 Last Documented On 5 10:22AM ; [facility], [facility] Exercising regularly 01/17/2017 Last Documented On 5 10:22AM ; [facility], [facility] No recent change in diet 01/17/2017 Last Documented On 5 10:22AM ; [facility], [facility] Not a current smoker 01/17/2017 Last Documented On 5 10:22AM ; [facility], [facility] Not using alcohol 01/17/2017 Last Documented On 5 10:22AM ; [facility], [facility] Not using drugs 01/17/2017 Last Documented On 5 10:22AM ; [facility], [facility] Procedures and Surgical History Surgical History Last Updated History of total hip replacement 024 Last Documented On 5 10:22AM ; [facility], [facility] History of History of Gallbladder 2023 Last Documented On 5 10:22AM ; [facility], [facility] History of appendectomy 01/17/2017 Last Documented On 5 10:22AM ; [facility], [facility] History of hernia repair 01/17/2017 Last Documented On 5 10:22AM ; [facility], [facility] History of hysterectomy 01/17/2017 Last Documented On 5 10:22AM ; [facility], [facility] Medical History Includes: Medical History addressed during this encounter Description Last Updated Finger removal of cyst, Vari cose vein lasered, Blocked abdominal sx ~ ~anmeia ~acid reflux ~high platelets and mutated Orestes gene 02/06/2024 Last Documented On 5 10:22AM ; [facility], [facility] History of Anemia 02/06/2024 Last Documented On 5 10:22AM ; [facility], [facility] History of arthritis 02/06/2024 Last Documented On 5 10:22AM ; [facility], [facility] History of asthma 02/06/2024 Last Documented On 5 10:22AM ; [facility], [facility] History of Heartburn / Acid Reflux 02/05 Last Documented On 5 10:22AM ; [facility], [facility] History of History of Blood Transfusion 02/06/2024 Last Documented On 5 10:22AM ; [facility], [facility] A recent immunization for pneumococcal p neumonia 01/10/2017 01/17/2017 Last Documented On 5 10:22AM ; [facility], [facility] Arthritic joint problems 01/17/2017 Last Documented On 5 10:22AM ; [facility], [facility] Gallbladder disease 01/17/2017 Last Documented On 5 10:22AM ; [facility], [facility] Family History Includes: Family History addressed during this encounter Description Last Updated Diabetes mellitus 02/06/2024 Last Documented On 5 10:22AM ; [facility], [facility] Sororal history of diabetes mellitus 03/2016 Last Documented On 5 10:22AM ; [facility], [facility] Maternal history of diabetes mellitus Last Documented On 5 10:22AM ; [facility], [facility] Review of Systems Includes: Review of Systems from this encounter Systemic: Not feeling tired, no recent weight loss, and no recent weight gain. Head: No headache and no sinus pain. Eyes: No vision problems, no Cataracts, no Glasses/Contacts, and no Glaucoma. Otolaryngeal: No hearing loss and no tinnitus. Cardiovascular: No chest pain or discomfort, no palpitations, no Hypertension, and no High Cholesterol. Pulmonary: Daytime asthma symptoms and chronic cough. No wheezing. Gastrointestinal: No heartburn and no abdominal pain. No Indigestion, no Peptic Ulcer, no GI Stomach Bleed, no Ulcers, and no Acid Reflux. Endocrine: No hot flashes. Muscle weakness. No Diabetes, no Hypothyroid, and no Hyperthyroid. Hematologic: No easy bleeding, no tendency for easy bruising, and no Anemia. Musculoskeletal: Arthritis and lower back pain. No soft tissue swelling and no localized joint pain. Neurological: No dizziness, no convulsions, and no numbness. Psychological: No anxiety, no emotional lability, no depression, and no insomnia. Not crying for no reason. Skin: No dry skin. No Ulcers, no Scars, and no rash. Allergic and Immunologic: No complaint of seasonal allergic reaction. Mental Status Includes: Mental Status from this encounter Description No anxiety Functional Status Includes: Functional Status from this encounter No Functional Status Recorded Physical Exam Includes: Physical Exam from this encounter Allergies Includes: Active Allergies No Known Allergies Encounters Encounter Provider Location Date Check-In Time Check-Out Time Diagnosis Post Op Toney Holcomb MD [facility] 5 10:22AM 10:45AM Overweight Insurance Includes: Active Insurance Policies Plan Name Member ID Group # Subscriber Relationship Effect rene Dates 1 - [employer] [id number] Ann Marie Millan Self 03/19/19 24 - Unknown Clinical Notes Includes: Clinical Notes from this encounter * Progress note Date Encounter Last Documented by 07/30/2024 Post Op Last documented on 07/30/2024; 4:28 PM, Toney Holcomb MD; [facility], [facility] Active Problems & Conditions - Joint Pain in the Right Hip - Pain At Base of Both Thumbs - Pain in Both Feet - Pain in the Right Hand Only Chief Complaint The Chief Complaint is: R THUMB PAIN. Referred Here Referred by PCP. History of Present Illness Ann Marie Millan is a 69 year old female. - Allergy list reviewed - Problem list reviewed - Medication list reviewed - Review of medications documented Current Medication - Advair Diskus 250-50 MCG/ACT Inhalation Aerosol Powder Breath Activated 0 days, 0 refills - Aleve 220 MG Oral Capsule take as directed 0 days, 0 refills - Gabapentin 100 MG Oral Capsule 1 every bedtime, 30 days, 0 refills - Methocarbamol 500 MG Oral Tablet 5 days, 0 refills - Pantoprazole Sodium 40 MG Oral Tablet Delayed Release 90 days, 0 refills - Protonix 20 MG Oral Tablet Delayed Release take as directed 0 days, 0 refills - Xiaflex 0.9 MG Injection Solution Reconstituted 28 days, 0 refills - Xyzal Allergy 24HR 5 MG Oral Tablet take as directed 0 days, 0 refills Past Medical/Surgical History Reported: Medical: Gallbladder disease and joint problems arthritic. Immunization History: Recent immunization for pneumococcal pneumonia 01/10/2017. Diagnoses: Asthma Anemia History of Blood Transfusion Heartburn / Acid Reflux. Arthritis Finger removal of cyst, Varicose vein lasered, Blocked abdominal sx anmeia acid reflux high platelets and mutated Orestes gene. Surgical: - Appendectomy - Hernia repair - Hysterectomy - History of Gallbladder - Total hip replacement Social History Not a current smoker. Current diet: No recent change in diet. No recent change in diet. Behavioral: Tobacco non-user. Not a current smoker. Caffeine: Caffeine use. Tobacco use: No tobacco use and smoking status: Never smoker. Alcohol: Not using alcohol. Drug Use: Not using drugs. Habits: Exercising regularly. Allergies - No Known Allergies Family History - Diabetes mellitus Maternal: Diabetes mellitus Sororal: Diabetes mellitus Review Of Systems Systemic: Not feeling tired, no recent weight loss, and no recent weight gain. Head: No headache and no sinus pain. Eyes: No vision problems, no Cataracts, no Glasses/Contacts, and no Glaucoma. Otolaryngeal: No hearing loss and no tinnitus. Cardiovascular: No chest pain or discomfort, no palpitations, no Hypertension, and no High Cholesterol. Pulmonary: Daytime asthma symptoms and chronic cough. No wheezing. Gastrointestinal: No heartburn and no abdominal pain. No Indigestion, no Peptic Ulcer, no GI Stomach Bleed, no Ulcers, and no Acid Reflux. Endocrine: No hot flashes. Muscle weakness. No Diabetes, no Hypothyroid, and no Hyperthyroid. Hematologic: No easy bleeding, no tendency for easy bruising, and no Anemia. Musculoskeletal: Arthritis and lower back pain. No soft tissue swelling and no localized joint pain. Neurological: No dizziness, no convulsions, and no numbness. Psychological: No anxiety, no emotional lability, no depression, and no insomnia. Not crying for no reason. Skin: No dry skin. No Ulcers, no Scars, and no rash. Allergic and Immunologic: No complaint of seasonal allergic reaction. Physical Findings - Vitals taken 07/30/2024 10:22 am bh Height 66 in 59 - 78 Weight 160 lbs 95 - 175 Body Mass Index 25.8 kg/m2 Body Surface Area 1.8 m2 Patient has excellent range of motion of the scars are well healed. Assessment - Overweight Counseling/Education Tobacco non-user. use of tobacco assessment performed. - Lose weight Plan Patient screened for future fall risk: documentation of any fall with injury in past year. Fall Risk Assessment: This patient has been identified as a fall risk. Balance/gait along with postural blood pressure, vision and home fall hazards have been assessed. Medications have been reviewed, and recommendations made with regard to contributing factors for future falls. Plan of care: Consideration of vitamin D supplementation along with balance and strength training with consideration for formal physical therapy has been discussed with the patient. Follow up as needed Care Team - MARLENY RASCON MD - [employer] [employer] [facility] [employer] - Assess BMI satisfied 07/30/2024. - Assess Tobacco Use satisfied 07/30/2024. Notes This dictation was done with voice recognition software and may contain errors and omissions.
--- OUTSIDE RECORDS SUMMARY | 2025-02-06 17:36 | XMS_ITS | Data Portability ---
Author Organization [facility] Address [address] [place] [address] Care Team Providers Care Manager Action Name Role Phone ELIAS NEELY Referring Provider MARLENY RASCON Primary Care Provider [phone] Assessment Encounter Date Assessment Date Assessment LastModified by Organization Details LastModified Time 03/28/2024 03/28/2024 ASSESSMENT: Ms. Potter is a very pleasant 69-year-old female who presents to the office for evaluation of sharp, electric, spasming pain to her toes that is present only when she lays down to go to sleep and has been present for over a year. Her is with her and is a patient of Dr. Childress and he recommended that she present for evaluation. She reports working with a Dr. Neely at [facility] where she was told she had a nerve problem and that was what she shared with Dr. Childress when they were here last for her 's appointment. She reports when she goes to lay down at night, all of her toes are very sensitive to her, even the sheet on her feet is painful. She reports an electrified sensation into her toes and that at times she will have spasms more into her left foot. She also feels like she has thickening of the pads of both of her feet. This pain does not keep her awake all night and is not present at all if she is up moving around. She does not report any significant back pain or any radiating pain down her legs though she did previously have sciatica when she was , 42 years ago. He did start her on gabapentin 100 mg once a day that she did complete for a month, but reports she ran out of that medication a few weeks ago and did not appreciate any change with being on it or off of it. She does report she follows with hematology for essential thrombocythemia and is managed on medication, hydroxyurea, and she is currently not having issues with elevated platelets. She has no history of diabetes or alcoholism. She denies any bowel or bladder control issues. IMAGING: No new imaging available for review. She did have an EMG completed at [facility] on 02/12/2024. 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 No electrophysiologic evidence of lumbar sacral nerve root pathology was reported. Nurse practitioner visit PLAN: Will review this case with Dr. Childress next week and contact her with his recommendation I spoke with Ms. Potter and her at length that her EMG seems consistent with neuropathy, not radiculopathy, and I therefore would not want to put her through any unnecessary testing or workup of her lumbar spine. We did discuss she may need to be on a higher dose of gabapentin than 100 mg a day even if she does only take that at night. Her was not sure she would not need to have a repeat EMG/NCS as his was completed by Dr. Diez in the past. I will review her EMG results with Dr. Childress next week and we will contact her after speaking with him to determine what he would recommend moving forward. They both verbalized understanding of these instructions and are agreeable to this plan. They have no further questions or concerns at this time. They are satisfied with this plan of care. [email or web address] Not available 03/28/2024 14:34:40 06/30/2024 06/30/2024 ASSESSMENT: Ms. Potter is a 69-year-old female who returns to the office after last being seen March 28, 2024 with continued pain into her toes and feet that is worse when she is lying down. She is accompanied by her who is a patient of Dr. Childress's. She is still taking the gabapentin 600 mg at night as well as the alpha lipoic acid 600 mg in the morning. She does report that her symptoms are not as bad as they were but they are still there and frequently interrupting her sleep which is still when the symptoms are more significant. She is isolating these pains into her toes and her feet bilaterally. She is still managed on hydroxyurea for her essential thrombocytopenia by Dr. Patel. She denies any bowel or bladder control issues. IMAGING: No new imaging available for review Nurse practitioner visit PLAN: Lumbar MRI without contrast Will call our office after the MRI is complete Ms. Potter is going to move forward with a lumbar MRI without contrast to evaluate for any neural impingement that could be causing the symptoms into her feet. We did discuss that the medication she takes for essential thrombocytopenia, hydroxyurea, could unfortunately be causing some of the neuropathy symptoms she is experiencing into her feet. She is encouraged to talk with Dr. Patel the next time she has an appointment with him about these symptoms. She is going to increase her alpha lipoic acid to 1200 mg a day. We will move forward with a lumbar MRI without contrast to evaluate for any neural impingement that could be adding to the symptoms. She will contact our office after her MRI is complete for Dr. Childress to review these results to determine if she would be a candidate for injections or surgical interventions. She verbalized understanding of these instructions and is agreeable to this plan. She has no further questions or concerns at this time. She is satisfied with this plan of care. [email or web address] Not available 06/30/2024 15:22:38 01/22/2025 01/22/2025 Follow up yearly for a FSE or sooner if any new or changing lesion [email or web address] Not available 01/22/2025 11:33:26 Plan of Treatment [...] Modified By Organization Details Last Modified Time 06/30/2024 [id number] CATEGORY DESCRIPTION MINUTES Prepare to see the patient (e.g. review of tests) 5 Obtain/review separately obtained history 5 Perform medically appropriate exam/evaluation 5 Order medications, tests, or procedures 5 [employer]er/educate the patient/family/car egiver 5 Refer/communicate w/other healthcare professionals Document clinical information into health record 5 Non-billable independent interp of results Non-billable care coordination TOTAL TIME 30 72322 (15-29) 97009 (30-44) 25470 (45-59) 05336 (60-74) 00275 30505 (10-19) 60087 (20-29) 62463 (30-39) 03568 (40-54) [email or web address] Not available 06/30/2024 11:14:12 01/22/2025 [id number] Education: We discussed the potential diagnostic options, options for further evaluation and treatments, and the risks and benefits of each. [email or web address] Not available 01/22/2025 11:34:41 Reason for Referral None Reported. Results Created Date Observation Date Name Description Value Unit Range Abnormal Flag Note LastModifiedBy Organization Detail LastModifiedTime 04/07/1904/07/2024 nerve condu ction study /EMG (PROC ) No observ ation record ed. BARCODE Not Available 2024 10:34:54 07/08/1907/07/2024 MRI, lumba r spine , w/o contr ast [place] [facility] [address] [place] [address] Kimberlycherri t Name: ANN MARIE Harrischerri garvin : [birth year] Paticherri t Orderi ng Provid er: GABBY Garvin EXAM DATE: 2024 EXAM: MR LUMBAR W/O CONTRA ST HISTOR Y: 69-yea r-old female with chroni c low back pain. COMPAR JASIEL: None. FINDIN GS: There is dextro curvat ure of the thorac olumba r juncti on, and levocu rvatur e from L2 throug h L5. There is no focal sublux ation. There is no fractu re. There is mild anteri or margin al osteop hytic spurri ng. No pathol ogic lesion is identi fied in the lumbar spine. There are type II Modic change s at L5-S1 and L3-L4. The conus medull earnestine is normal in appear ance at the L1-L2 level. T10-T1 1 and T11-T1 2: There are minima l disc bulges . T12-L1 : This interv ertebr al disc is normal in appear ance. L1-L2: There is mild facet arthro aden. There is no centra l canal stenos is. There is no neural forami nal stenos is. L2-L3: There is a small protru zana adjace nt to the left neural forame n and mild facet arthro aden. There is no centra l canal stenos is. There is minima l left neural forami nal stenos is. L3-L4: There is mild facet arthro aden and a minima l disc bulge. There is no centra l canal stenos is. There is no neural forami nal stenos is. L4-L5: There is a small disc protru zana adjace nt to the right neural forame n and mild facet arthro aden. There is no centra l canal stenos is. There is mild right neural forami nal stenos is. L5-S1: There is a broad- based disc protru zana extend ing into the left neural forame n and mild facet arthro aden. There is no centra l canal stenos is. There is modera te/sev ere left and mild right neural forami nal stenos is. There is mild to modera te atroph y of the parasp inous muscul ature. IMPRES ZANA: 1. There is modera te/sev ere left neural forami nal narrow ing at L5-S1, and mild right neural forami nal narrow ing at L4-L5 and L5-S1. Interp reted By: Jean davis MD Electr onical ly Signed By: Jean davis MD on 025 3:55 PM [email or web address] [facility] [address], [address], 07/22/2024 09:29:36 Result Notes Documentation Provider Name and Address Organization Details Recorded Time Mri, Lumbar Spine, W/o Contrast : [address] [address] Patient Name: ANN MARIE POTTER Patient : 1955 Patient Ordering Provider: GABBY WASHINGTON EXAM DATE: 07/07/2024 EXAM: MR LUMBAR W/O CONTRAST HISTORY: 69-year-old female with chronic low back pain. COMPARISON: None. FINDINGS: There is dextrocurvature of the thoracolumbar junction, and levocurvature from L2 through L5. There is no focal subluxation. There is no fracture. There is mild anterior marginal osteophytic spurring. No pathologic lesion is identified in the lumbar spine. There are type II Modic changes at L5-S1 and L3-L4. The conus medullaris is normal in appearance at the L1-L2 level. T10-T11 and T11-T12: There are minimal disc bulges. T12-L1: This intervertebral disc is normal in appearance. L1-L2: There is mild facet arthropathy. There is no central canal stenosis. There is no neural foraminal stenosis. L2-L3: There is a small protrusion adjacent to the left neural foramen and mild facet arthropathy. There is no central canal stenosis. There is minimal left neural foraminal stenosis. L3-L4: There is mild facet arthropathy and a minimal disc bulge. There is no central canal stenosis. There is no neural foraminal stenosis. L4-L5: There is a small disc protrusion adjacent to the right neural foramen and mild facet arthropathy. There is no central canal stenosis. There is mild right neural foraminal stenosis. L5-S1: There is a broad-based disc protrusion extending into the left neural foramen and mild facet arthropathy. There is no central canal stenosis. There is moderate/severe left and mild right neural foraminal stenosis. There is mild to moderate atrophy of the paraspinous musculature. IMPRESSION: 1. There is moderate/severe left neural foraminal narrowing at L5-S1, and mild right neural foraminal narrowing at L4-L5 and L5-S1. Interpreted By: Baljinder Roach MD Y WASHINGTON, DARIA [address] [place], [address], [facility] 07/22/2024 09:29:36 Problems Name Problem SNOMED Code Status Onset Date Resolution Date Notes Provider Name and Address Organization Details Recorded Time Neuropathy 918710880 Active 025 ALEAH CHILDRESS MD [address] [place], [address], [facility] 10:07:55 Problem Notes None recorded. Procedures Surgical History Date Name Laterality Status Provider Name and Address Organization Details Recorded Time 01/23/20 25 Destruction BN Lesions completed KAROLINA MORENO, FIELD ORGANIZER [address] [place], [address], [facility] 01/22/2025 13:27:29 hysterectomy completed Stephanie Flanaganholz [facility] 03/28/2024 13:28:41 Cholecystectomy completed [facility] 03/28/2024 13:33:39 Imaging Results None [...] Available Not Available No t Available Vitals Date Recorded Body height Body mass index (BMI) Body weight Provider Name and Address Organization Details Last Updated DateTime 03/28/2024 167.64 cm 25.8 kg/m2 10568.78 g [facility] [place][note 2] 03/28/2024 14:07:36 Social History None recorded. Functional Status None [...] preservative free, adsorbed 7 completed Not Available [facility] 01/22/2025 10:43:41 pneumococcal polysaccharide PPV23 7 completed Not Available [facility] 01/22/2025 10:43:41 pneumococcal polysaccharide PPV23 7 completed Not Available [facility] 01/22/2025 10:43:41 Past Encounters Encounter ID Performer Location Encounter Start Date Encounter Closed Date Diagnosis/Indication Diagnosis SNOMED-CT Code Diagnosis ICD10 Code Diagnosis IMO Codes Diagnosis Note [id number] GABBY WASHINGTON APRN [facility] [address] [place] [address] 03/28/2024 12:47:51 03/29/2024 04:34:10 Neuropathy 782480430 G62.9 [id number] GABBY WASHINGTON APRN [facility] [address] [place] [address] 06/30/2024 10:15:49 07/01/2024 04:59:57 Paresthesia of foot 686201460 R20.2 Lumbar radiculopathy 128 175885 M54.16 [id number] KAROLINA MORENO APRN [facility] [address] [place] [address] 01/22/2025 10:42:19 01/22/2025 12:32:38 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 - no changes per patientmea surement in chart for monitoring Follow up annual for FSE Dermatofibroma 260590033 D23.9 54772 Benign appearance ; reassuranc e and education provided Health Concerns Section Related Observation LastModified by Organization Detai ls LastModified Time None Recorded Concern Status LastModified by Organization Details LastModified Time None Recorded Advance Directives Directive None Recorded Payers Insurance Date Sequence Insurance Name Policy Number Policy Jean Covered Member ID Jean Member ID Guarantor Name 02/04/2025 1 [employer] (MEDICARE REPLACEMENT/A DVANTAGE - PPO) Ann Marie Potter [id number] Ann Marie Potter Notes Date Note Type Note Provider Name and Address Organization Details Recorded Time 03/28/2024 text/html Ms. Potter is a 69-year-old female who presents to the office for evaluation of sharp, electric, spasming pain to her toes that is present only when she lays down to go to sleep and has been present for over a year. GABBY WASHINGTON APRN [address] [place], [address], [facility] 03/28/2024 14:35:16 06/30/2024 text/html ROS as noted in the HPI Ms. Potter is a 69-year-old female who returns to the office after last being seen March 28, 2024 with continued pain into her toes and feet that is worse when she is lying down. GABBY WASHINGTON APRN [address] [place], [address], [facility] 06/30/2024 15:22:48 01/22/2025 text/html ROS as noted in the [...] and has no family history of melanoma. KAORLINA MORENO, FIELD ORGANIZER [address] [place], [address], [facility] 01/22/2025 13:32:22 OBGyn Episode No OBEpisode recorded.
--- OUTSIDE RECORDS SUMMARY | 2025-02-06 17:36 | XMS_ITS | Clinical Summary ---
Author Organization [facility] Address [address] [place] [address] Phone Care Team Providers Care Asw Specialist Name Role Phone ABIODUN ALEXANDER, MARLENY Unavailable [phone] Toney Holcomb MD Unavailable [phone] Reason for Visit and Chief Complaint BRACE FITTING Problems Includes: Problems addressed during this encounter and other active Problems All Visits Onset Date Resolved Date Provider Condition S tatus Soft Tissue Pain Foot Bilateral 02/06/2024 Tony Frey DPM Active Last Documented On 4 1:26PM ; [facility] Soft Tissue Pain Hand Base o f Thumb Bilateral 08/20/2023 Toney Holcomb MD Active Last Documented On 4 10:17AM ; [facility] Joint Pain Hip Right 07/26/2022 Curry Yeung Active Last Documented On 3 3:05PM ; [facility] Soft Tissue Pain Hand Unilaterally Right 01/17/2017 Toney Holcomb MD Active Last Documented On 7 1:20PM ; [facility] Plan of Treatment No Plan of Treatment Recorded Assessments Includes: Assessments from this encounter No Assessments Recorded Medical Equipment - Implanted Devices Includes: Current Devices No Medical Equipment Recorded Medications Includes: Medications discussed during this encounter and other current Medications Current Medications (continue as prescribed) Gabapentin 100 MG Oral Capsule 02/12/2024 Provider: Tony Frey DPM Diagnosis: 1 every bedtime Last Documented On 4 2:43PM By Dr. Frey ; [facility] Aleve 220 MG Oral Capsule 02/06/2024 Provider: Diagnosis: Last Documented On 4 1:27PM By Gabbie Brandon ; [facility] Advair Diskus 250-50 MCG/ACT Inhalation Aerosol Powder Breath Activated 02/06/2024 Provider: Diagnosis: Last Documented On 4 1:28PM By Gabbie Brandon ; [facility] Protonix 20 MG Oral Tablet Delayed Release 02/06/2024 Provider: Diagnosis: Last Documented On 4 1:32PM By Gabbie Brandon ; [facility] Xyzal Allergy 24HR 5 MG Oral Tablet 02/06/2024 Provi deng: Diagnosis: Last Documented On 4 1:32PM By Gabbie Brandon ; [facility] Methocarbamol 500 MG Oral Tablet 08/29/2023 Provider : MARLENY RASCON MD Diagnosis: Last Documented On 4 10:15AM By Lele Cardoza ; [facility] Xiaflex 0.9 MG Injection Solution Reconstituted 2023 Provider: Diagnosis: Last Documented On 4 10:15AM By Lele Cardoza ; [facility] Pantoprazole Sodium 40 MG Oral Tablet Delayed Release 05/18/2023 Provider: Diagnosis: Last Documented On 4 10:09AM By Concha Pretty ; [facility] Medications Administered Includes: Administered Medications from this encounter No Administered Medications Recorded Results Includes: Results discussed during this encounter No Results Recorded For Specified Dates History of Present Illness Includes: History of Present Illness from this encounter No History of Present Illness Recorded Social History No Social History Recorded - Smoking Status Unknown Procedures and Surgical History Includes: Procedures from this encounter Procedures Code Diagnosis Performing Provider Service Location Service Date TKO Boxer Fracture Brace (LEFT) [id number] Unil primary osteoarth of first carpometacarp joint, l hand Toney Holcomb MD [facility] 07/09/2024 Last Documented On 5 9:51AM ; [facility] Medical History Includes: Medical History addressed during this encounter No Medical History Recorded Family History Includes: Family History addressed during this encounter No Family History Recorded Review of Systems Includes: Review of Systems from this encounter No Review of Systems Recorded Mental Status Includes: Mental Status from this encounter No Mental Status Recorded Functional Status Includes: Functional Status from this encounter No Functional Status Recorded Physical Exam Includes: Physical Exam from this encounter No Physical Exam Recorded Allergies Includes: Active Allergies No Known Allergies Encounters Encounter Provider Location Date Check-In Time Check-Out Time Diagnosis BRACE FITTING Toney Holcomb MD [facility] 07/09/2024 10:54AM 11:59PM Insurance Includes: Active Insurance Policies Plan Name Member ID Group # Subscriber Relationship Effect rene Dates 1 - [employer] [id number] Ann Marie Millan Self 03/19/19 24 - Unknown Clinical Notes Includes: Clinical Notes from this encounter No Clinical Notes Recorded
--- OUTSIDE RECORDS SUMMARY | 2025-02-06 17:36 | XMS_ITS | Clinical Summary ---
Author Organization [facility] , [facility] Address [address] [place] [address] Phone Care Team Providers Care Brew House Supervisor Name Role Phone ABIODUN ALEXANDER, MARLENY Unavailable [phone] Aicha ALEXANDER, Toney Deluca Unavailable [phone] Reason for Visit and Chief Complaint Post Op Problems Includes: Problems addressed during this encounter and other active Problems All Visits Onset Date Resolved Date Provider Condition S tatus Soft Tissue Pain Foot Bilateral 02/06/2024 Tony Frey DPM Active Last Documented On 4 1:26PM ; [facility], [facility] Soft Tissue Pain Hand Base o f Thumb Bilateral 08/20/2023 Toney Holcomb MD Active Last Documented On 4 10:17AM ; [facility], [facility] Joint Pain Hip Right 07/26/2022 Curry Yeung Active Last Documented On 3 3:05PM ; [facility], [facility] Soft Tissue Pain Hand Unilaterally Right 01/17/2017 Toney Holcomb MD Active Last Documented On 7 1:20PM ; [facility], [facility] Plan of Treatment - Patient screened for future fall risk: documentation of any fall with injury in past year - Last Documented On 06/05/2024 10:12AM ; [facility], [facility] Sutures removed. Thumb spica cast applied. Follow up in 2 weeks - Last Documented On 06/05/2024 10:12AM ; [facility], [facility] Fall Risk Assessment: This patient has [...] with the patient. - Last Documented On 06/05/2024 10:12AM ; [facility] Assessments Includes: Assessments from this encounter No Assessments Recorded Medical Equipment - Implanted Devices Includes: Current Devices No Medical Equipment Recorded Medications Includes: Medications discussed during this encounter and other current Medications Current Medications (continue as prescribed) Gabapentin 100 MG Oral Capsule 02/12/2024 Provider: Tony Frey DPM Diagnosis: 1 every bedtime Last Documented On 4 2:43PM By Dr. Frey ; [facility], [facility] Aleve 220 MG Oral Capsule 02/06/2024 Provider: Diagnosis: Last Documented On 4 1:27PM By Gabbie Brandon ; [facility] Advair Diskus 250-50 MCG/ACT Inhalation Aerosol Powder Breath Activated 02/06/2024 Provider: Diagnosis: Last Documented On 4 1:28PM By Gabbie Brandon ; [facility], [facility] Protonix 20 MG Oral Tablet Delayed Release 02/06/2024 Provider: Diagnosis: Last Documented On 4 1:32PM By Gabbie Brandon ; [facility] Xyzal Allergy 24HR 5 MG Oral Tablet 02/06/2024 Provi deng: Diagnosis: Last Documented On 4 1:32PM By Gabbie Brandon ; [facility] Methocarbamol 500 MG Oral Tablet 08/29/2023 Provider : MARLENY RASCON MD Diagnosis: Last Documented On 4 10:15AM By Lele Cardoza ; [facility] Xiaflex 0.9 MG Injection Solution Reconstituted 2023 Provider: Diagnosis: Last Documented On 4 10:15AM By Lele Cardoza ; [facility] Pantoprazole Sodium 40 MG Oral Tablet Delayed Release 05/18/2023 Provider: Diagnosis: Last Documented On 4 10:09AM By Concha Pretty ; [facility] Past Medications on file HYDROcodone-Acetaminophen 7. 5-325 MG Oral Tablet 05/20/2024 - 05/25/2024 Provider: Toney Holcomb MD Diagnosis: 1 q 6 hours prn pain Last Documented On 5 9:19AM By Dr. Holcomb ; [facility], [facility] Montelukast Sodium 10 MG Oral Tablet 02/06/2024 - 04/19 Provider: Diagnosis: Last Documented On 4 1:27PM By Gabbie Brandon ; [facility], [facility] Hydroxyurea 500 MG Oral Capsule 02/06/2024 - Provider: Diagnosis: Last Documented On 4 1:27PM By Gabbie Brandon ; [facility], [facility] Fluticasone Propionate 50 MC G/ACT Nasal Suspension 02/06/2024 - 05/06/2024 Provider: Diagnosis: Last Documented On 4 1:27PM By Gabbie Brandon ; [facility], [facility] Aspirin Adult Low Strength 8 1 MG Oral Tablet Delayed Release 01/12/2023 - 02/26/2023 Provider: Kvng Deras MD Diagnosis: twice a day Last Documented On 3 10:58AM By Kvng Deras ; [facility], [facility] Medications Administered Includes: Administered Medications from this encounter No Administered Medications Recorded Results Includes: Results discussed during this encounter No Results Recorded For Specified Dates History of Present Illness Includes: History of Present Illness from this encounter HPI Ann Marie Millan is a 69 year old female. - Allergy list reviewed - Problem list reviewed - Medication list reviewed - - Review of medications documented Social History Description Last Updated No recent change in diet 01/30/2023 Last Documented On 5 11:20AM ; [facility], [facility] Not a current smoker. 01/30/2023 Last Documented On 5 11:20AM ; [facility], [facility] Smoking status : Never smoker 01/17/2017 Last Documented On 5 11:20AM ; [facility], [facility] Caffeine use 01/17/2017 Last Documented On 5 11:20AM ; [facility], [facility] Exercising regularly 01/17/2017 Last Documented On 5 11:20AM ; [facility], [facility] Not using alcohol 01/17/2017 Last Documented On 5 11:20AM ; [facility] Not using drugs 01/17/2017 Last Documented On 5 11:20AM ; [facility] Procedures and Surgical History Includes: Procedures from this encounter Procedures Code Diagnosis Performing Provider Service Location Service Date APPLICATION OF FOREARM CAST (Related Proc Same Dr, RIGHT) 35236 Unil primary osteoarth of first carpometacarp joint, r hand Toney Holcomb MD [facility] 06/04/2024 Last Documented On 5 1:24PM ; [facility] CAST SUPPLIES SHORT ARM ADULT 11 YEARS + Q4010 Unil primary osteoarth of first carpometacarp joint, r hand Toney Holcomb MD [facility] 06/04/2024 Last Documented On 5 1:24PM ; [facility] X-RAY EXAM OF FINGER(S) 2-3 VIEWS (RIGHT) 79705 Unil primary osteoarth of first carpometacarp joint, r hand Toney Holcomb MD [facility] 06/04/2024 Last Documented On 5 1:24PM ; [facility] body mass index not documented system reason [id number] Last Documented On 5 11:29AM ; [facility] Surgical History Last Updated History of total hip replacement 024 Last Documented On 5 11:20AM ; [facility] History of History of Gallbladder 2023 Last Documented On 5 11:20AM ; [facility] History of appendectomy 01/17/2017 Last Documented On 5 11:20AM ; [facility] History of hernia repair 01/17/2017 Last Documented On 5 11:20AM ; [facility] History of hysterectomy 01/17/2017 Last Documented On 5 11:20AM ; [facility] Medical History Includes: Medical History addressed during this encounter Description Last Updated Finger removal of cyst, Vari cose vein lasered, Blocked abdominal sx ~ ~anmeia ~acid reflux ~high platelets and mutated Orestes gene 02/06/2024 Last Documented On 5 11:20AM ; [facility] History of Anemia 02/06/2024 Last Documented On 5 11:20AM ; [facility] History of arthritis 02/06/2024 Last Documented On 5 11:20AM ; [facility] History of asthma 02/06/2024 Last Documented On 5 11:20AM ; [facility] History of Heartburn / Acid Reflux 02/05 Last Documented On 5 11:20AM ; [facility] History of History of Blood Transfusion 02/06/2024 Last Documented On 5 11:20AM ; [facility], [facility] Arthritic joint problems 01/17/2017 Last Documented On 5 11:20AM ; [facility] Gallbladder disease 01/17/2017 Last Documented On 5 11:20AM ; [facility], [facility] Family History Includes: Family History addressed during this encounter Description Last Updated Sororal history of diabetes mellitus 03/2016 Last Documented On 5 11:20AM ; [facility], [facility] Maternal history of diabetes mellitus Last Documented On 5 11:20AM ; [facility], [facility] Review of Systems Includes: Review of Systems [...] Encounters Encounter Provider Location Date Check-In Time Check- Out Time Diagnosis Post Op Toney Holcomb MD [facility] 5 10:38AM 11:21AM Insurance Includes: Active Insurance Policies Plan Name Member ID Group # Subscriber Relationship Effect rene Dates 1 - [employer] [id number] Ann Marie Millan Self 03/19/19 24 - Unknown Clinical Notes Includes: Clinical Notes from this encounter * Progress note Date Encounter Last Documented by 06/04/2024 Post Op Last documented on 06/05/2024; 10:12 AM, Toney Holcomb MD; [facility], [facility] Active Problems & Conditions - Joint Pain in the Right Hip - Pain At Base of Both Thumbs - Pain in Both Feet - Pain in the Right Hand Only Referred Here Referred by. History of Present Illness Ann Marie Millan is a 69 year old female. - Allergy list reviewed - Problem list reviewed - Medication list reviewed - - Review of medications documented Current Medication [...] Medical: Gallbladder disease and joint problems arthritic. Diagnoses: Asthma Anemia History of Blood Transfusion Heartburn / Acid Reflux. Arthritis Finger removal of cyst, Varicose vein lasered, Blocked abdominal sx anmeia acid reflux high platelets and mutated Orestes gene. Surgical: - Appendectomy - Hernia repair - Hysterectomy - History of Gallbladder - Total hip replacement Social History Not a current smoker. Current diet: No recent change in diet. Caffeine use: Caffeine use. Tobacco use: Smoking status: Never smoker. Alcohol: Not using alcohol. Drug Use: Not using drugs. Habits: Exercising regularly. Allergies - No Known Allergies Family History Maternal: Diabetes mellitus Sororal: Diabetes mellitus Review [...] complaint of seasonal allergic reaction. Physical Findings Incisions look good. No sign of infection. Tests X-ray and shows normal postsurgical changes after CMC arthroplasty Counseling/Education - Tobacco non-user - Use of tobacco assessment performed Plan - Patient screened for future fall risk: documentation of any fall with injury in past year Sutures removed. Thumb spica cast applied. Follow up in 2 weeks Fall Risk Assessment: This patient has been [...] therapy has been discussed with the patient. Practice Management Body mass index not documented system reason. Care Team - MARLENY RASCON MD - BAR ASSISTANT Notes This dictation was done with voice recognition software and may contain errors and omissions.
--- OUTSIDE RECORDS SUMMARY | 2025-02-06 17:36 | XMS_ITS ---
Care Plan - [facility], [facility] Created on: February 06, 2025 Ann Marie Millan : 1955 Sex: Female Author Organization [facility], [facility] Address [address] [place] [address] Phone Care Team Providers Care Rehab Liaison Name Role Phone ABIODUN ALEXANDER, MARLENY Unavailable [phone] Aicha ALEXANDER, Toney Deluca Unavailable [phone]
--- OUTSIDE RECORDS SUMMARY | 2025-02-06 17:36 | XMS_ITS ---
Author Organization [facility] , [facility] Address [address] [place] [address] Phone Care Team Providers Care Assignment Desk Assistant Name Role Phone ABIODUN ALEXANDER, MARLENY Unavailable [phone] Toney Holcomb MD Unavailable [phone] Problems Includes: Active, inactive, and resolved Problems All Visits Onset Date Resolved Date Provider Condition S tatus Soft Tissue Pain Foot Bilateral 02/06/2024 Tony Frey DPM Active Last Documented On 4 1:26PM ; [facility] Soft Tissue Pain Hand Base o f Thumb Bilateral 08/20/2023 Toney Holcomb MD Active Last Documented On 4 10:17AM ; [facility], [facility] Joint Pain Hip Right 07/26/2022 Curry Yeung Active Last Documented On 3 3:05PM ; [facility], [facility] Soft Tissue Pain Hand Unilaterally Right 01/17/2017 Toney Holcomb MD Active Last Documented On 7 1:20PM ; [facility], [facility] Plan of Treatment Findings Encounter Date Patient screened for future fall risk: documentation of any fall with injury in past year Post Op with Toney Holcomb MD 07/30/2024 Last Documented On 5 4:28PM ; [facility], [facility] Patient screened for future fall risk: documentation of any fall with injury in past year Post Op with Toney Holcomb MD 07/09/2024 Last Documented On 5 2:05PM ; [facility], [facility] Patient screened for future fall risk: documentation of any fall with injury in past year Post Op with Toney Holcomb MD 06/23/2024 Last Documented On 5 11:48PM ; [facility] Patient screened for future fall risk: documentation of any fall with injury in past year Post Op with Toney Holcomb MD 06/04/2024 Last Documented On 5 10:12AM ; [facility] Patient screened for future fall risk: documentation of any fall with injury in past year Follow Up with Toney Holcomb MD 02/25/2024 Last Documented On 4 2:24PM ; [facility] Patient screened for future fall risk: documentation of any fall with injury in past year Follow Up with Tony Frey DPM 02/12/2024 Last Documented On 4 2:32PM ; [facility] Patient screened for future fall risk: documentation of any fall with injury in past year SECOND OPINION with Tony Frey DPM 02/06/2024 Last Documented On 4 2:32PM ; [facility] Patient screened for future fall risk: documentation of any fall with injury in past year Xiaflex with Toney Holcomb MD 09/12/2023 Last Documented On 4 11:20PM ; [facility] Patient screened for future fall risk: documentation of any fall with injury in past year Xiaflex with Toney Holcomb MD 09/10/2023 Last Documented On 4 2:35PM ; [facility] Patient screened for future fall risk: documentation of any fall with injury in past year NEW PROBLEM/EST PT with Toney Holcomb MD 08/20/2023 Last Documented On 4 3:09PM ; [facility] Pending Tests Order Diagnosis Results Due Ordering P rovider Radiology - MRI MRI Knee Pain in right hip 03/13/23 Luis E Deras MD Last Documented On 3 10:56AM ; [facility] Radiology - MRI MRI Lumbar Spine Pain in right hip Narciso Deras MD Last Documented On 4 11:41AM ; [facility], [facility] Procedure/Tests - EMG Needle Electromyog lamar, each EXT, complete Pain in unspecified foot 02/20/24 Tony Frey DPM Last Documented On 4 2:32PM ; [facility], [facility] Referrals To Diagnosis Consult with Neurologist Note: Referral Neruology for abnormal EMG Last Documented On 5 2:31PM ; [facility], [facility] Instructions to patient Lose weight Last Documented On 5 10:22AM ; [facility] Lose weight Last Documented On 5 10:27AM ; [facility] Lose weight Last Documented On 5 10:50AM ; [facility] Lose weight Last Documented On 4 10:04AM ; [facility] Lose weight Last Documented On 4 10:16AM ; [facility], [facility] Assessments Includes: Assessments for all patient encounters Findings Encounter Date Overweight Post Op with Toney Billings 07/30/2024 Last Documented On 5 4:28PM ; [facility] Overweight Post Op with Toney Billings 07/09/2024 Last Documented On 5 2:05PM ; [facility], [facility] Overweight Post Op with Toney Billings 06/23/2024 Last Documented On 5 11:48PM ; [facility], [facility] Instructions Includes: Instructions for all patient encounters Instructions to patient Lose weight Last Documented On 5 10:22AM ; [facility] Lose weight Last Documented On 5 10:27AM ; [facility] Lose weight Last Documented On 5 10:50AM ; [facility] Lose weight Last Documented On 4 10:04AM ; [facility] Lose weight Last Documented On 4 10:16AM ; [facility], [facility] Medical Equipment - Implanted Devices Includes: Current and historical Devices No Medical Equipment Recorded Medications Includes: Current and historical Medications Current Medications (continue as prescribed) Gabapentin 100 MG Oral Capsule 02/12/2024 Provider: Tony S Shante DPM Diagnosis: 1 every bedtime Last Documented On 4 2:43PM By Dr. Frey ; [facility] Aleve 220 MG Oral Capsule 02/06/2024 Provider: Diagnosis: Last Documented On 4 1:27PM By Gabbie Brandon ; [facility] Advair Diskus 250-50 MCG/ACT Inhalation Aerosol Powder Breath Activated 02/06/2024 Provider: Diagnosis: Last Documented On 4 1:28PM By Gabbie Brandon ; [facility] Protonix 20 MG Oral Tablet Delayed Release 02/06/2024 Provider: Diagnosis: Last Documented On 4 1:32PM By Gabbie Brandon ; [facility] Xyzal Allergy 24HR 5 MG Oral Tablet 02/06/2024 Provi deng: Diagnosis: Last Documented On 4 1:32PM By Gabbie Brandon ; [facility] Methocarbamol 500 MG Oral Tablet 08/29/2023 Provider : MARLENY RASCON MD Diagnosis: Last Documented On 4 10:15AM By Lele Cardoza ; [facility], [facility] Xiaflex 0.9 MG Injection Solution Reconstituted 2023 Provider: Diagnosis: Last Documented On 4 10:15AM By Lele Cardoza ; [facility], [facility] Pantoprazole Sodium 40 MG Oral Tablet Delayed Release 05/18/2023 Provider: Diagnosis: Last Documented On 4 10:09AM By Concha Pretty ; [facility], [facility] Past Medications on file HYDROcodone-Acetaminophen 7. 5-325 MG Oral Tablet 05/20/2024 - 05/25/2024 Provider: Toney Holcomb MD Diagnosis: 1 q 6 hours prn pain Last Documented On 5 9:19AM By Dr. Holcomb ; [facility] Montelukast Sodium 10 MG Oral Tablet 02/06/2024 - 04/19 Provider: Diagnosis: Last Documented On 4 1:27PM By Gabbie Brandon ; [facility] Hydroxyurea 500 MG Oral Capsule 02/06/2024 - Provider: Diagnosis: Last Documented On 4 1:27PM By Gabbie Brandon ; [facility] Fluticasone Propionate 50 MC G/ACT Nasal Suspension 02/06/2024 - 05/06/2024 Provider: Diagnosis: Last Documented On 4 1:27PM By Gabbie Brandon ; [facility] Fluticasone Propionate 50 MC G/ACT Nasal Suspension 06/23/2023 - 02/06/2024 Provider: Diagnosis: Last Documented On 4 1:27PM By Gabbie Brandon ; [facility] Amoxicillin-Pot Clavulanate 875-125 MG Oral Tablet 05/15/2023 - 07/03/2023 Provider: Harika Sanders APRN Diagnosis: Last Documented On 4 10:16AM By Elizabeth Castaneda ; [facility] Montelukast Sodium 10 MG Oral Tablet 05/03/2023 - 01/18 Provider: Diagnosis: Last Documented On 4 1:27PM By Gabbie Brandon ; [facility], [facility] Fluticasone-Salmeterol 250-5 0 MCG/ACT Inhalation Aerosol Powder Breath Activated 04/21/2023 - 07/03/2023 Provider: Diagnosis: Last Documented On 4 10:17AM By Elizabeth Castaneda ; [facility] Fluticasone Propionate 50 MC G/ACT Nasal Suspension 03/07/2023 - 07/03/2023 Provider: Diagnosis: Last Documented On 4 10:16AM By Elizabeth Castaneda ; [facility], [facility] Albuterol Sulfate (2.5 MG/3M L) 0.083% Inhalation Nebulization solution 03/06/2023 - 02/06/2024 Provider: Diagnosis: Last Documented On 4 1:28PM By Gabbie Brandon ; [facility] Pantoprazole Sodium 40 MG Or al Tablet Delayed Release 02/21/2023 - 07/03/2023 Provider: Diagnosis: Last Documented On 4 10:17AM By Elizabeth Castaneda ; [facility] Ondansetron 4 MG Oral Tablet Disintegrating 02/15/2023 - 02/06/2024 Provider: Diagnosis: Last Documented On 4 1:28PM By Gabbie Brandon ; [facility], [facility] Aspirin Adult Low Strength 8 1 MG Oral Tablet Delayed Release 01/12/2023 - 02/26/2023 Provider: Kvng Deras MD Diagnosis: twice a day Last Documented On 3 10:58AM By Kvng Deras ; [facility], [facility] oxyCODONE HCl 5 MG Oral Tablet 01/12/2023 - 07/03/2023 Provider: Kvng Deras MD Diagnosis: 1-2 p o q 6-8h for post op pain Last Documented On 4 10:16AM By Elizabeth Castaneda ; [facility], [facility] Meloxicam 15 MG Oral Tablet 01/12/2023 - 07/03/2023 Pr ovider: Kvng Deras MD Diagnosis: once a day Last Documented On 4 10:16AM By Elizabeth Castaneda ; [facility], [facility] Ondansetron HCl 4 MG Oral Tablet 01/12/2023 - 07/03/19 24 Provider: Kvng Deras MD Diagnosis: 1-2 p o q 6-8h as needed for nausea Last Documented On 4 10:16AM By Elizabeth Castaneda ; [facility], [facility] Cefadroxil 500 MG Oral Capsule 01/12/2023 - 07/03/2023 Provider: Kvng Deras MD Diagnosis: twice a day Last Documented On 4 10:16AM By Elizabeth Castaneda ; [facility], [facility] traMADol HCl 50 MG Oral Tablet 01/12/2023 - 07/03/2023 Provider: Kvng Deras MD Diagnosis: 1-2 p o q 6-8h for breakthrough post op pain Last Documented On 4 10:17AM By Elizabeth Castaneda ; [facility], [facility] Colace 100 MG Oral Capsule 01/12/2023 - 07/03/2023 Pro vider: Kvng Deras MD Diagnosis: 1-2 tabs daily as needed, AFTER SURGERY Last Documented On 4 10:16AM By Elizabeth Castaneda ; [facility], [facility] Acetaminophen 500 MG Oral Tablet 01/12/2023 - 07/03/19 Provider: Kvng Deras MD Diagnosis: 2 three times a day , AFTER SURGERY Last Documented On 4 10:16AM By Elizabeth Casatneda ; [facility], [facility] Aleve 220 MG Oral Capsule 12/27/2022 - 02/06/2024 Prov ider: Diagnosis: Last Documented On 4 1:27PM By Gabbie Brandon ; [facility] Tylenol 500mg 500mg Oral Tablet 12/20/2022 - Provider: Diagnosis: Last Documented On 4 1:28PM By Gabbie Brandon ; [facility], [facility] Mucinex 600 MG Oral Tablet E xtended Release 12 Hour 12/20/2022 - 02/06/2024 Provider: Diagnosis: Last Documented On 4 1:28PM By Gabbie Brandon ; [facility], [facility] Montelukast Sodium 10 MG Oral Tablet 12/19/2022 - 06/17 Provider: Diagnosis: Last Documented On 4 10:17AM By Elizabeth Castaneda ; [facility], [facility] Albuterol Sulfate HFA 108 (9 0 Base) MCG/ACT Inhalation Aerosol Solution 12/13/2022 - 03/20/2023 Provider: Diagnosis: Last Documented On 4 1:24PM By Kvng Deras ; [facility], [facility] Pantoprazole Sodium 40 MG Or al Tablet Delayed Release 11/25/2022 - 03/20/2023 Provider: Diagnosis: Last Documented On 4 1:23PM By Kvng Deras ; [facility], [facility] Levocetirizine Dihydrochloride 5 MG Oral Tablet 10/24/2022 - 03/20/2023 Provider: Diagnosis: Last Documented On 4 1:24PM By Kvng Deras ; [facility], [facility] Advair Diskus 250-50 MCG/ACT Inhalation Aerosol Powder Breath Activated 09/11/2022 - 02/06/2024 Provider: Diagnosis: Last Documented On 4 1:28PM By Gabbie Brandon ; [facility], [facility] Xyzal Allergy 24HR Childrens 2.5 MG/5ML Oral Solution 09/11/2022 - 09/11/2022 Provider: Diagnosis: Last Documented On 3 11:09AM By Lou Lee ; [facility], [facility] Aleve 220 MG Oral Capsule 09/11/2022 - 12/20/2022 Prov ider: Diagnosis: Last Documented On 3 12:26PM By Judy Larios ; [facility], [facility] Fish Oil [place]-3 1000 MG Oral Capsule 09/11/2022 - Provider: Diagnosis: Last Documented On 3 11:09AM By Lou Lee ; [facility], [facility] Vitamin E 134 MG (200 UNIT) Oral Capsule 09/11/2022 - 12/20/2022 Provider: Diagnosis: Last Documented On 3 12:26PM By Judy Larios ; [facility], [facility] Vitamin D 25 MCG (1000 UT) Oral Tablet 09/11/2022 - Provider: Diagnosis: Last Documented On 3 12:26PM By Judy Larios ; [facility], [facility] Flonase Allergy Relief 50 MC G/ACT Nasal Suspension 09/11/2022 - 02/06/2024 Provider: Diagnosis: Last Documented On 4 1:28PM By Gabbie Brandon ; [facility], [facility] Pantoprazole Sodium 40 MG Or al Tablet Delayed Release 08/18/2022 - 03/20/2023 Provider: Diagnosis: Last Documented On 4 1:23PM By Kvng Huston [facility], [facility] Pantoprazole Sodium 40 MG Or al Tablet Delayed Release 08/18/2022 - 09/11/2022 Provider: Diagnosis: Last Documented On 3 11:09AM By Lou Lee ; [facility], [facility] Hydroxyurea 500 MG Oral Capsule 07/25/2022 - Provider: Diagnosis: Last Documented On 4 1:27PM By Gabbie Brandon ; [facility], [facility] Levocetirizine Dihydrochloride 5 MG Oral Tablet 07/18/2022 - 02/06/2024 Provider: Diagnosis: Last Documented On 4 1:27PM By Gabbie Huston [facility], [facility] Fluticasone-Salmeterol 250-5 0 MCG/ACT Inhalation Aerosol Powder Breath Activated 07/18/2022 - 12/20/2022 Provider: Diagnosis: Last Documented On 3 12:26PM By Judy Larios ; [facility], [facility] Montelukast Sodium 10 MG Oral Tablet 06/28/2022 - 04/2023 Provider: Diagnosis: Last Documented On 4 1:24PM By Kvng Deras ; [facility], [facility] Aleve 220MG Oral Tablet 01/17/2017 - 09/11/2022 Provid er: Diagnosis: Last Documented On 3 11:07AM By Lou Lee ; [facility], [facility] Fish Oil Omaha-3 1000MG Oral Capsule 01/17/2017 - 08/18 Provider: Diagnosis: Last Documented On 3 11:07AM By Lou Lee ; [facility], [facility] Lunesta 1MG Oral Tablet 01/17/2017 - 09/11/2022 Provid er: Diagnosis: Last Documented On 3 11:07AM By Lou Lee ; [facility], [facility] Mucinex 600MG Oral Tablet Ex tended Release 12 Hour 01/17/2017 - 09/11/2022 Provider: Diagnosis: Last Documented On 3 11:07AM By Lou Lee ; [facility], [facility] Pantoprazole Sodium 20MG Ora l Tablet Delayed Release 12/27/2016 - 09/11/2022 Provider: MARLENY Philip MD Diagnosis: Last Documented On 3 11:07AM By Lou Lee ; [facility], [facility] Advair Diskus 100-50MCG/DOSE Inhalation Aerosol Powder Breath Activated 12/22/2016 - 09/11/2022 Provider: Diagnosis: Last Documented On 3 11:07AM By Lou Lee ; [facility], [facility] CeleBREX 200 MG OR CAPS 02/06/2006 - 04/03/2023 Provid er: Shannan Hassan MD Diagnosis: [facility] [phone] jsb Last Documented On 4 10:08AM By Elizabeth Castaneda ; [facility], [facility] Medications Administered Includes: Administered Medications in patient's chart No Administered Medications Recorded Vital Signs Includes: Vital Signs from 02/07/2024 through 02/06/2025 Vital Name 07/30/2024 10:22A 07/09/2024 10:27A 06/23/2024 10:49A 02/25/2024 10:23A 02/12/2024 02:07P Height (in) 66 66 66 66 66 Weight (lb) 160 160 160 160 160 Body Mass Index 25.8 25.8 25.8 25.8 25.8 Body Surface Area 1.8 1.8 1.8 1.8 1.8 Note: [facility]k Last Documented: On 07/30/2024 10:22AM ; [facility] On 07/09/2024 10:27AM ; [facility] On 06/23/2024 10:49AM ; [facility] On 02/25/2024 10:23AM ; [facility] On 02/12/2024 2:07PM ; [facility], [facility] Results Includes: Results from 02/07/2024 through 02/06/2025 No Results Recorded For Specified Dates History of Present Illness History of Present Illness not supported for this document type No History of Present Illness Recorded Social History Description Last Updated Tobacco non-user 01/30/2023 Last Documented On 3 7:44AM ; [facility], [facility] No recent change in diet 01/30/2023 Last Documented On 3 7:44AM ; [facility], [facility] Not a current smoker. 01/30/2023 Last Documented On 3 7:44AM ; [facility], [facility] No tobacco use 01/17/2017 Last Documented On 7 2:15PM ; [facility] Smoking status : Never smoker 01/17/2017 Last Documented On 7 2:15PM ; [facility] Caffeine use 01/17/2017 Last Documented On 7 2:15PM ; [facility], [facility] Exercising regularly 01/17/2017 Last Documented On 7 2:15PM ; [facility], [facility] No recent change in diet 01/17/2017 Last Documented On 7 2:15PM ; [facility], [facility] Not a current smoker 01/17/2017 Last Documented On 7 2:15PM ; [facility], [facility] Not using alcohol 01/17/2017 Last Documented On 7 2:15PM ; [facility], [facility] Not using drugs 01/17/2017 Last Documented On 7 2:15PM ; [facility], [facility] Procedures and Surgical History Includes: Procedures from 02/07/2024 through 02/06/2025 Procedures Code Diagnosis Performing Provider Service Location Service Date [facility] (Occupational therapy) 70467 Unil primary osteoarth of first carpometacarp joint, r hand Obi Angle OT [facility] 09/24/2024 Last Documented On 5 7:11AM ; [facility], [facility] THERAPEUTIC ACTIVITIES (Occupational therapy) 21175 Unil primary osteoarth of first carpometacarp joint, r hand Obi Angle OT [facility] 09/24/2024 Last Documented On 5 7:11AM ; [facility], [facility] THERAPEUTIC EXERCISES (Occupational therapy) 43089 Unil primary osteoarth of first carpometacarp joint, r hand Obi Angle OT [facility] 09/24/2024 Last Documented On 5 7:11AM ; [facility], [facility] THERAPEUTIC ACTIVITIES (Occupational therapy) 92980 Unil primary osteoarth of first carpometacarp joint, r hand Obi Angle OT [facility] 09/10/2024 Last Documented On 5 2:58PM ; [facility], [facility] MANUAL THERAPY (Occupational therapy) 36643 Unil primary osteoarth of first carpometacarp joint, r hand Obi Angle OT [facility] 09/10/2024 Last Documented On 5 2:58PM ; [facility], [facility] THERAPEUTIC EXERCISES (Occupational therapy) 29397 Unil primary osteoarth of first carpometacarp joint, r hand Obi Angle OT [facility] 09/10/2024 Last Documented On 5 2:58PM ; [facility] (Occupational therapy) 46927 Unil primary osteoarth of first carpometacarp joint, r hand Obi Angle OT [facility] 09/03/2024 Last Documented On 5 1:24PM ; [facility] THERAPEUTIC ACTIVITIES (Occupational therapy) 49090 Unil primary osteoarth of first carpometacarp joint, r hand Obi Angle OT [facility] 09/03/2024 Last Documented On 5 1:24PM ; [facility] THERAPEUTIC EXERCISES (Occupational therapy) 39063 Unil primary osteoarth of first carpometacarp joint, r hand Obi Angle OT [facility] 09/03/2024 Last Documented On 5 1:24PM ; [facility] (Occupational therapy) [id number] Unil primary osteoarth of first carpometacarp joint, r hand Obi Angle OT [facility] 08/27/2024 Last Documented On 5 1:34PM ; [facility], [facility] THERAPEUTIC ACTIVITIES (Occupational therapy) 90149 Unil primary osteoarth of first carpometacarp joint, r hand Obi Angle OT [facility] 08/27/2024 Last Documented On 5 1:34PM ; [facility] THERAPEUTIC EXERCISES (Occupational therapy) 96878 Unil primary osteoarth of first carpometacarp joint, r hand Obi Angle OT [facility] 08/27/2024 Last Documented On 5 1:34PM ; [facility] (Occupational therapy) 39829 Unil primary osteoarth of first carpometacarp joint, r hand [facility]bi Ang[facility] 08/20/2024 Last Documented On 5 8:25AM ; [facility] THERAPEUTIC ACTIVITIES (Occupational therapy) 02455 Unil primary osteoarth of first carpometacarp joint, r hand Obi Angle OT [facility] 08/20/2024 Last Documented On 8:25AM ; [facility], [facility] MANUAL THERAPY (Occupational therapy) 69861 Unil primary osteoarth of first carpometacarp joint, r hand Obi Angle OT [facility] 08/20/2024 Last Documented On 5 8:25AM ; [facility] THERAPEUTIC EXERCISES (Occupational therapy) 12956 Unil primary osteoarth of first carpometacarp joint, r hand Obi Angle OT [facility] 08/20/2024 Last Documented On 5 8:25AM ; [facility] ORTHOP[facility]ED[facility], [facility] WHIRLPOOL THERAPY (Occupational therapy) 54688 Unil primary osteoarth of first carpometacarp joint, r hand Obi Angle OT [facility] 08/13/2024 Last Documented On 5 1:49PM ; [facility] ORTHOPAEDICS, [facility] THERAPEUTIC ACTIVITIES (Occupational therapy) 28265 Unil primary osteoarth of first carpometacarp joint, r hand Obi Angle OT [facility] 08/13/2024 Last Documented On 5 1:49PM ; [facility], [facility] MANUAL THERAPY (Occupational therapy) 45263 Unil primary osteoarth of first carpometacarp joint, r hand Obi Angle OT [facility] 08/13/2024 Last Documented On 5 1:49PM ; [facility] ORTHOPAEDICS, [facility] THERAPEUTIC EXERCISES (Occupational therapy) 08207 Unil primary osteoarth of first carpometacarp joint, r hand Obi Angle OT [facility] 08/13/2024 Last Documented On 5 1:49PM ; [facility]ED[facility], [facility] WHIRLPOOL THERAPY (Occupational therapy) 58285 Unil primary osteoarth of first carpometacarp joint, r hand Obi Angle OT [facility] 08/06/2024 Last Documented On 5 12:59PM ; [facility]OP[facility]EDICS, [facility] THERAPEUTIC ACTIVITIES (Occupational therapy) 68698 Unil primary osteoarth of first carpometacarp joint, r hand Obi Angle OT [facility] 08/06/2024 Last Documented On 5 12:59PM ; [facility]OP[facility]ED[facility], [facility] MANUAL THERAPY (Occupational therapy) 12635 Unil primary osteoarth of first carpometacarp joint, r hand Obi Angle OT [facility] 08/06/2024 Last Documented On 5 12:59PM ; [facility] ORTHOP[facility]ED[facility], [facility] THERAPEUTIC EXERCISES (Occupational therapy) 68779 Unil primary osteoarth of first carpometacarp joint, r hand Obi Angle OT [facility] 08/06/2024 Last Documented On 5 12:59PM ; [facility] OR[facility]OP[facility]ED[facility], [facility] WHIRLPOOL THERAPY (Occupational therapy) 70064 Unil primary osteoarth of first carpometacarp joint, r hand Obi Angle OT [facility] 07/28/2024 Last Documented On 5 1:53PM ; [facility], [facility] THERAPEUTIC ACTIVITIES (Occupational therapy) 01567 Unil primary osteoarth of first carpometacarp joint, r hand Obi Angle OT [facility] 07/28/2024 Last Documented On 5 1:53PM ; [facility], [facility] MANUAL THERAPY (Occupational therapy) 51538 Unil primary osteoarth of first carpometacarp joint, r hand Obi Angle OT [facility] 07/28/2024 Last Documented On 5 1:53PM ; [facility] ORTHOPAEDICS, [facility] THERAPEUTIC EXERCISES (Occupational therapy) 20028 Unil primary osteoarth of first carpometacarp joint, r hand Obi Angle OT [facility] 07/28/2024 Last Documented On 5 1:53PM ; [facility] ORTHOP[facility]EDICS, [facility] THERAPEUTIC EXERCISES (Occupational therapy) 57745 Unil primary osteoarth of first carpometacarp joint, r hand Obi Angle OT [facility] 07/21/2024 Last Documented On 5 4:59PM ; [facility] ORTHOPAEDICS, [facility] OT Eval - Mod Complexity (Occupational therapy) 97992 Unil primary osteoarth of first carpometacarp joint, r hand Obi Angle OT [facility] 07/21/2024 Last Documented On 5 4:59PM ; [facility] SELF CARE MNGMENT TRAINING (Occupational therapy) 37097 Unil primary osteoarth of first carpometacarp joint, r hand Obi Angle OT [facility] 07/21/2024 Last Documented On 5 4:59PM ; [facility] TKO Boxer Fracture Brace (LEFT) [id number] Unil primary osteoarth of first carpometacarp joint, l hand Toney Holcomb MD [facility] 07/09/2024 Last Documented On 5 9:51AM ; [facility] Triamcinolone/Kenalog, 10mg per cc [id number] Pain in left finger(s) Toney Holcomb MD [facility] 07/09/2024 Last Documented On 5 10:19AM ; [facility] DRAIN/INJECT, JOINT/BURSA (Unrelated Procedure, LEFT) Pain in left finger(s) Toney Holcomb MD [facility] 07/09/2024 Last Documented On 5 10:19AM ; [facility] CAST SUPPLIES SHORT ARM ADULT 11 YEARS + Q4010 Unil primary osteoarth of first carpometacarp joint, r hand Toney Holcomb MD [facility] 06/23/2024 Last Documented On 5 3:28PM ; [facility] APPLICATION OF FOREARM CAST (RIGHT, Related Proc Same Dr) 50461 Unil primary osteoarth of first carpometacarp joint, r hand Toney Holcomb MD [facility] 06/23/2024 Last Documented On 5 3:28PM ; [facility] CAST SUPPLIES SHORT ARM ADULT 11 YEARS + Q4010 Unil primary osteoarth of first carpometacarp joint, r hand Toney Holcomb MD [facility] 06/04/2024 Last Documented On 5 1:24PM ; [facility] APPLICATION OF FOREARM CAST (Related Proc Same Dr, RIGHT) 18602 Unil primary osteoarth of first carpometacarp joint, r hand Toney Holcomb MD [facility] 06/04/2024 Last Documented On 5 1:24PM ; [facility] X-RAY EXAM OF FINGER(S) 2-3 VIEWS (RIGHT) 15267 Unil primary osteoarth of first carpometacarp joint, r hand Toney Holcomb MD [facility] 06/04/2024 Last Documented On 5 1:24PM ; [facility] REPAIR WRIST JOINT(S) (RIGHT) 65690 Unil primary osteoarth of first carpometacarp joint, r hand Toney Holcomb MD [facility] Surgical Division 05/22/2024 Last Documented On 5 7:51AM ; [facility] Triamcinolone/Kenalog, 10mg per cc J3301 Unil primary osteoarth of first carpometacarp joint, r hand Toney Holcomb MD [facility] 02/25/2024 Last Documented On 4 9:52AM ; [facility] DRAIN/INJECT, JOINT/BURSA (RIGHT) 30154 Unil primary osteoarth of first carpometacarp joint, r hand Toney Holcomb MD [facility] 02/25/2024 Last Documented On 4 9:52AM ; [facility] Needle EMG, complete, five or more muscles 62997 Hereditary and idiopathic neuropathy, unspecified Toney Holcomb MD [facility] 02/12/2024 Last Documented On 4 10:23AM ; [facility] Nerve Conduction Studies; 9-10 studies 51576 Hereditary and idiopathic neuropathy, unspecified Toney Holcomb MD [facility] 02/12/2024 Last Documented On 4 10:23AM ; [facility] Surgical History Last Updated History of total hip replacement Last Documented On 4 2:32PM ; [facility] History of History of Gallbladder 2023 Last Documented On 4 2:32PM ; [facility] History of appendectomy 01/17/2017 Last Documented On 7 2:15PM ; [facility] History of hernia repair 01/17/2017 Last Documented On 7 2:15PM ; [facility], [facility] History of hysterectomy 01/17/2017 Last Documented On 7 2:15PM ; [facility], [facility] Medical History Includes: Medical History in patient's chart Description Last Updated Finger removal of cyst, Vari cose vein lasered, Blocked abdominal sx ~ ~anmeia ~acid reflux ~high platelets and mutated Orestes gene 02/06/2024 Last Documented On 4 2:32PM ; [facility], [facility] History of Anemia 02/06/2024 Last Documented On 4 2:32PM ; [facility], [facility] History of arthritis 02/06/2024 Last Documented On 4 2:32PM ; [facility], [facility] History of asthma 02/06/2024 Last Documented On 4 2:32PM ; [facility], [facility] History of Heartburn / Acid Reflux 02/05 Last Documented On 4 2:32PM ; [facility], [facility] History of History of Blood Transfusion 02/06/2024 Last Documented On 4 2:32PM ; [facility], [facility] A recent immunization for pneumococcal p neumonia 01/10/2017 01/17/2017 Last Documented On 7 2:15PM ; [facility], [facility] Arthritic joint problems 01/17/2017 Last Documented On 7 2:15PM ; [facility] Gallbladder disease 01/17/2017 Last Documented On 7 2:15PM ; [facility], [facility] Family History Includes: Family History in patient's chart Description Last Updated Diabetes mellitus 02/06/2024 Last Documented On 4 2:32PM ; [facility], [facility] Sororal history of diabetes mellitus 03/2016 Last Documented On 7 2:15PM ; [facility], [facility] Maternal history of diabetes mellitus Last Documented On 7 2:15PM ; [facility], [facility] Review of Systems Review of Systems not supported for this document type No Review of Systems Recorded Mental Status Description No anxiety Functional Status No Functional Status Recorded Physical Exam Physical Exam not supported for this document type No Physical Exam Recorded Allergies Includes: Active, inactive, and resolved Allergies No Known Allergies Encounters Includes: Encounters from 02/07/2024 through 02/06/2025 Encounter Provider Location Date Check-In Time Check-Out Time Diagnosis Post Op Toney Holcomb MD [facility] 10:22AM 10:45AM Overweight BRACE FITTING Toney Holcomb MD [facility] 10:54AM 11:59PM Post Op Toney Holcomb MD [facility] 10:25AM 10:48AM Overweight Post Op Toney Holcomb MD [facility] 10:37AM 11:10AM Overweight Post Op Toney Holcomb MD [facility] 025 10:38AM 11:21AM [facility] Toney Holcomb MD 025 02/25/2024 1:12PM 02/25/2024 11:59PM [facility] Toney Holcomb MD Surgery 025 9:54AM 02/25/2024 11:59PM Follow Up Toney Holcomb MD [facility] 024 10:16AM 10:52AM Follow Up Tony Frey [facility] 024 1:19PM 2:34PM EMG [facility] 024 11:34AM 02/06/2024 11:59PM Insurance Includes: Active Insurance Policies Plan Name Member ID Group # Subscriber Relationship Effect rene Dates 1 - [employer] [id number] Ann Marie Potter Self 03/19/19 24 - Unknown Clinical Notes Includes: Signed Clinical Notes starting from 03/02/2022 * Progress note Date Encounter Last Documented by 07/30/2024 Post Op Last documented on 07/30/2024; 4:28 PM, Toney Holcomb MD; [facility], [facility] Active Problems & Conditions - Joint Pain in the Right Hip - Pain At Base of Both Thumbs - Pain in Both Feet - Pain in the Right Hand Only Chief Complaint The Chief Complaint is: R THUMB PAIN. Referred Here Referred by PCP. History of Present Illness Ann Marie Potter is a 69 year old female. - [...] Care Team - MARLENY RASCON MD - NITRO WORKER Health Reminders - Assess BMI satisfied 07/30/2024. - Assess Tobacco Use satisfied 07/30/2024. Notes This dictation was done with voice recognition software and may contain errors and omissions. * Progress note Date Encounter Last Documented by 07/09/2024 Post Op Last documented on 07/11/2024; 2:05 PM, Toney Holcomb MD; [facility], [facility] Active Problems & Conditions - Joint Pain in the Right Hip - Pain At Base of Both Thumbs - Pain in Both Feet - Pain in the Right Hand Only Chief Complaint The Chief Complaint is: R THUMB PAIN. Referred Here Referred by PCP. History of Present Illness Ann Marie Potter is a 69 year old female. - [...] in diet. No recent change in diet. Caffeine use: Caffeine use. Tobacco use: No tobacco use and not a current smoker. Tobacco non-user. Smoking status: Never smoker. Alcohol: Not using alcohol. Drug Use: Not using drugs. Habits: Exercising regularly. Allergies - No Known Allergies Family History Diabetes mellitus Maternal: Diabetes mellitus Sororal: Diabetes [...] allergic reaction. Physical Findings - Vitals taken 07/09/2024 10:27 am BH Height 66 in 59 - 78 Weight 160 lbs 95 - 175 Body Mass Index 25.8 kg/m2 Body Surface Area 1.8 m2 Today we removed the cast. The scars look good. She is tender over the left thumb CMC joint. Assessment - Overweight Counseling/Education - Tobacco non-user - Use of tobacco assessment performed - Lose weight Plan - Patient screened for future fall risk: documentation of any fall with injury in past year Fall Risk Assessment: This patient has been [...] therapy has been discussed with the patient. After consent had been obtained the left thumb CMC joint was injected with 0.5 cc of Kenalog-10 and 0.5 cc of 1% lidocaine. The patient tolerated the injection well. Thumb spica velcro brace from the cast room Referred to therapy for range of motion scar massage Follow up 3 weeks Care Team - MARLENY RASCON MD - NITRO WORKER Notes This dictation was done with voice recognition software and may contain errors and omissions. * Progress note Date Encounter Last Documented by 06/23/2024 Post Op Last documented on 06/23/2024; 11:48 PM, Toney Holcomb MD; [facility], [facility] Active Problems & Conditions - Joint Pain in the Right Hip - Pain At Base of Both Thumbs - Pain in Both Feet - Pain in the Right Hand Only Chief Complaint The Chief Complaint is: R THUMB PAIN. Referred Here Referred by PCP. History of Present Illness Ann Marie Potter is a 69 year old female. - [...] in diet. No recent change in diet. Caffeine use: Caffeine use. Tobacco use: No tobacco use and not a current smoker. Tobacco non-user. Smoking status: Never smoker. Alcohol: Not using alcohol. Drug Use: Not using drugs. Habits: Exercising regularly. Allergies - No Known Allergies Family History Diabetes mellitus Maternal: Diabetes mellitus Sororal: Diabetes [...] allergic reaction. Physical Findings - Vitals taken 06/23/2024 10:49 am BH Height 66 in 59 - 78 Weight 160 lbs 95 - 175 Body Mass Index 25.8 kg/m2 Body Surface Area 1.8 m2 Wounds look good. No sign of infection. Assessment - Overweight Counseling/Education - Tobacco non-user - Use of tobacco assessment performed - Lose weight Plan - Patient screened for future fall risk: documentation of any fall with injury in past year Fall Risk Assessment: This patient has been [...] therapy has been discussed with the patient. Sutures removed today. Thumb spica cast. Follow up in 2 weeks Care Team - MARLENY RASCON MD - NITRO WORKER Notes This dictation was done with voice recognition software and may contain errors and omissions. * Progress note Date Encounter Last Documented by 06/04/2024 Post Op Last documented on 06/05/2024; 10:12 AM, Toney Holcomb MD; [facility], [facility] Active Problems & Conditions - Joint Pain in the Right Hip - Pain At Base of Both Thumbs - Pain in Both Feet - Pain in the Right Hand Only Referred Here Referred by. History of Present Illness Ann Marie Potter is a 69 year old female. - [...] Care Team - MARLENY RASCON MD - NITRO WORKER Notes This dictation was done with voice recognition software and may contain errors and omissions. * Progress note Date Encounter Last Documented by 02/25/2024 Follow Up Last documented on 02/26/2024; 2:24 PM, Toney Holcomb MD; [facility], [facility] Active Problems & Conditions - Joint Pain in the Right Hip - Pain At Base of Both Thumbs - Pain in Both Feet - Pain in the Right Hand Only Chief Complaint The Chief Complaint is: Gregor thumb pain. Patient presents with a right thumb CMC joint pain. SHe is requesting an injection. Referred Here Referred by pcp. History of Present Illness Ann Marie Potter is a 68 year old female. - Allergy list reviewed - Problem list reviewed - Medication list reviewed - Previous history of new onset pain Injury is not work related or an automotive accident - - Review of medications documented - No previous treatment. Current Medication - Advair Diskus 250-50 MCG/ACT Inhalation Aerosol Powder Breath Activated 0 days, 0 refills - Aleve 220 MG Oral Capsule take as directed 0 days, 0 refills - Fluticasone Propionate 50 MCG/ACT Nasal Suspension 90 days, 0 refills - Gabapentin 100 MG Oral Capsule 1 every bedtime, 30 days, 0 refills - Hydroxyurea 500 MG Oral Capsule 90 days, 0 refills - Methocarbamol 500 MG Oral Tablet 5 days, 0 refills - Montelukast Sodium 10 MG Oral Tablet 90 days, 0 refills - Pantoprazole Sodium 40 [...] in diet. No recent change in diet. Caffeine use: Caffeine use. Tobacco use: No tobacco use and not a current smoker. Tobacco non-user. Smoking status: Never smoker. Alcohol: Not using alcohol. Drug Use: Not using drugs. Habits: Exercising regularly. Allergies - No Known Allergies Family History Diabetes mellitus Maternal: Diabetes mellitus Sororal: Diabetes [...] no Hypertension, and no High Cholesterol. Pulmonary: No daytime asthma symptoms and no chronic cough. No wheezing. Gastrointestinal: No heartburn and no abdominal pain. No Indigestion, no Peptic Ulcer, no GI Stomach Bleed, no Ulcers, and no Acid Reflux. Endocrine: No hot flashes, no muscle weakness, no Diabetes, no Hypothyroid, and no Hyperthyroid. Hematologic: No easy bleeding, no tendency for easy bruising, and no Anemia. Musculoskeletal: No Arthritis and no lower back pain. No soft tissue swelling and no localized joint pain. Neurological: No dizziness, no convulsions, and no numbness. Psychological: No anxiety, no emotional lability, no depression, and no insomnia. Not crying for no reason. Skin: No dry skin. No Ulcers, no Scars, and no rash. Allergic and Immunologic: No complaint of seasonal allergic reaction. rev 09/12/23 Physical Findings - Vitals taken 02/25/2024 10:23 am ab Height 66 in 59 - 78 Weight 160 lbs 95 - 175 Body Mass Index 25.8 kg/m2 Body Surface Area 1.8 m2 Patient is tender over the right thumb CMC joint Counseling/Education - Tobacco non-user - Use of tobacco assessment performed Plan - Patient screened for future fall risk: documentation of any fall with injury in past year After consent had been obtained the right thumb CMC joint was injected with 0.5 cc of Kenalog-10 and 0.5 cc of 1% lidocaine. The patient tolerated the injection well. Today I went over the procedure with the patient in detail and answered her questions. She is not sure when she wants to have this procedure done. But all her questions have been answered. She will be scheduled for right thumb CMC interposition arthroplasty and ligament reconstruction using split FCR tendon in the near future when the patient decides Care Team - MARLENY RASCON MD - NITRO WORKER Notes This dictation was done with voice recognition software and may contain errors or omissions. * Progress note Date Encounter Last Documented by 02/12/2024 Follow Up Last documented on 02/12/2024; 2:32 PM, Tony Frey DPM; [facility], [facility] Active Problems & Conditions - Joint Pain in the Right Hip - Pain At Base of Both Thumbs - Pain in Both Feet - Pain in the Right Hand Only Chief Complaint The Chief Complaint is: Bilateral foot pain. Referred Here Referred by self. Last PCP visit: 10/22/23 History of Present Illness ANN MARIE POTTER is a 68 year old female. - Allergy list reviewed - Problem list reviewed - Medication list reviewed - - Review of medications documented 68-year-old female who is seen today for what was thought to be some type of underlying neurologic issue with her lower extremities. We would entertain the idea of restless leg syndrome based on her presentation and clinical evaluation. Nonetheless we did send her for EMG/NCV testing. She has had that done earlier today and is here for the results. She is here with her . Current Medication - Advair Diskus 250-50 MCG/ACT Inhalation Aerosol Powder Breath Activated 0 days, 0 refills - Aleve 220 MG Oral Capsule take as directed 0 days, 0 refills - Fluticasone Propionate 50 MCG/ACT Nasal Suspension 90 days, 0 refills - Hydroxyurea 500 MG Oral Capsule 90 days, 0 refills - Methocarbamol 500 MG Oral Tablet 5 days, 0 refills - Montelukast Sodium 10 MG Oral Tablet 90 days, 0 refills - Pantoprazole Sodium 40 [...] in diet. No recent change in diet. Caffeine use: Caffeine use. Tobacco use: No tobacco use and not a current smoker. Tobacco non-user. Smoking status: Never smoker. Alcohol: Not using alcohol. Drug Use: Not using drugs. Habits: Exercising regularly. Allergies - No Known Allergies Family History Diabetes mellitus Maternal: Diabetes mellitus Sororal: Diabetes [...] allergic reaction. Physical Findings - Vitals taken 02/12/2024 02:07 pm ck Height 66 in 59 - 78 Weight 160 lbs 95 - 175 Body Mass Index 25.8 kg/m2 Body Surface Area 1.8 m2 This is a well-developed well-nourished 68-year-old female who is here for evaluation of the foot ankle and lower leg on the left and right sides. She is in no acute distress. She is alert and oriented x3. Examination of the foot ankle and lower leg is largely unchanged from previous. She has subjective dysesthesias in both lower extremities. There is no open skin lesion or abrasion. There is no clear clinical evidence of tarsal tunnel entrapment symptoms. There is no convincing evidence of Harding's nerve entrapment. She maintains good strength in all directions. There is good skin temperature. The Achilles deep tendon reflex appears to be within normal limits. She has equinus which does improve with knee flexion. No other substantial changes are identified. Tests Electrophysiologic examination performed 02/12/2024 indicates sensory poly neuropathic process involving both lower extremities. Assessment Differential diagnosis restless leg syndrome versus peripheral neuropathy bilateral lower extremities. Metatarsalgia Hallux abductovalgus bilaterally with degenerative change 1st metatarsophalangeal joint left Counseling/Education Tony Frey DPM performed the following counseling: - Tobacco non-user - Use of tobacco assessment performed Plan StartCited - Other Gabapentin 100 MG capsule 1 every bedtime, 30 days, 0 refills EndCited Tony BurtonDrew Frey DPM ordered the following therapy - Patient screened for future fall risk: documentation of any fall with injury in past year Fall Risk Assessment: This patient has been [...] therapy has been discussed with the patient. I did review the history. I did examine this patient. 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 See scanned report. I did review the findings with her and her . We did discuss her symptoms. We did offer to place her on a baseline dose of gabapentin and see if that gives her relief. We did discuss the risks, course, alternatives to that medication. We will make a referral to Neurology for further investigation of the underlying etiology of this problem and additional treatment as this is not something I am going to manage fpc. I am simply providing this medication to try to give her symptomatic relief until she can get into a neurology referral. She is understanding and agreeable with that plan of care We did prescribe for her gabapentin 100 mg q.h.s., 30 tablets prescribed. After thorough evaluation and review of history and reported medications, it is my opinion this patient would be best served on a temporary basis with use of this schedule 2, 3, 4, 5 medication, which falls under [place] regulations 218A.172, 218A.205 and other related regulations. The purpose of this medication is to assist in relief of symptoms in order to promote optimal recovery. Proper utilization of this medication was discussed. A discussion regarding safeguarding this medication to protect against diversion or ease of access to this drug by any person other than the patient was undertaken. Proper disposal was discussed. The patient expressed understanding. We will plan to see her back as needed. Care Team - MARLENY BESSON, MD - NITRO WORKER Notes This dictation was done with voice recognition software and may contain errors and omissions.
--- OUTSIDE RECORDS SUMMARY | 2025-02-06 17:36 | XMS_ITS | Clinical Summary ---
Author Organization 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 Name Role Phone ABIODUN ALEXANDER, MARLENY Unavailable [phone] Aicha ALEXANDER, Toney Deluca Unavailable [phone] Reason for Visit and Chief Complaint The Chief Complaint is: R THUMB PAIN Problems Includes: Problems addressed during this encounter and other active Problems All Visits Onset Date Resolved Date Provider Condition S tatus Soft Tissue Pain Foot Bilateral 02/06/2024 Tony Frey DPM Active Last Documented On 4 1:26PM ; [facility] Soft Tissue Pain Hand Base o f Thumb Bilateral 08/20/2023 Toney Holcomb MD Active Last Documented On 4 10:17AM ; [facility] Joint Pain Hip Right 07/26/2022 Curry Yeung Active Last Documented On 3 3:05PM ; [facility] Soft Tissue Pain Hand Unilaterally Right 01/17/2017 Toney Holcomb MD Active Last Documented On 7 1:20PM ; [facility] Plan of Treatment - Patient screened for future fall risk: documentation of any fall with injury in past year - Last Documented On 07/11/2024 2:05PM ; [facility] Fall Risk Assessment: This patient has [...] with the patient. - Last Documented On 07/11/2024 2:05PM ; [facility], [facility] After consent had been obtained the left thumb CMC joint was injected with 0.5 cc of Kenalog-10 and 0.5 cc of 1% lidocaine. The patient tolerated the injection well. Thumb spica velcro brace from the cast room Referred to therapy for range of motion scar massage Follow up 3 weeks - Last Documented On 07/11/2024 2:05PM ; [facility], [facility] Instructions to patient Lose weight Last Documented On 5 10:27AM ; [facility], [facility] Assessments Includes: Assessments from this encounter Findings - Overweight - Last Documented On 07/11/2024 2:05PM ; [facility], [facility] Instructions Includes: Instructions from this encounter Instructions to patient Lose weight Last Documented On 5 10:27AM ; [facility], [facility] Medical Equipment - Implanted Devices Includes: Current Devices No Medical Equipment Recorded Medications Includes: Medications discussed during this encounter and other current Medications Current Medications (continue as prescribed) Gabapentin 100 MG Oral Capsule 02/12/2024 Provider: Tony Frey DPM Diagnosis: 1 every bedtime Last Documented On 2:43PM By Dr. Frey ; [facility], [facility] Aleve 220 MG Oral Capsule 02/06/2024 Provider: Diagnosis: Last Documented On 4 1:27PM By Gabbie Brandon ; [facility], [facility] Advair Diskus 250-50 MCG/ACT Inhalation Aerosol Powder Breath Activated 02/06/2024 Provider: Diagnosis: Last Documented On 4 1:28PM By Gabbie Huston [facility], [facility] Protonix 20 MG Oral Tablet Delayed Release 02/06/2024 Provider: Diagnosis: Last Documented On 4 1:32PM By Gabbie Brandon ; [facility], [facility] Xyzal Allergy 24HR 5 MG Oral Tablet 02/06/2024 Provi deng: Diagnosis: Last Documented On 4 1:32PM By Gabbie Brandon ; [facility], [facility] Methocarbamol 500 MG Oral Tablet 08/29/2023 Provider : MARLENY RASCON MD Diagnosis: Last Documented On 4 10:15AM By Lele Cardoza ; [facility] Xiaflex 0.9 MG Injection Solution Reconstituted 2023 Provider: Diagnosis: Last Documented On 4 10:15AM By Lele Cardoza ; [facility] Pantoprazole Sodium 40 MG Oral Tablet Delayed Release 05/18/2023 Provider: Diagnosis: Last Documented On 4 10:09AM By Concha Pretty ; [facility], [facility] Past Medications on file HYDROcodone-Acetaminophen 7. 5-325 MG Oral Tablet 05/20/2024 - 05/25/2024 Provider: Toney Holcomb MD Diagnosis: 1 q 6 hours prn pain Last Documented On 5 9:19AM By Dr. Holcomb ; [facility] Montelukast Sodium 10 MG Oral Tablet 02/06/2024 - 04/19 Provider: Diagnosis: Last Documented On 4 1:27PM By Gabbie Brandon ; [facility] Hydroxyurea 500 MG Oral Capsule 02/06/2024 - Provider: Diagnosis: Last Documented On 4 1:27PM By Gabbie Brandon ; [facility] Fluticasone Propionate 50 MC G/ACT Nasal Suspension 02/06/2024 - 05/06/2024 Provider: Diagnosis: Last Documented On 4 1:27PM By Gabbie Brandon ; [facility] Aspirin Adult Low Strength 8 1 MG Oral Tablet Delayed Release 01/12/2023 - 02/26/2023 Provider: Kvng Deras MD Diagnosis: twice a day Last Documented On 3 10:58AM By Kvng Deras ; [facility], [facility] Medications Administered Includes: Administered Medications from this encounter No Administered Medications Recorded Vital Signs Includes: Vital Signs from this encounter Vital Name 07/09/2024 10:27A Height (in) 66 Weight (lb) 160 Body Mass Index 25.8 Body Surface Area 1.8 Note: Last Documented: On 07/09/2024 10:27A M ; [facility], [facility] Results Includes: Results discussed during this encounter No Results Recorded For Specified Dates History of Present Illness Includes: History of Present Illness from this encounter ZANE Millan is a 69 year old female. - Allergy list reviewed - Problem list reviewed - Medication list reviewed - - Review of medications documented Social History Description Last Updated Tobacco non-user 01/30/2023 Last Documented On 5 10:27AM ; [facility], [facility] No recent change in diet 01/30/2023 Last Documented On 5 10:27AM ; [facility], [facility] Not a current smoker. 01/30/2023 Last Documented On 5 10:27AM ; [facility], [facility] No tobacco use 01/17/2017 Last Documented On 5 10:27AM ; [facility], [facility] Smoking status : Never smoker 01/17/2017 Last Documented On 5 10:27AM ; [facility], [facility] Caffeine use 01/17/2017 Last Documented On 5 10:27AM ; [facility], [facility] Exercising regularly 01/17/2017 Last Documented On 5 10:27AM ; [facility], [facility] No recent change in diet 01/17/2017 Last Documented On 5 10:27AM ; [facility], [facility] Not a current smoker 01/17/2017 Last Documented On 5 10:27AM ; [facility], [facility] Not using alcohol 01/17/2017 Last Documented On 5 10:27AM ; [facility], [facility] Not using drugs 01/17/2017 Last Documented On 5 10:27AM ; [facility], [facility] Procedures and Surgical History Includes: Procedures from this encounter Procedures Code Diagnosis Performing Provider Service Location Service Date DRAIN/INJECT, JOINT/BURSA (Unrelated Procedure, LEFT) Pain in left finger(s) Toney Holcomb MD [facility] 07/09/2024 Last Documented On 5 10:19AM ; [facility], [facility] Triamcinolone/Kenalog, 10mg per cc [id number] Pain in left finger(s) Toney Holcomb MD [facility] 07/09/2024 Last Documented On 5 10:19AM ; [facility], [facility] Surgical History Last Updated History of total hip replacement 024 Last Documented On 5 10:27AM ; [facility], [facility] History of History of Gallbladder 2023 Last Documented On 5 10:27AM ; [facility], [facility] History of appendectomy 01/17/2017 Last Documented On 5 10:27AM ; [facility], [facility] History of hernia repair 01/17/2017 Last Documented On 5 10:27AM ; [facility], [facility] History of hysterectomy 01/17/2017 Last Documented On 5 10:27AM ; [facility], [facility] Medical History Includes: Medical History addressed during this encounter Description Last Updated Finger removal of cyst, Vari cose vein lasered, Blocked abdominal sx ~ ~anmeia ~acid reflux ~high platelets and mutated Orestes gene 02/06/2024 Last Documented On 5 10:27AM ; [facility], [facility] History of Anemia 02/06/2024 Last Documented On 5 10:27AM ; [facility], [facility] History of arthritis 02/06/2024 Last Documented On 5 10:27AM ; [facility], [facility] History of asthma 02/06/2024 Last Documented On 5 10:27AM ; [facility], [facility] History of Heartburn / Acid Reflux 02/05 Last Documented On 5 10:27AM ; [facility], [facility] History of History of Blood Transfusion 02/06/2024 Last Documented On 5 10:27AM ; [facility], [facility] A recent immunization for pneumococcal p neumonia 01/10/2017 01/17/2017 Last Documented On 5 10:27AM ; [facility], [facility] Arthritic joint problems 01/17/2017 Last Documented On 5 10:27AM ; [facility], [facility] Gallbladder disease 01/17/2017 Last Documented On 5 10:27AM ; [facility], [facility] Family History Includes: Family History addressed during this encounter Description Last Updated Diabetes mellitus 02/06/2024 Last Documented On 5 10:27AM ; [facility] Sororal history of diabetes mellitus 03/2016 Last Documented On 5 10:27AM ; [facility] Maternal history of diabetes mellitus Last Documented On 5 10:27AM ; [facility] Review of Systems Includes: Review of [...] Time Diagnosis Post Op Toney Holcomb MD [facility] 5 10:25AM 10:48AM Overweight Insurance Includes: Active Insurance Policies Plan Name Member ID Group # Subscriber Relationship Effect rene Dates 1 - [employer] [id number] Ann Marie Millan Self 03/19/19 24 - Unknown Clinical Notes Includes: Clinical Notes from this encounter * Progress note Date Encounter Last Documented by 07/09/2024 Post Op Last documented on 07/11/2024; 2:05 PM, Toney Holcomb MD; [facility] Active Problems & Conditions - Joint [...] Care Team - MARLENY RASCON MD - CYCLE LIAISON Notes This dictation was done with voice recognition software and may contain errors and omissions.
--- OUTSIDE RECORDS SUMMARY | 2025-02-06 17:36 | XMS_ITS | Clinical Summary ---
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 Name Role Phone ABIODUN ALEXANDER, MARLENY Unavailable [phone] Aicha ALEXANDER, Toney Deluca Unavailable [phone] Reason for Visit and Chief Complaint The Chief Complaint is: R THUMB PAIN Problems Includes: Problems addressed during this encounter and other active Problems All Visits Onset Date Resolved Date Provider Condition S tatus Soft Tissue Pain Foot Bilateral 02/06/2024 Tony Frey DPM Active Last Documented On 4 1:26PM ; [facility] Soft Tissue Pain Hand Base o f Thumb Bilateral 08/20/2023 Toney Holcomb MD Active Last Documented On 4 10:17AM ; [facility] Joint Pain Hip Right 07/26/2022 Curry Yeung Active Last Documented On 3 3:05PM ; [facility] Soft Tissue Pain Hand Unilaterally Right 01/17/2017 Toney Holcomb MD Active Last Documented On 7 1:20PM ; [facility] Plan of Treatment - Patient screened for future fall risk: documentation of any fall with injury in past year - Last Documented On 06/23/2024 11:48PM ; [facility] Fall Risk Assessment: This patient has [...] with the patient. - Last Documented On 06/23/2024 11:48PM ; [facility], [facility] Sutures removed today. Thumb spica cast. Follow up in 2 weeks - Last Documented On 06/23/2024 11:48PM ; [facility], [facility] Instructions to patient Lose weight Last Documented On 5 10:50AM ; [facility], [facility] Assessments Includes: Assessments from this encounter Findings - Overweight - Last Documented On 06/23/2024 11:48PM ; [facility], [facility] Instructions Includes: Instructions from this encounter Instructions to patient Lose weight Last Documented On 5 10:50AM ; [facility], [facility] Medical Equipment - Implanted Devices Includes: Current Devices No Medical Equipment Recorded Medications Includes: Medications discussed during this encounter and other current Medications Current Medications (continue as prescribed) Gabapentin 100 MG Oral Capsule 02/12/2024 Provider: Tony Frey DPM Diagnosis: 1 every bedtime Last Documented On 4 2:43PM By Dr. Frey ; [facility], [facility] Aleve 220 MG Oral Capsule 02/06/2024 Provider: Diagnosis: Last Documented On 4 1:27PM By Gabbie Brandon ; [facility], [facility] Advair Diskus 250-50 MCG/ACT Inhalation Aerosol Powder Breath Activated 02/06/2024 Provider: Diagnosis: Last Documented On 4 1:28PM By Gabbie Brandon ; [facility], [facility] Protonix 20 MG Oral Tablet Delayed Release 02/06/2024 Provider: Diagnosis: Last Documented On 4 1:32PM By Gabbie Brandon ; [facility], [facility] Xyzal Allergy 24HR 5 MG Oral Tablet 02/06/2024 Provi deng: Diagnosis: Last Documented On 4 1:32PM By Gabbie Brandon ; [facility], [facility] Methocarbamol 500 MG Oral Tablet 08/29/2023 Provider : MARLENY RASCON MD Diagnosis: Last Documented On 4 10:15AM By Lele Cardoza ; [facility], [facility] Xiaflex 0.9 MG Injection Solution Reconstituted 2023 Provider: Diagnosis: Last Documented On 4 10:15AM By Lele Long ; [facility] Pantoprazole Sodium 40 MG Oral Tablet Delayed Release 05/18/2023 Provider: Diagnosis: Last Documented On 4 10:09AM By Concha Pretty ; [facility] Past Medications on file HYDROcodone-Acetaminophen 7. 5-325 MG Oral Tablet 05/20/2024 - 05/25/2024 Provider: Toney Holcomb MD Diagnosis: 1 q 6 hours prn pain Last Documented On 5 9:19AM By Dr. Holcomb ; [facility] Montelukast Sodium 10 MG Oral Tablet 02/06/2024 - 04/19 Provider: Diagnosis: Last Documented On 4 1:27PM By Gabbie Brandon ; [facility] Hydroxyurea 500 MG Oral Capsule 02/06/2024 - Provider: Diagnosis: Last Documented On 4 1:27PM By Gabbie Brandon ; [facility] Fluticasone Propionate 50 MC G/ACT Nasal Suspension 02/06/2024 - 05/06/2024 Provider: Diagnosis: Last Documented On 4 1:27PM By Gabbie Brandon ; [facility] Aspirin Adult Low Strength 8 1 MG Oral Tablet Delayed Release 01/12/2023 - 02/26/2023 Provider: Kvng Deras MD Diagnosis: twice a day Last Documented On 3 10:58AM By Kvng Deras ; [facility] Medications Administered Includes: Administered Medications from this encounter No Administered Medications Recorded Vital Signs Includes: Vital Signs from this encounter Vital Name 06/23/2024 10:49A Height (in) 66 Weight (lb) 160 Body Mass Index 25.8 Body Surface Area 1.8 Note: Last Documented: On 06/23/2024 10:49A M ; [facility] Results Includes: Results discussed during this [...] Tobacco non-user 01/30/2023 Last Documented On 5 10:49AM ; [facility], [facility] No recent change in diet 01/30/2023 Last Documented On 5 10:49AM ; [facility] Not a current smoker. 01/30/2023 Last Documented On 5 10:49AM ; [facility] No tobacco use 01/17/2017 Last Documented On 5 10:49AM ; [facility] Smoking status : Never smoker 01/17/2017 Last Documented On 5 10:49AM ; [facility] Caffeine use 01/17/2017 Last Documented On 5 10:49AM ; [facility], [facility] Exercising regularly 01/17/2017 Last Documented On 5 10:49AM ; [facility] No recent change in diet 01/17/2017 Last Documented On 5 10:49AM ; [facility], [facility] Not a current smoker 01/17/2017 Last Documented On 5 10:49AM ; [facility] Not using alcohol 01/17/2017 Last Documented On 5 10:49AM ; [facility], [facility] Not using drugs 01/17/2017 Last Documented On 5 10:49AM ; [facility], [facility] Procedures and Surgical History Includes: Procedures from this encounter Procedures Code Diagnosis Performing Provider Service Location Service Date APPLICATION OF FOREARM CAST (RIGHT, Related Proc Same ) [address] Unil primary osteoarth of first carpometacarp joint, r hand Toney Holcomb MD [facility] 06/23/2024 Last Documented On 5 3:28PM ; [facility], [facility] [employer] SHORT ARM ADULT 11 YEARS + Q4010 Unil primary osteoarth of first carpometacarp joint, r hand Toney Holcomb MD [facility] 06/23/2024 Last Documented On 5 3:28PM ; [facility], [facility] Surgical History Last Updated History of total hip replacement 024 Last Documented On 5 10:49AM ; [facility], [facility] History of History of Gallbladder 2023 Last Documented On 5 10:49AM ; [facility], [facility] History of appendectomy 01/17/2017 Last Documented On 5 10:49AM ; [facility], [facility] History of hernia repair 01/17/2017 Last Documented On 5 10:49AM ; [facility], [facility] History of hysterectomy 01/17/2017 Last Documented On 5 10:49AM ; [facility], [facility] Medical History Includes: Medical History addressed during this encounter Description Last Updated Finger removal of cyst, Vari cose vein lasered, Blocked abdominal sx ~ ~anmeia ~acid reflux ~high platelets and mutated Orestes gene 02/06/2024 Last Documented On 5 10:49AM ; [facility], [facility] History of Anemia 02/06/2024 Last Documented On 5 10:49AM ; [facility], [facility] History of arthritis 02/06/2024 Last Documented On 5 10:49AM ; [facility], [facility] History of asthma 02/06/2024 Last Documented On 5 10:49AM ; [facility], [facility] History of Heartburn / Acid Reflux 02/05 Last Documented On 5 10:49AM ; [facility], [facility] History of History of Blood Transfusion 02/06/2024 Last Documented On 5 10:49AM ; [facility], [facility] A recent immunization for pneumococcal p neumonia 01/10/2017 01/17/2017 Last Documented On 5 10:49AM ; [facility], [facility] Arthritic joint problems 01/17/2017 Last Documented On 5 10:49AM ; [facility], [facility] Gallbladder disease 01/17/2017 Last Documented On 5 10:49AM ; [facility], [facility] Family History Includes: Family History addressed during this encounter Description Last Updated Diabetes mellitus 02/06/2024 Last Documented On 5 10:49AM ; [facility], [facility] Sororal history of diabetes mellitus 03/2016 Last Documented On 5 10:49AM ; [facility], [facility] Maternal history of diabetes mellitus Last Documented On 5 10:49AM ; [facility] Review of Systems Includes: Review of [...] Time Diagnosis Post Op Toney Holcomb MD [facility] 5 10:37AM 11:10AM Overweight Insurance Includes: Active Insurance Policies Plan Name Member ID Group # Subscriber Relationship Effect rene Dates 1 - [employer] [id number] Ann Marie Millan Self 03/19/19 24 - Unknown Clinical Notes Includes: Clinical Notes from this encounter * Progress note Date Encounter Last Documented by 06/23/2024 Post Op Last documented on 06/23/2024; 11:48 PM, Toney Holcomb MD; [facility] Active Problems & Conditions - Joint [...] Care Team - MARLENY RASCON MD - SKI TOPPER Notes This dictation was done with voice recognition software and may contain errors and omissions.
[2025-02-06 18:00] VITALS: BP 187/90; PULSE 78; O2SAT 96
[2025-02-06 18:30] VITALS: BP 187/90; PULSE 68; O2SAT 97
--- NOTE | 2025-02-06 18:30 | XR_ITS ---
PROCEDURE INFORMATION: Exam: XR Right Knee Exam date and time: 02/06/2025 6:33 PM Age: 69 years old Clinical indication: Pain; Knee; Right; Additional info: Right knee pain TECHNIQUE: Imaging protocol: Radiologic exam of the right knee. Views: 3 views. Total images: 3 COMPARISON: CR [id number] XR foot wt bearing RT 3V 06/03/2018 9:47 AM FINDINGS: Bones/joints: Mild osteopenia. No acute fracture, joint dislocation, or joint effusion. Mild tricompartment degenerative arthritis. Patellar enthesophyte at the quadriceps tendon insertion. No concerning bone lesions. Soft tissues: Unremarkable soft tissues. Vasculature: Mild atherosclerotic vascular calcifications. IMPRESSION: 1. No acute osseous abnormality. 2. Mild tricompartment degenerative arthritis.
--- NOTE | 2025-02-06 18:47 | ED_ITS ---
Discharge Plan Disposition Patient Disposition: Home, Self-Care Condition: Good Prescriptions Prescriptions: No Action ProAir HFA 90 mcg/actuation HFA aerosol inhaler 2 puff INHALATION Q4-6H PRN (Reason: allergies) hydroxyurea 500 mg capsule See Rx Instructions .ROUTE .COMPLEX Qty: 90 3RF Dose Instruction: TAKE ONE CAPSULE BY MOUTH EVERY DAY Rx Instructions: TAKE ONE CAPSULE BY MOUTH EVERY DAY pantoprazole 40 mg tablet,delayed release (DR/EC) 40 mg PO DAILY 90 Days montelukast 10 mg tablet 10 mg PO DAILY 90 Days fluticasone propionate [Flonase Allergy Relief] 50 mcg/actuation spray,suspension 1 spray INTRANASAL BID Rx Instructions: administer into each nostril albuterol 90 mcg/actuation aerosol 90 mcg INHALATION NEEDED PRN (Reason: Breathing Problems) levocetirizine 5 mg tablet 5 mg PO DAILY Patient Comments: TAKE 1 TABLET BY MOUTH ONCE DAILY IN THE EVENING naproxen sodium [Aleve] 220 mg tablet 220 mg PO BID PRN alpha lipoic acid 300 mg capsule 300 mg PO DAILY Referrals Follow up/Referrals: Kemar Shore MD [Primary Care Provider, Internal Medicine] - See instructions Adrien German DO [Staff Physician, Orthopedics] - See instructions Activity Restrictions/Add. Instructions Additional Instructions/Restrictions: Your X-ray showed findings of arthritis. If you have persistent pain in your right knee you may contact Dr. German's clinic with the information provided above for further orthopedic evaluation. If you begin experiencing circumstantial swelling of the leg, redness of the leg, fevers, swelling of the joint, or any o ther new or worsening symptoms please return Clinical Impressions Clinical Impression: Acute pain of right knee Print Language Print Language: Belgian Discharge ED Provider: Waylon Viera General Adult HPI General Chief complaint: PAIN Stated complaint: Pain behind right knee Time Seen by Provider: 02/06/25 17:43 Mode of Arrival: Ambulatory Source of Information: Patient Description of Symptoms (Recalled from ER Triage Doc. by RN): pt presents to ED with c/o right knee pain. pt reports symptoms began aroun 1400 today. no known injury. pt reports pain intermittent. 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 Patient states that she was sitting on her recliner earlier this morning and was rhythmically moving her legs due to her restless leg syndrome when she began feeling pain in the posterior aspect of her right knee. She states that this was very sharp and very severe pain that she was experiencing. Pain was relatively transient and only lasted for a couple of minutes. Later in the day while walking she had a recurrence of this pain and this began to worry her so she decided to present here for evaluation. She has not suffered any traumatic injury to the knee. She has not had any lower extremity erythema or edema. She does voice concern over potential blood clot in the right lower extremity. Related Data Home Medications ?Medication ?Instructions ?Recorded ?Confirmed montelukast 10 mg tablet 10 mg PO DAILY allergies 90 days 06/03/18 01/15/25 pantoprazole 40 mg tablet,delayed 40 mg PO DAILY GERD 90 days 06/03/18 01/15/25 release albuterol sulfate 90 mcg/actuation 2 puff inhalation Q 4-6H PRN 11/05/18 01/15/25 aerosol inhaler (ProAir HFA) allergies albuterol 90 mcg/actuation aerosol 90 mcg inhalation A S NEEDED PRN 04/17/19 01/15/25 inhaler Breathing Problems fluticasone propionate 50 1 spray intranasal BID aller gies 04/17/19 01/15/25 mcg/actuation nasal spray,suspension (Flonase Allergy Relief) levocetirizine 5 mg tablet 5 mg PO DAILY 10/23/2412/19 alpha lipoic acid 300 mg capsule 300 mg PO DAILY 01/1501/15/25 naproxen sodium 220 mg tablet 220 mg PO BID PRN 01/15/25 (Aleve) Previous Rx's ?Medication ?Instructions ?Recorded hydroxyurea 500 mg capsule See Rx Instructions .Route 04/24/24 .COMPLEX #90 caps Allergies Allergy/AdvReac Type Severity Reaction Status Date / Time No Known Allergies Allergy Verified 01/15/25 09:16 [facility] Disclaimer: The information contained in this section may have been updated after the patient was seen, as this information can be updated by other users. Medical History (Updated 02/06/25 @ 18:52 by Waylon Maximiliano, DO) Lung disease HTN (hypertension), benign Asthma Thrombocytopenia Hyperlipidemia GERD (gastroesophageal reflux disease) Surgical History (Updated 01/15/25 @ 09:16 by BELL Victoria) History of colonoscopy History of right hip replacement Hx of tonsillectomy Family History Other Diabetes Heart attack Social History (Updated 01/15/25 @ 09:17 by BELL Victoria) Smoking Status: Never smoker alcohol intake: never substance use type: denies use current occupational status: retired Travel in the last 8 weeks?: None household members: spouse housing: house caffeine: Yes Have you lived/traveled outside [place] in past 30 days?: No Contact w/someone who lives/traveled outside [place] past 30 days?: No Exposure to someone with infectious disease in past 14 days?: No Do you have a fever (greater than 100.4 F or 38 C)?: No Have you tested positive for COVID-19?: No Exposed to someone with COVID-19 in past 14 days?: No Do you have a sore throat?: No Do you have a cough?: No Do you have any weakness?: No Do you have any diarrhea?: No Are you experiencing any unusual bleeding?: No Do you have any muscle aches/pain?: No Do you have any abdominal pain?: Yes Are you experiencing loss of taste or smell?: No Other Medical History Have you received the Flu Vaccine for this season: Yes Have you received the Pneumonia Vaccine: Yes ROS Obtained: Yes Systems reviewed as appropriate & no additional complaints except as documented Physical Exam General General appearance: other (See MDM) Respiratory Respiratory exam: Present other (See MDM) Cardiovascular Cardiovascular exam: Present other (See MDM) Neurological Exam Neurological exam: Present other (See MDM) Medical Decision Making Medical Records Medical records reviewed: Yes I reviewed the patient's medical records. Screening: Per USPSTF and CDC recommendations, given the prevalence of disease in our region, it is our hospital?s policy to screen for HIV and viral Hepatitis for all patients aged 18 and over and those with ongoing risk factors. Morales Inquiry Pt receiving controlled substance: No Morales was queried for this patient: No Vital Signs: 02/06/25 17:35 02/06/25 17:35 02/06/25 18:00 Temperature 98.5 F Temperature Source Oral Pulse Rate 86 78 Pulse Rate [Left Radial] 83 Respiratory Rate 16 Blood Pressure 187/90 H 187/90 H Blood Pressure [Right Arm] 187/90 H Blood Pressure Mean [Right Arm] 122 02 Sat by Pulse Oximetry 97 97 96 Oxygen Delivery Method Room Air Room Air Room Air 02/06/25 18:30 Temperature Temperature Source Pulse Rate 68 Pulse Rate [Left Radial] Respiratory Rate Blood Pressure 187/90 H Blood Pressure [Right Arm] Blood Pressure Mean [Right Arm] 02 Sat by Pulse Oximetry 97 Oxygen Delivery Method Room Air Orders (Tests/Meds): ORDERS Category Date Time Status Knee XR right 3 views [XR knee RT 3V] Stat Exams 02/06/25 18:30 Completed Medical Decision Narrative: In summary, this is a 69-year-old female patient who is presenting to the emergency department today for evaluation of pain in the posterior aspect of the right knee that is episodic in nature and has occurred twice today. 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 On initial evaluation of the patient they were resting comfortably in no acute distress and nontoxic in appearance. They are hemodynamically stable, saturating well room air, and are neurologically intact. She is afebrile. On physical examination the patient has no tenderness along the lateral joint line of the right knee. There is no fluctuance on the posterior aspect of the knee to suggest a Resendiz's cyst. Anterior drawer test and posterior drawer test are negative. She has no pain or laxity with varus and valgus maneuver. She has full range of motion of flexion and extension of the knee without pain, however with flexion of the knee she does experience significant popping and cracking within the knee joint itself. Regarding the remainder of her right lower extremity examination she has palpable DP and posterior tibial pulses. There is no poikilothermia or pallor of the extremity to suggest acute limb ischemia. Additionally, she has no circumferential edema or erythema to suggest deep vein thrombus. Differential diagnosis includes osteoarthritis, soft tissue injury such as meniscus tear or ligamentous tear, among others. Low suspicion for tibial plateau fracture given absence of trauma. As stated above I have a very low suspicion for acute limb ischemia or deep vein thrombosis. Additionally, there is no effusion of the joint and there is no erythema of the joint to suggest something like gouty arthritis or septic arthritis. Workup was initiated with an x-ray of the right knee. X-ray was personally turbid by me and demonstrates mild joint space narrowing with no overt bony abnormality. Official radiology read is in agreement states that there is tricompartmental osteoarthritis I have informed the patient that this is likely a soft tissue injury within the knee versus chronic degenerative changes. I have given her the instructions for follow-up with Dr. German's orthopedic clinic. She understands that she can take Tylenol and Motrin for pain at home. At this time all questions been answered and all parties are agreeable with the decision to discharge home Critical Care Critical Care Time Critical Care Time: No
[2025-02-06 19:59] VITALS: BP 135/78; PULSE 74; RESP 18; TEMP 36.9; O2SAT 98
== END 2025-02-06 20:02 | disposition home or self-care (01) ==
PROVIDERS: Emergency Provider Student in an Organized Health Care Education/Training Program; PCP Internal Medicine Adolescent Medicine
DX: M25.561 Pain in right knee (principal); G25.81 Restless legs syndrome
CPT/HCPCS: 73562; 99283; 99284